=== PATIENT | male | born 1985 | race Caucasian/White ===

== ENCOUNTER 2022-01-21 15:54 | Emergency (ER) | payer OTHER, SELFPAY ==
[2022-01-21 16:00] VITALS: BP 169/96; PULSE 83; RESP 16; TEMP 37.1; O2SAT 98
--- NOTE | 2022-01-21 16:29 | ED.URI ---
HPI - URI/Sore Throat General Chief Complaint: Upper Respiratory Infection Stated Complaint: Sore Throat/Chest Congestion Time Seen by Provider: 01/21/22 16:29 Source: patient, RN notes reviewed and old records reviewed Mode of arrival: ambulatory Limitations: no limitations History of Present Illness HPI Narrative: 36-year-old male who presents to [facility] with complaints of sore throat, ringing in his ears with fullness especially to the right ear, cough and some nasal drainage for the past 1 week duration. Patient denies any fevers chill or sweats,denies any body aches, patient has had COVID vaccinations and also flu shot. MD elicited complaint: cough, sore throat and other (ear fullness) Pertinent past history: seasonal allergies and other (asthma) Onset (ago): week(s) Consistency: constant Severity: moderate Pain scale (0-10): 5 Description of mucous: clear Able to tolerate fluids by mouth: Yes Treatments prior to arrival: other (cough drops) Related Data Home Medications Medication Instructions Recorded Confirmed alprazolam [Xanax] 0.5 mg PO TID PRN 01/21/22 01/21/22 sumatriptan succinate 100 mg PO DAILY PRN 01/21/22 01/21/22 Allergies Allergy/AdvReac Type Severity Reaction Status Date / Time ampicillin Allergy Mild Rash Verified 01/21/22 16:17 Penicillins Allergy Mild Rash Verified 01/21/22 16:17 amoxicillin Allergy Unknown Rash Verified 01/21/22 16:17 vancomycin Allergy Unknown Rash Verified 01/21/22 16:17 Review of Systems Review of Systems: CONSTITUTIONAL: Denies fever, chills, or sweats. EYES: Denies visual changes, redness, or discharge. ENT: Positive rhinorrhea, congestion, sore throat, or otalgia with fullness right ear CARDIOVASCULAR: Denies chest pain, palpitations, or edema. RESPIRATORY: Positive cough denies any dyspnea. GASTROINTESTINAL: Denies abdominal pain, nausea, vomiting, or diarrhea. GENITOURINARY: Denies dysuria or hematuria. SKIN: Denies rash or itching. MUSCULOSKELETAL: Denies back pain, joint pain, or myalgia. NEUROLOGIC: Denies headache, numbness, or weakness. PSYCHIATRIC: Positive history of anxiety or depression. All systems reviewed & are unremarkable except as noted in HPI and below PMFSH Past Medical History Medical History (Updated 01/22/22 @ 23:28 by Maite Donis NP) Anxiety Broken arm (~1991) Elevated blood pressure reading in office without diagnosis of hypertension GERD (gastroesophageal reflux disease) Hx of migraines Seasonal asthma Surgical History Surgical History (Updated 01/22/22 @ 23:24 by Maite Donis NP) History of surgery on arm fracture of left humerus with pinning Hx of tonsillectomy (~1999) Family History Family History Mother Hypertension Degenerative disc disease, lumbar Grandparent Malignant neoplasm of prostate Lung cancer Mother Hypertension Grandparent Malignant neoplasm of prostate Family history of lung cancer Other Family history of malignant neoplasm Social History Social History Smoking status: Never smoker Second hand tobacco smoke exposure: No Alcohol intake: current Substance use: never Substance use type: does not use Comments At time of signature, agree with nursing past medical, surgical, social and family history. There is no relevant family history pertinent to the presenting complaint Exam Narrative: GENERAL: Well-appearing, well-nourished, and in no acute distress. HEAD: Normocephalic, atraumatic. EYES: PERRLA and EOMI. ENT: Nares red with clear rhinorrhea no epistaxis. Mucous membranes moist. TMs normal with dull light reflex right ear canal red swollen irritated, throat mild redness with no lesions or exudates, no tonsils present.some post nasal drainage noted. NECK: Supple. No lymphadenopathy CHEST: Clear to auscultation. No respiratory distress. SaO2 98% on room air, n
== END 2022-01-21 16:53 | disposition home or self-care (01) ==
PROVIDERS: Emergency Provider Registered Nurse; PCP Family Medicine
DX: J06.9 Acute upper respiratory infection, unspecified (principal); H60.391 Other infective otitis externa, right ear; F41.9 Anxiety disorder, unspecified
CPT/HCPCS: 87081; 87880; 99213; G0463

== ENCOUNTER 2023-09-16 12:41 | Emergency (ER) | payer OTHER, SELFPAY ==
[2023-09-16] VITALS (11 sets, daily range): BP systolic 115–159; BP diastolic 66–99; PULSE 75–82; RESP 17–20; TEMP 37; O2SAT 98–100
--- NOTE | ~2023-09-16 | XR_ITS ---
XR chest 2V DATE: 09/16/2023 13:03 INDICATION: Upper left chest pain for 2 weeks. Recent diagnosis of hypertension. TECHNIQUE: AP and lateral views COMPARISON: None FINDINGS: Normal heart size. No hilar or mediastinal enlargement. Mild elevation right leaf of diaphragm. No pulmonary infiltrate or consolidation, pleural effusion or pulmonary vascular congestion or pneumo thorax. Included skeletal structures are unremarkable. IMPRESSION: No active cardiopulmonary disease Reviewed, dictated and finalized at location [facility] OPER[employer]
--- NOTE | 2023-09-16 12:42 | ECG_ITS ---
Measurements Intervals Ney Rate: 76 P: 52 NE: 158 QRS: 30 QRSD: 97 T: 24 QT: 258 QTc: 291 Interpretive Statements SINUS RHYTHM POSSIBLE LEFT ATRIAL ENLARGEMENT INCOMPLETE RIGHT BUNDLE BRANCH BLOCK MINIMAL Q WAVES- HIGH LATERAL LEADS NONSPECIFIC ST & T-WAVE ABNORMALITY- ANTEROLAT/INF LEADS BORDERLINE ECG NO PREVIOUS ECG AVAILABLE FOR COMPARISON Electronically Signed On 09-16-2023 13:03:34 NON PROFIT JOB TITLES by Heriberto Cole D.O.
[2023-09-16 13:03] LABS: Basophils Percent Auto 0.1 % (0.2-1.2); Eosinophils Absolute Auto 0.1 K/mm3 (0-0.3); Eosinophils Percent Auto 0.5 % (0-4.4); Hematocrit 47.3 % (42.0-52.0); Hemoglobin 15.9 g/dL (14.0-18.0); Immature Granulocyte Absolute 0.02 K/mm3 (0.00-0.031); Immature Granulocyte Percent A 0.2 % (0-0.5); Lymphocytes Absolute Auto 2.93 K/mm3 (0.9-3.2); Lymphocytes Percent Auto 31.9 % (18.3-44.2); Mean Corpuscular HGB Conc 33.6 g/dl (32-36); Mean Corpuscular Hemoglobin 30.6 pg (26-34); Mean Platelet Volume 9.7 fl (7.4-10.4); Monocytes Absolute Auto 0.4 K/mm3 (0.1-0.6); Monocytes Percent Auto 4.7 % (2.6-8.5); Neutrophils Absolute Auto 5.7 K/mm3 (1.3-6.7); Neutrophils Percent Auto 62.6 % (45.5-73.1); Platelet Count Result 243 k/mm3 (150-375); Red Cell Distribution Width 12.1 % (11.5-14.5); White Blood Count 9.2 K/mm3 (4.5-10.0)
[2023-09-16 13:16] LABS: INR 0.9; Partial Thromboplastin Time 29.3 SECONDS (22.3-36.8); Prothrombin Time 12.8 Seconds (11.1-14.7)
[2023-09-16 13:20] LABS: Alanine Aminotransferase 31 U/L (6-50); Albumin Level 4.9 g/dL (3.5-5.1); Alkaline Phosphatase 44 U/L (38-126); Anion Gap 12 mmol/L (8-16); Aspartate Amino Transferase 27 U/L (17-59); Bilirubin,Total 0.8 mg/dL (0.2-1.3); Blood Urea Nitrogen 10 mg/dL (9-20); Calcium 9.8 mg/dL (8.4-10.2); Carbon Dioxide 26 mmol/L (22-30); Chloride 102 mmol/L (98-107); Estimated CRCL calculation 96 ml/min; Estimated Glomerular Filt Rate > 60; Glucose 96 mg/dL (65-110); Lipase 81 U/L (23-300); Potassium 4.2 mmol/L (3.4-5.0); Sodium 140 mmol/L (137-145)
[2023-09-16 13:30] LABS: Troponin I < 0.012 ng/mL (0.000-0.034)
[2023-09-16] MEDS: MECLIZINE HCL 25 MG TABLET PO (14:54)
--- NOTE | 2023-09-16 15:38 | ED.GENADULT ---
HPI - General Adult General Chief complaint: Chest Pain Stated complaint: Chest Pain, elv BP Time Seen by Provider: 09/16/23 13:59 History of Present Illness HPI narrative: The patient is a 38-year-old male who presents ER with chest discomfort and elevated blood pressure readings. He has been monitoring his blood pressure chronically and is has gone up. He has increased his home medication is also started a new 1 in last 24 hours. He is having some tightness in his chest today went to ER at [facility] and had an EKG however due to the weight he decided to come here. Patient does have some baseline anxiety they take Xanax for but this feels different. Patient reports along with the symptoms over the last month he has been having intermittent dizziness with chest tightness and racing heart. It feels like his vertigo that he has had in the past but more mild. He has only tried meclizine months. No sinus congestion or sore throat or productive cough. No focal weakness or numbness in arm or leg. Related Data Home Medications Medication Instructions Recorded Confirmed alprazolam 0.5 mg tablet (Xanax) 0.5 mg PO TID PRN Panic Attack(S) 01/21/22 04/07/22 sumatriptan succinate 100 mg tablet 100 mg PO DAILY PRN Migraine 01/21/22 04/07/22 Headache losartan 50 mg tablet 50 mg PO 04/07/22 04/07/22 Allergies Allergy/AdvReac Type Severity Reaction Status Date / Time ampicillin Allergy Mild Rash Verified 09/16/23 14:05 Penicillins Allergy Mild Rash Verified 09/16/23 14:05 amoxicillin Allergy Unknown Rash Verified 09/16/23 14:05 vancomycin Allergy Unknown Rash Verified 09/16/23 14:05 Review of Systems Review of Systems: All systems reviewed & are unremarkable except as noted in HPI and below Constitutional: Constitutional: Reports no additional constitutional complaints ENT: Reports dizziness, Denies nasal congestion and Denies sore throat Cardiovascular: Cardiovascular: Reports chest pain, Reports rapid heart rate and Denies radiating jaw, neck or arm pain Respiratory: Respiratory: Reports no additional respiratory complaints Gastrointestinal: Gastrointestinal: Reports no additional gastrointestinal complaints Neurologic: Reports system reviewed and no additional complaints, except as documented PMFSH Past Medical History Medical History Anxiety Broken arm (~1991) Elevated blood pressure reading in office without diagnosis of hypertension GERD (gastroesophageal reflux disease) Hx of migraines Seasonal asthma Surgical History Surgical History History of surgery on arm fracture of left humerus with pinning Hx of tonsillectomy (~1999) Family History Family History Mother Hypertension Degenerative disc disease, lumbar Grandparent Malignant neoplasm of prostate Lung cancer Mother Hypertension Grandparent Malignant neoplasm of prostate Family history of lung cancer Other Family history of malignant neoplasm Social History Social History Smoking status: Never smoker Second hand tobacco smoke exposure: No Alcohol intake: current Substance use: never Substance use type: does not use Living arrangements: with family Exam Narrative: GENERAL: Well-appearing, well-nourished, and in no acute distress. HEAD: Normocephalic, atraumatic. EYES: PERRL and EOMI. ENT: Mucous membranes moist. TMs normal bilaterally. CHEST: Clear to auscultation. No respiratory distress. HEART: Regular rate and rhythm. Normal peripheral pulses. ABDOMEN: Soft, nontender, nondistended. EXTREMITIES: Normal range of motion. No edema. SKIN: Warm, dry, no rash. NEURO: Alert and oriented x3. PSYCH: Normal mood and affect. Course Course Emergency Course: I feel patient's symptoms are a combinati
== END 2023-09-16 15:49 | disposition home or self-care (01) ==
PROVIDERS: Emergency Provider Emergency Medicine; PCP Family Medicine
DX: R07.89 Other chest pain (principal); R42 Dizziness and giddiness; I10 Essential (primary) hypertension; K21.9 Gastro-esophageal reflux disease without esophagitis; F41.9 Anxiety disorder, unspecified; I45.10 Unspecified right bundle-branch block; R94.31 Abnormal electrocardiogram [ECG] [EKG]
CPT/HCPCS: 36415; 71046; 80053; 83690; 84484; 85025; 85610; 85730; 93005; 99284; A9270

== ENCOUNTER 2024-03-28 12:09 | Outpatient (CLI) | payer OTHER, SELFPAY ==
--- NOTE | ~2024-03-28 | XR_ITS ---
Right Shoulder Technique: AP and scapular Y views were obtained. Clinical History: Pain Findings: No fracture or dislocation is seen. Osseous alignment is anatomic. The glenohumeral and acr omioclavicular joint spaces are preserved. Soft tissues are unremarkable. Impression: Unremarkable right shoulder radiographs. Reviewed, dictated and finalized at [facility]. Impression: Unremarkable right shoulder radiographs.
== END 2024-03-28 12:10 | disposition home or self-care (01) ==
LOC: ANHBWCIMG 12:11
PROVIDERS: PCP Family Medicine; Visit Provider Orthopaedic Surgery
DX: M25.511 Pain in right shoulder (principal)
CPT/HCPCS: 73030

== ENCOUNTER 2024-06-24 09:18 | Outpatient (CLI) | payer OTHER, SELFPAY ==
--- NOTE | ~2024-06-24 | MR_ITS ---
MRI of the right shoulder Technique: Axial proton-density fat-sat images, coronal proton density fat-sat and T2 fat-sat images, and sagittal T1-weighted and T2 fat-sat images were acquired. Clinical History: Bursitis Findings: No significant degenerative change at the AC joint present. No subacromial spur. Coracoclav icular, coracoacromial, and coracohumeral ligaments are intact. Supraspinatus and infraspinatus tendons are intact, without partial or full-thickness tear. Subscapul samia tendon is intact. Tendon of long head of the biceps is intact. No labral tear seen. Inferior glenohumeral ligament is intact. No degenerative change or effusion of glenohumeral joint. N o fluid distention of the subacromial/subdeltoid bursa. No muscle atrophy or edema. Impression: No significant abnormality seen. Reviewed, dictated and finalized at [facility]. Impression: No significant abnormality seen.
== END 2024-06-24 09:19 | disposition home or self-care (01) ==
PROVIDERS: PCP Orthopaedic Surgery; Visit Provider Orthopaedic Surgery
DX: M75.51 Bursitis of right shoulder (principal)
CPT/HCPCS: 73221

== ENCOUNTER 2025-01-29 15:46 | Emergency (ER) | payer OTHER, SELFPAY ==
--- NOTE | ~2025-01-29 | CT_ITS ---
History: Back pain with groin paresthesias PROCEDURE: CT lumbar spine without intravenous contrast. COMPARISON: None TECHNIQUE: Multiple contiguous axial images of the lumbar spine were performed without the administration of int ravenous contrast. DLP: 1281 mGy-cm FINDINGS: Straightening of the normal lordotic curvature of the lumbar spine is identified, possibly muscular i n origin. No acute compression fractures are present. No soft tissue abnormality is noted. A broad-based disc protrusion is identified at the level of L2/L3 with trace mass effect on the left neuroforamen. A left paracentral disc protrusion is present at the level of L3/L4 with trace mass effect on the lef t neural foramen. Remaining disc levels are unremarkable. Impression: Straightening of the normal lordotic curvature of the lumbar spine, likely muscular in origin. No acute compression fracture. Degenerative disc disease at the level of L2/L3 and L3/L4. Reviewed, dictated and finalized at location A. Impression: Straightening of the normal lordotic curvature of the lumbar spine, likely musc ular in origin. No acute compression fracture. Degenerative disc disease at the level of L2/L3 and L3/L4.
--- OUTSIDE RECORDS SUMMARY | 2025-01-29 15:48 | XMS_ITS | Encounter Summary ---
Author Organization [facility] Address [address] [place] [address] Phone Care Team Providers Care Supervisor Cell Operation Name Role Phone Daria Salamanca MD Primary Care Provider [phone] Provider, None Unavailable Unavailable Britton Hopson MD Unavailable Luisa Pitts PAC Primary Care Provider + An Isaacs APRN, SWITCH OPERATORS SUPERVISOR Unavailable + [phone] Edward HUTCHINSON MD, Courtney Unavailable [phone] Rodríguez Keita MD Unavailable Catarina Kline APRN, MULTIFOCAL BUTTON GRINDER Unavailable + [phone] Mandie Miner DO Primary Care Provider [phone] Cheri Ozuna APRN, SWITCH OPERATORS SUPERVISOR Unavailable Emilia Reynolds MD Unavailable [phone] Reason for Visit * Reason Comments Medication Refill Encounter Details Date Type Department Care Team (Late Contact Info) Description 02/11/2022 Refill [facility] - Family Medicine [facility] [address] [place] [address] Luisa Pitts, CHELI [address] [place] [address] Medication Refill Social History Tobacco Use Types Packs/Day Years Used Date Smoking Tobacco: Never Smokeless Tobacco: Never Alcohol Use Standard Drinks/Week Comments Yes 0 (1 standard drink = 0.6 oz pur e alcohol) Occasional PHQ-2 Answer Date Recorded Total Score - Questions 1-9 0 10/15 Sex and Gender Information Value Date Recorded Sex Assigned at Not on file Legal Sex Male 3:29 PM BEAM DEPARTMENT SUPERVISOR Gender Identity Not on file Sexual Orientation Not on file COVID-19 Exposure Response Date Recorded In the last 10 days, have yo u been in contact with someone who was confirmed or suspected to have Coronavirus/COVID-19? No / Unsure 02/11/2022 8:44 AM CDT documented as of this encounter Plan of Treatment Upcoming Encounters Date Type Department Care Team (Late st Contact Info) Description 02/07/2025 4:45 PM CDT Physical Therapy [facility] at [facility] [address], [address] [place] [address] Mandie Miner, DO 2 [facility]. [address] [place] [address] Iva Ann, PT [place] Discharge Disposition: Discharged to home or Selfcare 02/10/2025 1:15 PM CDT Office Visit [facility] [address] [place] [address] Emilia Reynolds MD #2 [facility] [address] [place] [address] documented as of this encounter Visit Diagnoses Diagnosis Essential hypertension Unspecified essential hypertension documented in this encounter Additional Health Concerns Infection Onset Date Last Indicated Resolved Time COVID - 19 05/21/2023 05/21/2023 05/31/2023 12:1 6 AM CDT COVID - 19 Confirmed 07/01/2023 07/01/2023 023 12:17 AM BEAM DEPARTMENT SUPERVISOR COVID - 19 07/01/2023 07/01/2023 07/11/2023 12:1 6 AM CDT Assessment Noted Time PHQ-9 Depression Total Score: 0 01/25/20 10:00 AM CDT documented as of this encounter Care Teams Supervisor Cell Operation Relationship Specialty Start Date End Date Daria Salamanca MD [address] [place] [address] PCP - General Family Medicine 12/31/20 09/05/23 Luisa Pitts PAC [address] [place] [address] PCP - General Physician Metallurgical Or Materials Technician 09/06/23 01/24/24 Mandie Miner DO 2 [facility] [address] [place] [address] PCP - General Family Medicine 01/25/24 Provider, None [place] 12/31/20 Britton Hopson MD #2 [facility] [address] [place] [address] Consulting Physician Colon and Rectal Surgery 02/10/23 An Isaacs, ICT BUSINESS DEVELOPMENT MANAGER, SWITCH OPERATORS SUPERVISOR #2 [facility] [address] [place] [address] Nurse Practitioner Advanced Practice Nurse 09/18/23 08/16/24 Lorena Leon III, MD [address] [place] [address] Consulting Physician Urology 10/06/22 Rodríguez Keita MD [address] [place] [id number] Consulting Physician Pulmonary Disease 08/17/23 Catarina Kline APRN, MULTIFOCAL BUTTON GRINDER [address] [place] [address] Nurse Practitioner Advanced Practice Nurse 06/30/22 Cheri Ozuna APRN, SWITCH OPERATORS SUPERVISOR [address] [place] [address] Nurse Practitioner Advanced Practice Nurse 04/19/24 Emilia Reynolds MD #[address] [address] Consulting Physician Urology 07/20/24 documented as of this encounter
--- OUTSIDE RECORDS SUMMARY | 2025-01-29 15:49 | XMS_ITS | Encounter Summary ---
Author Organization [facility] Address [address] [place] [address] Phone Care Team Providers Care Building Associate Name Role Phone Provider, None Unavailable Unavailable Britton Hopson MD Unavailable Luisa Pitts PAC Primary Care Provider + An Isaacs APRN, FLOOR COVERER Unavailable + [phone] Edward HUTCHINSON MD, Courtney Unavailable [phone] Rodríguez Keita MD Unavailable Catarina Kline APRN, SACK CLEANING HAND Unavailable + [phone] Mandie Miner DO Primary Care Provider [phone] Cheri Ozuna APRN, FLOOR COVERER Unavailable Emilia Reynolds MD Unavailable [phone] Reason for Visit * Reason Comments Medication Refill Encounter Details Date Type Department Care Team (Late st Contact Info) Description 01/15/2024 Refill [facility] [address] [place] [id number] Luisa Pitts, CHELI [address] [place] [address] Medication Refill Social History Tobacco Use Types Packs/Day Years Used Date Smoking Tobacco: Never Smokeless Tobacco: Never Alcohol Use Standard Drinks/Week Comments Not Currently 3 (1 standard drink = 0.6 oz pure alcohol) a couple times a week at max, typically a beer or a couple drinks. PHQ-2 Answer Date Recorded Total Score - Questions 1-9 0 03/16 Education Answer Date Recorded What is the highest level of school you have completed or the highest degree you have received? Associate degree: academic program 01/19/2023 Sexually Active Control Partners Comments Yes Female Sex and Gender Information Value Date Recorded Sex Assigned at Not on file Legal Sex Male 3:29 PM BANQUET BARTENDER Gender Identity Not on file Sexual Orientation Not on file documented as of this encounter Miscellaneous Notes * Telephone Encounter - Laurie Wagner CMA - 01/18/2024 3:03 PM CDT All Patient Appointments Provider Department Dept Phone 01/25/2024 9:40 AM Mandie Miner [facility] - [facility] Medicine - [place] [phone] 03/14/2024 11:30 AM Catarina Kline [facility] - Neurology - [place] [phone] * Telephone Encounter - Luisa Pitts PAC - 01/18/2024 1:22 PM CDT I believe patient was planning to establish care with Dr. Mcbride since daira left Not sure if this is still his plan but if so he does not have an appointment with anyone in the office for future * Telephone Encounter - Farrah Joshi RN - 01/15/2024 3:08 PM CDT Last Rx 09/16/23 Medication failed the protocol, provider to review and approve the medication order if appropriate. Requested Prescriptions Pending Prescriptions Disp Refills ALPRAZolam (XANAX) 0.5 MG Tablet [Pharmacy Med Name: ALPRAZOLAM 0.5MG TABLETS] 30 Tablet 0 Sig: TAKE 1 TABLET BY MOUTH THREE TIMES DAILY NEEDED FOR ANXIETY Not Delegated - Benzodiazepines Protocol Failed - 01/15/2024 2:44 PM Failed - This refill cannot be delegated Passed - Visit with relevant provider in past 12 months or upcoming 90 days Recent Visits Date Type Provider Dept 09/28/23 Office Visit Dashawn Gutierrez APRN, FLOOR COVERER [facility] [place] 09/03/23 Office Visit Luisa Pitts, PAC [facility] [place] 08/03/23 Office Visit Luisa Pitts, PAC [facility] [place] 06/01/23 Office Visit Luisa Pitts, PAC [facility] [place] 05/04/23 Office Visit Luisa Pitts, PAC [facility] [place] 04/13/23 Office Visit Shahbaz Cho MD [facility] [place] 02/16/23 Office Visit Daria Salamanca MD [facility] [place] 01/26/23 Office Visit Luisa Pitts, PAC [facility] [place] 01/19/23 Office Visit [facility] Showing recent visits within past 365 days and meeting all other requirements Future Appointments No visits were found meeting these conditions. Showing future appointments within next 90 days and meeting all other requirements documented in this encounter Plan of Treatment Upcoming Encounters Date Type Department Care Team (Late st Contact Info) Description 02/07/2025 4:45 PM CDT Physical Therapy [facility] [address] [facility], [address] [place] [id number] Mandie Miner, DO 2 [facility] [address] [place] [address] Iva Ann, PT [place] Discharge Disposition: Discharged to home or Selfcare 02/10/2025 1:15 PM CDT Office Visit [facility] [address] [place] [address] Emilia Reynolds MD #[address] [address] documented as of this encounter Goals Goal Patient Goal Type Associated Problems Recent Progress Patient-Stated? Author reduce stress Behavioral Health On track(2022 8:49 AM CDT) Yes Nicol Medina LCSW Learn anxiety coping skills Behavioral Health On track(2022 8:49 AM CDT) No Nicol Medina LCSW Note: Goal/Objective: Improve coping skills to identify and manage stress/anxiety. Anticipated Time Frame for Goal Completion: 6 months Goal Reviewed with: patient Readiness to change: Thinking about making a change Department associated with goal: [facility] Steps to achieve goal: will attend counseling/psychotherapy sessions at least once monthly, at least 6 sessions, utilizing individual and/or group sessions to express thoughts and feelings. to identify, verbalize and process at least three contributing factors/triggers to anxiety. to identify and verbalize at least three actions/skills to prevent and/or cope with anxiety. to put into action, at least one time weekly, for one month, an action/skill to prevent and or cope with anxiety. reduce impact of other people's opinions Behavioral Health On track(2022 8:49 AM CDT) Yes Nicol Medina LCSW documented as of this encounter Visit Diagnoses Diagnosis Panic disorder Panic disorder without agoraphobia documented in this encounter Additional Health Concerns Assessment Noted Time PHQ-9 Depression Total Score: 0 04/13/20 23 1:00 PM CDT documented as of this encounter Care Teams Building Associate Relationship Specialty Start Date End Date Luisa Pitts PAC [address] [place] [address] PCP - General Physician Investigator Claims 09/06/23 01/24/24 Mandie Miner DO 2 [email or web address] [address] [place] [address] PCP - General Family Medicine 01/25/24 Provider, None [place] 12/31/20 Britton Hopson MD #2 [facility] [address] [place] [address] Consulting Physician Colon and Rectal Surgery 02/10/23 An Isaacs, CONSTRUCTION CHECKER, FLOOR COVERER #2 [facility] [address] [place] [address] Nurse Practitioner Advanced Practice Nurse 09/18/23 08/16/24 Lorena Leon III, MD [address] [place] [address] Consulting Physician Urology 10/06/22 Rodríguez Keita MD #[address] [place] [address] Consulting Physician Pulmonary Disease 08/17/23 Catarina Kline APRN, SACK CLEANING HAND [address] [place] [address] Nurse Practitioner Advanced Practice Nurse 06/30/22 Cheri Ozuna APRN, FLOOR COVERER [address] [place] [address] Nurse Practitioner Advanced Practice Nurse 04/19/24 Emilia Reynolds MD #2 [facility] [address] [place] [address] Consulting Physician Urology 07/20/24 documented as of this encounter
--- OUTSIDE RECORDS SUMMARY | 2025-01-29 15:49 | XMS_ITS | Encounter Summary ---
Author Organization [facility] Address [address] [place] [address] [place] [address] Phone Care Team Providers Care Sports Journalist Name Role Phone Daria Salamanca MD Primary Care Provider [phone] Provider, None Unavailable Unavailable Britton Hopson MD Unavailable Luisa Pitts PAC Primary Care Provider + An Isaacs APRN, TARGETING ACQUISITION OFFICER Unavailable + [phone] Edward HUTCHINSON MD, Courtney Unavailable +[phone] Rodríguez Keita MD Unavailable Catarina Kline APRN, SHOE WORKER Unavailable + [phone] Mandie Miner DO Primary Care Provider [phone] Cheri Ozuna APRN, TARGETING ACQUISITION OFFICER Unavailable Emilia Reynolds MD Unavailable [phone] Reason for Visit * Reason Comments Medication Refill Encounter Details Date Type Department Care Team (Late st Contact Info) Description 03/16/2022 Refill [facility] - Family Medicine 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 No / Unsure 03/04/2022 7:05 PM CDT documented as of this encounter Miscellaneous Notes * Telephone Encounter - Farrah Joshi RN - 03/18/2022 12:52 PM CDT Name from pharmacy: AMLODIPINE BESYLATE 5MG TABLETS Will file in chart as: amLODIPine (NORVASC) 5 MG Tablet The original prescription was discontinued on 02/26/2022 by Luisa Pitts, PAC documented in this encounter Plan of Treatment Upcoming Encounters Date Type Department Care Team (Late st Contact Info) Description 02/07/2025 4:45 PM CDT Physical Therapy [facility] at [facility] [address], [address] [place] [address] Mandie Miner, DO 2 [facility] [address] [place] [address] Iva Ann, [place] Discharge Disposition: Discharged to home or Selfcare 02/10/2025 1:15 PM CDT Office Visit [facility] #2 [place] [address] Emilia Reynolds MD #2 [facility] [address] [place] [address] documented as of this encounter Visit Diagnoses Diagnosis Essential hypertension Unspecified essential hypertension documented in this encounter Additional Health Concerns Infection Onset Date Last Indicated Resolved Time COVID - 19 05/21/2023 05/21/2023 05/31/2023 12:1 6 AM CDT COVID - 19 Confirmed 07/01/2023 07/01/2023 023 12:17 AM CASHIER HOST/HOSTESS COVID - 19 07/01/2023 07/01/2023 07/11/2023 12:1 6 AM CDT Assessment Noted Time PHQ-9 Depression Total Score: 0 01/25/20 10:00 AM CDT documented as of this encounter Care Teams Sports Journalist Relationship Specialty Start Date End Date Daria Salamanca MD #2 [place] [address] PCP - General Family Medicine 12/31/20 09/05/23 Luisa Pitts PAC #2 [place] [address] PCP - General Physician Bilingual Middle School Teacher 09/06/23 01/24/24 Mandie Miner DO 2 [facility] [address] [place] [address] PCP - General Family Medicine 01/25/24 Provider, None [place] 12/31/20 Britton Hopson MD #2 [facility] [address] [place] [address] Consulting Physician Colon and Rectal Surgery 02/10/23 An Isaacs, HOME PERFORMANCE CONSULTANT, TARGETING ACQUISITION OFFICER #2 [facility] [address] [place] [address] Nurse Practitioner Advanced Practice Nurse 09/18/23 08/16/24 Lorena Leon III, MD #2 [place] [address] Consulting Physician Urology 10/06/22 Rodríguez Keita MD #2 [place] [address] Consulting Physician Pulmonary Disease 08/17/23 Catarina Kline APRN, SHOE WORKER #2 [place] [address] Nurse Practitioner Advanced Practice Nurse 06/30/22 Cheri Ozuna APRN, TARGETING ACQUISITION OFFICER [address]2 [place] [address] Nurse Practitioner Advanced Practice Nurse 04/19/24 Emilia Reynolds MD #[address] [address] Consulting Physician Urology 07/20/24 documented as of this encounter
--- OUTSIDE RECORDS SUMMARY | 2025-01-29 15:49 | XMS_ITS | Encounter Summary ---
Author Organization [facility] Address [address] [place] [place] [address] Phone Care Team Providers Care Principal Clerk Typist Name Role Phone Provider, None Unavailable Unavailable Britton Hopson MD Unavailable An Isaacs APRN, SPEEDOMETER MECHANIC Unavailable + [phone] Edward HUTCHINSON MD, Courtney Unavailable [phone] Rodríguez Keita MD Unavailable Catarina Kline APRN, PUBLIC HEALTH CLINICAL NURSE SPECIALIST Unavailable + [phone] Mandie Miner DO Primary Care Provider [phone] Cheri Ozuna APRN, SPEEDOMETER MECHANIC Unavailable Emilia Reynolds MD Unavailable [phone] Reason for Referral * PT/OT/ST (Routine) - Closed Specialty Diagnoses / Procedures Referred By Contac t Referred To Contact Physical Therapy Diagnoses Bursitis of right shoulder Right shoulder pain, unspecified chronicity Gregg Tello MD [address] [facility] [address] [place] [address] Phone: tel: fax: [facility] [address], [address] [address] Phone: tel: fax:[phone] Referral ID Status Reason Start Date Expiration Date Visits Re quested Visits Authorized [id number] Closed 03/30/2024 50 60 Scheduling Instructions Encounter Details Date Type Department Care Team (Latest Contact Info) Description 03/30/2024 Transcribe Orders [facility] [address] [place] [address] Gregg Tello MD [address] [facility] [address] [place] [address] Bursitis of right shoulder (Primary Dx); Right shoulder pain, unspecified chronicity Social History Tobacco Use Types Packs/Day Years Used Date Smoking Tobacco: Never Smokeless Tobacco: Never Alcohol Use Standard Drinks/Week Comments Not Currently 3 (1 standard drink = 0.6 oz pure alcohol) a couple times a week at max, typically a beer or a couple drinks. [facility] Utilities Answer Date Recorded In the past 12 months has [employer], gas, oil, or water [employer] threatened to shut off services in your home? No 01/25/2024 Social Connection and Isolation Panel [NHANES] A nswer Date Recorded In a typical week, how many times do you talk on the phone with family, friends, or neighbors? Three times a week 01/25/2024 How often do you get togethe r with friends or relatives? Once a week 01/25/2024 How often do you attend chur or advent services? Never 01/25/2024 Do you belong to any clubs o r organizations such as zoroastrian groups, unions, fraternal or athletic groups, or school groups? No 01/25/2024 How often do you attend meet ings of the clubs or organizations you belong to? Never 01/25/2024 Are you , , di vorced, , never , or living with a partner? 01/25/2024 AUDIT-C Answer Date Recorded Q1: How often do you have a drink containing alc ohol? Monthly or less 01/25/2024 Q2: How many drinks containi ng alcohol do you have on a typical day when you are drinking? 1 or 2 01/25/2024 Q3: How often do you have si x or more drinks on one occasion? Never 01/25/2024 Overall Financial Resource Strain (CARDIA) Answe r Date Recorded How hard is it for you to pa y for the very basics like food, housing, medical care, and heating? Somewhat hard 01/25/2024 PHQ-2 Answer Date Recorded Total Score - Questions 1-9 0 3 09/2022 [facility] - Occupational Stress Questionnaire Answer Date Recorded Do you feel stress - tense, restless, nervous, or anxious, or unable to sleep at night because your mind is troubled all the time - these days? Rather much 01/25/2024 Exercise Vital Sign Answer Date Recorde d On average, how many days pe r week do you engage in moderate to strenuous exercise (like a brisk walk)? 4 days 01/25/2024 On average, how many minutes do you engage in exercise at this level? 40 min 01/25/2024 Hunger Vital Sign Answer Date Recorded Within the past 12 months, y ou worried that your food would run out before you got the money to buy more. Never true 01/25/20 24 Within the past 12 months, t he food you bought just didn't last and you didn't have money to get more. Never true 01/25/2024 PRAPARE - Transportation Answer Date Re corded In the past 12 months, has l ack of transportation kept you from medical appointments or from getting medications? No 01/12 In the past 12 months, has l ack of transportation kept you from meetings, work, or from getting things needed for daily living? No 01/25/2024 Housing Stability Vital Sign Answer Malick e Recorded In the last 12 months, was t here a time when you were not able to pay the mortgage or rent on time? No 01/25/2024 In the last 12 months, how many places have you lived? 1 01/25/2024 In the last 12 months, was t here a time when you did not have a steady place to sleep or slept in a penitentiary (including now)? No 01/25/2024 Education Answer Date Recorded What is the highest level of school you have completed or the highest degree you have received? 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 [address], [address] [place] [address] Mandie Miner, DO 2 [facility]. [address] [place] [address] Iva Ann, PT [place] Discharge Disposition: Discharged to home or Selfcare 02/10/2025 1:15 PM CDT Office Visit [facility] #2 [place] [address] Emilia Reynolds MD #2 [facility] [address] [place] [address] Scheduled Referrals Name Type Priority Associated Diagnoses Orde r Schedule PHYSICAL THERAPY REFERRAL Outpatient Referral Routine Bursitis of right shoulder Right shoulder pain, unspecified chronicity Expected: 03/30/2024, Expires: 03/30/2025 documented as of this encounter Goals Goal [...] making a change Department associated with goal: [facility] Steps to achieve goal: [...] On track(2022 8:49 AM CDT) Yes Nicol Medina, LAVINIA documented as of this encounter Visit Diagnoses Diagnosis Bursitis of right shoulder- Primary Disorders of bursae and tendons in shoulder region, unspecified Right shoulder pain, unspecified chronicity documented in this encounter Additional Health Concerns Assessment Noted Time PHQ-9 Depression Total Score: 0 04/13/20 23 1:00 PM CDT documented as of this encounter Care Teams Principal Clerk Typist Relationship Specialty Start Date End Date Mandie Miner DO 2 [facility] [address] [facility]. [address] [place] [address] PCP - General Family Medicine 01/25/24 Provider, None [place] 12/31/20 Britton Hopson MD #2 [facility] [address] [place] [address] Consulting Physician Colon and Rectal Surgery 02/10/23 An Isaacs, AIRLINE STEWARDESS, SPEEDOMETER MECHANIC #2 [facility] [address] [place] [address] Nurse Practitioner Advanced Practice Nurse 09/18/23 08/16/24 Lorena Leon III, MD #2 [place] [address] Consulting Physician Urology 10/06/22 Rodríguez Keita MD #2 [place] [address] Consulting Physician Pulmonary Disease 08/17/23 Catarina Kline APRN, PUBLIC HEALTH CLINICAL NURSE SPECIALIST #2 [place] [address] Nurse Practitioner Advanced Practice Nurse 06/30/22 Cheri Ozuna APRN, SPEEDOMETER MECHANIC #2 [place] [address] Nurse Practitioner Advanced Practice Nurse 04/19/24 Emilia Reynolds MD #[address] [address] Consulting Physician Urology 07/20/24 documented as of this encounter
--- OUTSIDE RECORDS SUMMARY | 2025-01-29 15:49 | XMS_ITS | Encounter Summary ---
Author Organization [facility] Address [address] [place] [place] [address] Phone Care Team Providers Care Administrative Support Assistant Name Role Phone Daria Salamanca MD Primary Care Provider [phone] Provider, None Unavailable Unavailable Britton Hopson MD Unavailable Luisa Pitts Primary Care Provider + An Isaacs SUPPORT WORKER, WAREHOUSE TEAM MEMBER Unavailable + [phone] Edward HUTCHINSON MD, Courtney Unavailable [phone] Rodríguez Keita MD Unavailable Catarina Kline APRN, TROUT FARMER Unavailable + [phone] Mandie Miner DO Primary Care Provider [phone] Cheri Ozuna APRN, WAREHOUSE TEAM MEMBER Unavailable Emilia Reynolds MD Unavailable [phone] Reason for Visit * Reason Comments Medication Refill Encounter Details Date Type Department Care Team (Late st Contact Info) Description 08/26/2023 Refill [facility] #2 [place] [address] Daria Salamanca MD #2 [place] [address] Medication Refill Social History Tobacco Use Types [...] on file 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 Requested Prescriptions Pending Prescriptions Disp Refills SUMAtriptan (IMITREX) 100 MG Tablet [Pharmacy Med Name: SUMATRIPTAN 100MG TABLETS] 9 Tablet 3 Sig: TAKE 1 TABLET BY MOUTH 1 TIME FOR UP TO 1 DOSE NEEDED DIRECTED FOR HEADACHE. MAY REPEAT DOSE IN 2 HOURS IF HEADACHE RECURS Not Delegated - Serotonin Agonists (Oral and Nasal) Protocol Failed - 08/26/2023 6:32 AM Failed - This refill cannot be delegated; check utilization no more than 9 doses per month Passed - Visit with relevant provider in past 24 months or upcoming 90 days Recent Visits Date Type Provider Dept 08/03/23 Office Visit Luisa Pitts PAC [facility] 06/01/23 Office Visit Luisa Pitts, CHELI [facility] 05/04/23 Office Visit Luisa Pitts, CHELI [facility] [place] 04/13/23 Office Visit Shahbaz Cho MD [facility] 02/16/23 Office Visit Daria Salamanca MD [facility] 01/26/23 Office Visit Luisa Pitts PAC [facility] 01/19/23 Office Visit Daria Salamanca MD [facility] 11/03/22 Office Visit Dashawn Gutierrez APRN, LUIS [facility] 09/29/22 Office Visit Daria Slaamanca MD [facility] 06/12/22 Office Visit Luisa Pitts, CHELI [facility] Showing recent visits within past 730 days and meeting all other requirements Future Appointments No visits were found meeting these conditions. Showing future appointments within next 90 days and meeting all other requirements Passed - No documented Systolic BP > 200 within past 3 months Passed - Number of active Serotonergic medications less than 3 ERY ATTENDANT documented in this encounter Plan of Treatment Upcoming Encounters Date Type Department Care Team (Late st Contact Info) Description 02/07/2025 4:45 PM CDT [facility] [address] [facility] [place] [address] Mandie Miner, DO 2 [facility]. [address] [place] [address] Iva Ann, PT [place] Discharge Disposition: Discharged to home or Selfcare 02/10/2025 1:15 PM CDT Office Visit [facility] #2 [place] [address] Emilia Reynolds MD #2 [facility] [address] [place] [address] documented as of this encounter Goals Goal [...] making a change Department associated with goal: [facility] Steps to achieve goal: [...] as of this encounter Visit Diagnoses Diagnosis Episodic migraine documented in this encounter Additional Health Concerns Assessment Noted Time PHQ-9 Depression Total Score: 0 04/13/20 23 1:00 PM CDT documented as of this encounter Care Teams Administrative Support Assistant Relationship Specialty Start Date End Date Daria Salamanca MD #2 [place] [address] PCP - General Family Medicine 12/31/20 09/05/23 Luisa Pitts PAC #2 [place] [address] PCP - General Physician Chain Tender 09/06/23 01/24/24 Mandie Miner DO 2 [facility] [address] [place] [address] PCP - General Family Medicine 01/25/24 Provider, None [place] 12/31/20 Britton Hopson MD #[address] [address] Consulting Physician Colon and Rectal Surgery 02/10/23 An Isaacs SUPPORT WORKER, WAREHOUSE TEAM MEMBER #2 [facility] [address] [place] [address] Nurse Practitioner Advanced Practice Nurse 09/18/23 08/16/24 Lorena Leon III, MD #2 [place] [address] Consulting Physician Urology 10/06/22 Rodríguez Keita MD #2 [place] [address] Consulting Physician Pulmonary Disease 08/17/23 Catarina Kline APRN, TROUT FARMER #2 [place] [address] Nurse Practitioner Advanced Practice Nurse 06/30/22 Cheri Ozuna APRN, WAREHOUSE TEAM MEMBER #[address] [place] [address] Nurse Practitioner Advanced Practice Nurse 04/19/24 Emilia Reynolds MD #[address] [address] Consulting Physician Urology 07/20/24 documented as of this encounter
--- OUTSIDE RECORDS SUMMARY | 2025-01-29 15:49 | XMS_ITS | Encounter Summary ---
Author Organization [facility] Address [address] [place] [address] Phone Care Team Providers Care Fur Sorter Name Role Phone Daria Salamanca MD Primary Care Provider [phone] Provider, None Unavailable Unavailable Britton Hopson MD Unavailable Luisa Pitts PAC Primary Care Provider + An Isaacs APRN, COBOL DEVELOPER Unavailable + [phone] Edward HUTCHINSON MD, Courtney Unavailable [phone] Rodríguez Keita MD Unavailable Catarina Kline APRN, LICENSE INSPECTOR Unavailable + [phone] Mandie Miner DO Primary Care Provider [phone] Cheri Ozuna APRN, COBOL DEVELOPER Unavailable Emilia Reynolds MD Unavailable [phone] Reason for Visit * Reason Comments Medication Refill Encounter Details Date Type Department Care Team (Late st Contact Info) Description 04/11/2023 Refill [facility] #2 [place] [address] Luisa Pitts, CHELI #2 [place] [address] Medication Refill Social History Tobacco Use Types [...] on file Legal Sex Male 3:[address] Gender Identity Not on file Sexual Orientation Not on file COVID-19 Exposure Response Date Recorded In the last 10 days, have yo u been in contact with someone who was confirmed or suspected to have Coronavirus/COVID-19? No / Unsure 04/13/2023 1:21 PM CDT documented as of this encounter Functional Status * Question Answer Date of Assessment Author Little interest or pleasure in doing things Not at all 04/13/2023 1:00 PM THIAGOT Laurie Wagner CMA Feeling down, depressed, or hopeless Not at all 04/13/2023 1:00 PM CDT Laurie Wagner CMA * Over the past 2 weeks, how often have you been bothered by any of the following problems? Question Answer Date of Assessment Author Patient Health Questionnaire -2 Score 0 04/13/2023 1:00 PM CDT Laurie Wagner CMA documented as of this encounter Miscellaneous Notes * Telephone Encounter - Farrah Joshi RN - 04/13/2023 7:44 AM CDT Ordered 02/09/23 for 12 weeks. documented in this encounter Plan of Treatment Upcoming Encounters Date Type Department Care Team (Late st Contact Info) Description 02/07/2025 4:45 PM CDT Physical Therapy [facility] [address] [place] [address] Mandie Miner DO 2 [facility] [address] [place] [address] Iva Ann, PT [place] Discharge Disposition: Discharged to home or Selfcare 02/10/2025 1:15 PM CDT Office Visit [facility] #2 [place] [address] Emilia Reynolds MD #2 [facility] [address] [place] [address] documented as of this encounter Visit Diagnoses Diagnosis Vitamin D deficiency Unspecified vitamin D deficiency documented in this encounter Additional Health Concerns Infection Onset Date Last Indicated Resolved Time COVID - 19 05/21/2023 05/21/2023 05/31/2023 12:1 6 AM CDT COVID - 19 Confirmed 07/01/2023 07/01/2023 023 12:[address] SPECIALIST COVID - 19 07/01/2023 07/01/2023 07/11/2023 12:1 6 AM CDT Assessment Noted Time PHQ-9 Depression Total Score: 0 01/25/20 21 10:00 AM CDT documented as of this encounter Care Teams Fur Sorter Relationship Specialty Start Date End Date Daria Salamanca MD #2 [place] [address] PCP - General Family Medicine 12/31/20 09/05/23 Luisa Pitts PAC #2 [place] [address] PCP - General Physician Accounts Payable Representative 09/06/23 01/24/24 Mandie Miner DO 2 [facility] [address] [place] [address] PCP - General Family Medicine 01/25/24 Provider, None [place] 12/31/20 Britton Hopson MD #2 [facility] [address] [place] [address] Consulting Physician Colon and Rectal Surgery 02/10/23 An Isaacs, ASSURANCE SERVICES MANAGER HEALTH CARE, COBOL DEVELOPER #2 [facility] [address] [place] [address] Nurse Practitioner Advanced Practice Nurse 09/18/23 08/16/24 Lorena Leon III, MD #2 [place] [address] Consulting Physician Urology 10/06/22 Rodríguez Keita MD #2 [place] [address] Consulting Physician Pulmonary Disease 08/17/23 Catarina Kline, ASSURANCE SERVICES MANAGER HEALTH CARE, LICENSE INSPECTOR #2 [place] [address] Nurse Practitioner Advanced Practice Nurse 06/30/22 Cheri Ozuna ASSURANCE SERVICES MANAGER HEALTH CARE, COBOL DEVELOPER #2 [place] [address] Nurse Practitioner Advanced Practice Nurse 04/19/24 Emilia Reynolds MD #2 [facility] [address] [place] [address] Consulting Physician Urology 07/20/24 documented as of this encounter
--- OUTSIDE RECORDS SUMMARY | 2025-01-29 15:49 | XMS_ITS | Encounter Summary ---
Author Organization [facility] Address [address] [place] [address] Phone Care Team Providers Care Civil Service Worker Name Role Phone Provider, None Unavailable Unavailable Britton Hopson MD Unavailable Edward HUTCHINSON MD, Courtney Unavailable [phone] Rodríguez Keita MD Unavailable Catarina Kline APRN, PICK UP WORKER Unavailable + [phone] Mandie Miner DO Primary Care Provider [phone] Cheri Ozuna APRN, MIDDLE SCHOOL READING TEACHER Unavailable Emilia Reynolds MD Unavailable [phone] Reason for Visit * Reason Comments Medication Refill Encounter Details Date Type Department Care Team (Late st Contact Info) Description 12/25/2024 [facility]ill [facility] - [place] #2 [place] [address] Cheri Ozuna APRN, MIDDLE SCHOOL READING TEACHER #2 [place] [address] Medication Refill Social History Tobacco Use Types Packs/Day Years Used Date Smoking Tobacco: Never Smokeless Tobacco: Never Alcohol Use Standard Drinks/Week Comments Yes 0 (1 standard drink = 0.6 oz pur e alcohol) occassional [facility] Utilities Answer Date Recorded In the past 12 months has th e electric, gas, oil, or water company threatened to shut off services in your [...] 01/25/2024 How often do you attend chur ch or yazidi services? Never 01/25/2024 Do you belong to any clubs o r organizations such as hindu groups, unions, fraternal or athletic groups, or [...] Recorded Total Score - Questions 1-9 0 10/0 04/2024 [facility] [place] of Occupat ional Health - Occupational Stress Questionnaire Answer Date Recorded [...] place to sleep or slept in a chcf (including now)? No 01/25/2024 Education Answer Date Recorded What is the highest level of school you have completed or the highest degree you have received? 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 documented in this encounter Plan of Treatment Upcoming Encounters Date Type Department Care Team (Late st Contact Info) Description 02/07/2025 4:45 PM CDT Physical Therapy [facility] [address], [address] [place] [address] Mandie Miner, DO 2 [facility] [facility]. [address] [place] [address] Iva Ann, PT [place] Discharge Disposition: Discharged to home or Selfcare 02/10/2025 1:15 PM CDT Office Visit [facility] [facility] [address] Emilia Reynolds MD #2 [facility] [address] [place] [address] documented as of this encounter Goals Goal [...] making a change Department associated with goal: [facility] Steps to achieve [...] as of this encounter Visit Diagnoses Diagnosis Gastroesophageal reflux disease, unspecified whether esophagitis present documented in this encounter Additional Health Concerns Assessment Noted Time PHQ-9 Depression Total Score: 0 06/21/20 24 4:05 PM CDT documented as of this encounter Care Teams Civil Service Worker Relationship Specialty Start Date End Date Mandie Miner DO 2 [facility] [address] [place] [address] PCP - General Family Medicine 01/25/24 Provider, None [place] 12/31/20 Britton Hopson MD [address] [address] Consulting Physician Colon and Rectal Surgery 02/10/23 Lorena Leon III, MD #[address] [facility] [place] [address] Consulting Physician Urology 10/06/22 Rodríguez Keita MD #2 [place] [address] Consulting Physician Pulmonary Disease 08/17/23 Catarina Kline APRN, PICK UP WORKER #2 [place] [address] Nurse Practitioner Advanced Practice Nurse 06/30/22 Cheri Ozuna APRN, MIDDLE SCHOOL READING TEACHER #2 [place] [address] Nurse Practitioner Advanced Practice Nurse 04/19/24 Emilia Reynolds MD [address] [address] Consulting Physician Urology 07/20/24 documented as of this encounter
--- OUTSIDE RECORDS SUMMARY | 2025-01-29 15:49 | XMS_ITS | Encounter Summary ---
Author Organization [facility] Address [address] [place] [address] Phone Care Team Providers Care Senior Gis Analyst Name Role Phone Daria Salamanca MD Primary Care Provider [phone] Provider, None Unavailable Unavailable Britton Hopson MD Unavailable Luisa Pitts Primary Care Provider + An Isaacs HEEL COVER SPLITTER, SUPERVISOR POLE YARD Unavailable + [phone] Edward HUTCHINSON MD, Courtney Unavailable [phone] Rodríguez Keita MD Unavailable Catarina Kline APRN, CLIENT SERVICES MANAGER Unavailable + [phone] Mandie Miner DO Primary Care Provider [phone] Cheri Ozuna APRN, SUPERVISOR POLE YARD Unavailable Emilia Reynolds MD Unavailable [phone] Reason for Visit * Reason Comments Medication Refill Encounter Details Date Type Department Care Team (Late st Contact Info) Description 06/09/2022 Refill [facility] - [facility] Medicine [facility] #[address] [place] [address] Daria Salamanca MD #2 [place] [address] Medication Refill Social History Tobacco Use Types Packs/Day Years Used Date Smoking Tobacco: Never Smokeless Tobacco: Never Alcohol Use Standard Drinks/Week Comments Not Currently 0 (1 standard drink = 0.6 oz pur e alcohol) PHQ-2 Answer Date Recorded Total Score - Questions 1-9 0 10/15 Education Answer Date Recorded What is the highest level of school you have completed or the highest degree you have received? 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 No / Unsure 06/12/2022 11:12 AM CDT documented as of this encounter Miscellaneous Notes * Telephone Encounter - Farrah Joshi RN - 06/09/2022 2:41 PM CDT Name from pharmacy: SUMATRIPTAN 100MG TABLETS Will file in chart as: SUMAtriptan (IMITREX) 100 MG Tablet The original prescription was reordered on 06/09/2022 by Daria Salamanca MD. * Telephone Encounter - Farrah Joshi RN - 06/09/2022 12:09 PM CDT duplicate documented in this encounter Plan of Treatment Upcoming Encounters Date Type Department Care Team (Late st Contact Info) Description 02/07/2025 4:45 PM CDT Physical Therapy [facility] [address] [facility], [address] [place] [phone] Mandie Miner, DO [address] [place] [address] Iva Ann, PT [place] Discharge Disposition: Discharged to home or Selfcare 02/10/2025 1:15 PM CDT Office Visit [facility] #2 [place] [address] Emilia Reynolds MD #2 [facility] [address] [place] [address] documented as of this encounter Visit Diagnoses Not on filedocumented in this encounter Additional Health Concerns Infection Onset Date Last Indicated Resolved Time COVID - 19 05/21/2023 05/21/2023 05/31/2023 12:1 6 AM CDT COVID - 19 Confirmed 07/01/2023 07/01/2023 023 12:17 AM [employer] COVID - 19 07/01/2023 07/01/2023 07/11/2023 12:1 6 AM CDT Assessment Noted Time PHQ-9 Depression Total Score: 0 01/25/20 10:00 AM CDT documented as of this encounter Care Teams Senior Gis Analyst Relationship Specialty Start Date End Date Daria Salamanca MD #2 [place] [address] PCP - General Family Medicine 12/31/20 09/05/23 Luisa Pitts PAC #2 [place] [address] PCP - General Physician Overcoil Stepper 09/06/23 01/24/24 Mandie Miner DO 2 [facility] [address] [place] [address] PCP - General Family Medicine 01/25/24 Provider, None [place] 12/31/20 Britton Hopson MD #2 [facility] [address] [place] [address] Consulting Physician Colon and Rectal Surgery 02/10/23 An Isaacs, HEEL COVER SPLITTER, SUPERVISOR POLE YARD #2 [facility] [address] [place] [address] Nurse Practitioner Advanced Practice Nurse 09/18/23 08/16/24 Lorena Leon III, MD #2 [place] [address] Consulting Physician Urology 10/06/22 Rodríguez Keita MD #2 [place] [address] Consulting Physician Pulmonary Disease 08/17/23 Catarina Kline, HEEL COVER SPLITTER, CLIENT SERVICES MANAGER #2 [place] [address] Nurse Practitioner Advanced Practice Nurse 06/30/22 Cheri Ozuna HEEL COVER SPLITTER, SUPERVISOR POLE YARD #[address] [place] [address] Nurse Practitioner Advanced Practice Nurse 04/19/24 Emilia Reynolds MD #2 [facility] [address] [place] [address] Consulting Physician Urology 07/20/24 documented as of this encounter
--- OUTSIDE RECORDS SUMMARY | 2025-01-29 15:49 | XMS_ITS | Encounter Summary ---
Author Organization [facility] Address [address] [place] [address] Phone Care Team Providers Care Yarn Winder Name Role Phone Provider, None Unavailable Unavailable Britton Hopson MD Unavailable Edward HUTCHINSON MD, Courtney Unavailable [phone] Rodríguez Keita MD Unavailable Catarina Kline APRN, ASSOCIATE DIRECTOR FINANCIAL AID Unavailable + [phone] Mandie Miner DO Primary Care Provider [phone] Cheri Ozuna APRN, RADAR SCIENTIST Unavailable Emilia Reynolds MD Unavailable [phone] Reason for Visit * Reason Comments Medication Refill Encounter Details Date Type Department Care Team (Late st Contact Info) Description 08/22/2024 Refill [facility] - [place] #2 [place] [address] Cheri Ozuna APRN, RADAR SCIENTIST #2 [place] [address] Medication Refill Social History Tobacco Use Types Packs/Day Years Used Date Smoking Tobacco: Never Smokeless Tobacco: Never Alcohol Use Standard Drinks/Week Comments Not Currently 3 (1 standard drink = 0.6 oz pure alcohol) a couple times a week at max, typically a beer or a couple drinks. [facility] Utilities Answer Date Recorded In the past [...] often do you attend chur ch or orthodox services? Never 01/25/2024 Do you belong to any clubs o r organizations such as temple groups, unions, fraternal or athletic groups, or [...] Score - Questions 1-9 0 10/0 04/2024 [facility] [place] of Occupat ional Health - Occupational Stress [...] place to sleep or slept in a half-way (including now)? No 01/25/2024 Education Answer Date Recorded What is the highest level of school you have completed or the highest degree you have received? 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 REVIEWER documented in this encounter Plan of Treatment Upcoming Encounters Date Type Department Care Team (Late st Contact Info) Description 02/07/2025 4:45 PM CDT Physical Therapy [facility] at [facility] [address] [facility], [address] [place] [address] Mandie Miner, DO 2 [facility]. [address] [place] [address] Iva Ann, PT [place] Discharge Disposition: Discharged to home or Selfcare 02/10/2025 1:15 PM CDT Office Visit [facility] #2 [place] [address] Emilia Reynolds MD #2 [facility] [address] [place] [address] documented as of this encounter Goals Goal [...] making a change Department associated with goal: [facility] Steps to [...] documented as of this encounter Care Teams Yarn Winder Relationship Specialty Start Date End Date Mandie Miner DO 2 [facility] [place] [address] [place] [address] PCP - General Family Medicine 01/25/24 Provider, None [place] 12/31/20 Britton Hopson MD #[address] [address] Consulting Physician Colon and Rectal Surgery 02/10/23 Lorena Leon III, MD #2 [place] [address] Consulting Physician Urology 10/06/22 Rodríguez Keita MD #2 [place] [address] Consulting Physician Pulmonary Disease 08/17/23 Catarina Kline APRN, ASSOCIATE DIRECTOR FINANCIAL AID #2 [place] [address] Nurse Practitioner Advanced Practice Nurse 06/30/22 Cheri Ozuna APRN, RADAR SCIENTIST #2 [place] [address] Nurse Practitioner Advanced Practice Nurse 04/19/24 Emilia Reynolds MD #[address] [address] Consulting Physician Urology 07/20/24 documented as of this encounter
--- OUTSIDE RECORDS SUMMARY | 2025-01-29 15:49 | XMS_ITS | Continuity of Care Document ---
Author Organization [facility] Address [address] [place] [address] Phone Care Team Providers Care Hospice Admitting Clerk Name Role Phone [facility] Unavailable Unavail able Isaiah Anthony Unavailable Unavailable Procedures Procedure Date SV Poly Carb Sph +/- 7.12 To +/- 20 D Ju [facility] Medical CL Replacement - Vistakon Disp W/BW Soft [facility] Office/outpatient Visit, Est Advance Directives Directive Yes / No Effective Date File Name No Information Encounters Encounter Description Practice Location Reason(s) For Visit Diagnoses Date Provider Providers Copied on Encounter [facility], [address] [place] [address] [address], [place], [place], [id number], [place] tel:[phone] SEC [facility] No Information 9 [facility] [address] [facility], [facility] [address], [place], [place], [id number], [place]. tel:[phone] Referring Provider: Fabio Vega, [address] [place] [address] [address], [place], [address]. tel:[phone] barba Provider: Isaiah Anthony, [address] [place] [address], [place], [address]. tel:[phone] [facility], [id number] [place] [address] [address], [place], [place], [id number], [place] tel:[phone] SEC [facility] No Information Nov-0 1-200 [address] [place]. [address] [facility] , [address], [place], [address], [place]. tel:[phone] Office/outpat ient Visit, [facility], [address], [place], [place], [id number], [place] tel:[phone] SEC [facility] No Information Sep-2 5-200 7 [address] [place]. [address] [facility] [address] , [address], [place], [address], [place]. tel:[phone] Family History Family Member Type Diagnosis Age At Onset No Information Payers Payer name Insurance type Covered democrat ID Authoriza tion(s) No Information Social History Type Description Quantity Date Captured Comments Sex Male Smoking Status No Information Chief Complaint And Reason For Visit No Information Reason For Referral Reason For Referral No Information History Of Present Illness Encounter Date Complaint History Of Prese nt Illness No Information Functional Status Date Functional Assessmen t No Information Instructions Date Instruction Additional Infor mation No Information Assessments Type Assessment Date No Information Patient Care Teams Name Effective Dates (start - stop) Status Members No Information
--- OUTSIDE RECORDS SUMMARY | 2025-01-29 15:49 | XMS_ITS | Clinical Summary ---
Author Organization [facility] [address] [address] [facility]TR[facility] CALL C ENTER Address [address] [place] [address] Phone Care Team Providers Care Job Press Feeder Name Role Phone Provider, None Unavailable Unavailable Britton Hopson MD Unavailable Edward HUTCHINSON MD, Courtney Unavailable [phone] Rodríguez Keita MD Unavailable Catarina Kline APRN, SUPERVISOR [employer] Unavailable + [phone] Mandie Miner DO Primary Care Provider [phone] Cheri Ozuna APRN, CLINICAL LABORATORY MANAGER Unavailable Emilia Reynolds MD Unavailable [phone] Allergies Active Allergy Reactions Criticality Noted Date Comments Ciprofloxacin Diarrhea Medium 10/06/2022 Penicillins Swelling Medium 07/23/2019 As a kid Vancomycin Rash,Itching,Swelling Medium 05/25/2015 Medications acetaminophen (TYLENOL) 500 MG Tablet Take 500 mg by mouth every 4 hours as needed. Active SUMAtriptan (IMITREX) 20 MG/ACT Solution SPRAY ENTIRE CONTENTS OF ONE SPRAYER IN NOSTRIL SOON AFTER ONSET OF HEADACHE. SECOND DOSE MAY BE SPRAY IN OTHER NOSTRIL AFTER 2 HOURS NEEDED. 04/21/20 23 Active albuterol 108 (90 Base) MCG/ACT Aerosol Solution take 2 Puffs by inhalation every 4 hours as needed for Wheezing or Cough. 8.5 g 10/25/20 23 Active SUMAtriptan (IMITREX) 100 MG TabletIndication s:Episodic migraine TAKE 1 TABLET BY MOUTH 1 TIME FOR UP TO 1 DOSE NEEDED DIRECTED FOR HEADACHE. MAY REPEAT DOSE IN 2 HOURS IF HEADACHE RECURS 9 Tablet 3 08/26/20 23 Active ALPRAZolam (XANAX) 0.5 MG TabletIndication s:Panic disorder TAKE 1 TABLET BY MOUTH THREE TIMES DAILY NEEDED FOR ANXIETY 30 Tablet 08/25/20 24 Active losartan (COZAAR) 100 MG Tablet Take 1 Tablet by mouth daily. 90 Tablet 1 11/02/19 25 Active Vitamin D3 1000 UNIT Tablet TAKE 1 TABLET BY MOUTH DAILY 90 Tablet 1 12/26/19 25 Active esomeprazole (NexIUM) 20 MG CAPSULE DELAYED RELEASE Take 1 Capsule by mouth daily. 90 Capsule 1 12/30/19 25 Active amLODIPine (NORVASC) 5 MG Tablet Take 1 Tablet by mouth every evening. 90 Tablet 01/05/20 25 Active tamsulosin (FLOMAX) 0.4 MG Capsule Take 1 Capsule by mouth daily. 90 Capsule 3 01/14/20 25 Active celecoxib (CeleBREX) 100 MG Capsule Take 1 Capsule by mouth 2 times daily. 60 Capsule 3 01/21/20 25 Active cyclobenzaprine (FLEXERIL) 5 MG Tablet Take 1 Tablet by mouth 3 times daily as needed for Muscle spasms for up to 14 days. 30 Tablet 01/21/20 25 Active ondansetron (ZOFRAN-ODT) 4 MG TABLET DISPERSIBLEIndic ations:Acute intractable headache, unspecified headache type Take 1 Tablet by mouth every 8 hours as needed for Nausea - 1st line. 20 Tablet 08/31/20 23 025 Discontinu ed(Lack of Efficacy) meclizine (ANTIVERT) 25 MG Tablet Take 1 Tablet by mouth 3 times daily as needed for Dizziness. 30 Tablet 09/03/20 23 025 Discontinu ed(Lack of Efficacy) amLODIPine (NORVASC) 10 MG TabletIndication s:Primary hypertension Take 1 Tablet by mouth daily. 90 Tablet 3 10/26/19 24 025 Discontinu ed(Duplica te Therapy) buPROPion (WELLBUTRIN) 150 MG XL tablet Take 1 Tablet by mouth every morning. 90 Tablet 01/25/20 24 025 Discontinu ed(Med List Clean Up) amLODIPine (NORVASC) 5 MG Tablet Take 5 mg by mouth every evening. 025 Discontinu ed(Reorder ) sucralfate (CARAFATE) 1 GM TabletIndication s:Gastroesophage al reflux disease, unspecified whether esophagitis present Take 1 Tablet by mouth 3 times daily. 120 Tablet 04/19/20 24 025 Discontinu ed(Med List Clean Up) FAMOTIDINE PO Take 10 mg by mouth as needed for Other. 025 Discontinu ed(Error) sulfamethoxazole -trimethoprim DS (BACTRIM DS, SEPTRA DS) 800-160 MG TabletIndication s:Cystitis Take 1 Tablet by mouth 2 times daily for 7 days. 14 Tablet 01/06/20 25 025 phenazopyridine (PYRIDIUM) 100 MG Tablet Take 1 Tablet by mouth 3 times daily for 3 days. 9 Tablet 01/14/20 25 025 Active Problems Problem Noted Date Diagnosed Date Esophageal dysphagia 11/04/2024 Left testicular pain 06/21/2024 LEWIS (obstructive sleep apnea) 08/17/2023 NILAY (generalized anxiety disorder) 05/04/2023 Stress 05/04/2023 Vitamin D deficiency 02/09/2023 Migraine without aura and wi thout status migrainosus, not intractable 01/24/2021 Panic disorder 01/24/2021 Class 1 obesity 01/24/2021 Chronic fatigue 01/24/2021 Seasonal allergies 01/24/2021 Hypertension Encounters Date Type Department Care Team Description [facility] [address] [place] [address] Mandie Miner, DO Advice Only 01/20/2025 3:20 PM CDT Office Visit [facility] [address] [place] [address] Mandie Miner, DO Low back pain without sciatica, unspecified back pain laterality, unspecified chronicity (Primary Dx); Hyperlipidemia, unspecified hyperlipidemia type; NILAY (generalized anxiety disorder) Discharge Disposition: Discharged to home or Selfcare 01/20/2025 [facility] [address] [place] [phone] Mandie Miner, DO Follow-up 01/20/2025 Travel 01/20/2025 Nurse Triage [facility] Call Center [address] [place] [address] Mandie Miner, DO Back Pain 01/13/2025 10:40 AM CDT Office Visit [facility] [place] [address] Mandie Miner, DO Left testicular pain (Primary Dx); Dysuria; Hypertension, unspecified type; LEWIS (obstructive sleep apnea) Discharge Disposition: Discharged to home or Selfcare 01/13/2025 Results Follow-Up [facility] [place] [address] Mandie Miner, DO URINALYSIS REFLEX IF INDICATED BY ABNORMAL RESULTS, CBC WITH AUTO DIFFERENTIAL 01/13/2025 Travel 01/05/2025 3:45 PM CDT Office Visit [facility] [place] [phone] Mamadou Saavedra MD Cystitis (Primary Dx) Discharge Disposition: Discharged to home or Selfcare 01/05/2025 Travel 01/04/2025 Refill [facility] [place] [address] Mandie Miner, DO Medication Refill 12/30/2024 Results Follow-Up [facility] [place] [address] Emilia Reynolds MD PSA DIAGNOSTIC,TOTAL 12/30/2024 Travel 12/25/2024 Refill [facility] [place] [address] Luisa Pitts, PAC Medication Refill 12/25/2024 Refill [facility] [place] [address] [place] [address] Cheri Ozuna APRN, CLINICAL LABORATORY MANAGER Medication Refill 12/02/2024 2:45 PM CDT Office Visit [facility] [place] [address] Khoi Mcbride MD Zaid, Uwais Bin, MD Left inguinal hernia (Primary Dx); Left testicular pain; Family history of prostate cancer Discharge Disposition: Discharged to home or Selfcare 12/02/2024 Travel 11/10/2024 Results [facility] [place] [address] Trent Ritter MD Pathology Surgical 11/04/2024 10:24 AM SUPERVISOR TUNNEL HEADING Anesthesia Event [facility] Periop [address] [place] [address] Diaz Knowles APRN, WASHING MACHINE REPAIRER 11/04/2024 9:00 AM SUPERVISOR TUNNEL HEADING - 11/04/2024 9:30 AM SUPERVISOR TUNNEL HEADING [facility] [address] [place] [address] Trent Ritter MD EGD-distal antral biopsy-GE junction biopsy-esophageal biopsy at 37cm r/o EOE-esophageal biopsy at 34cm r/o EOE 11/04/2024 8:15 AM SUPERVISOR TUNNEL HEADING Ancillary Procedure [facility] Lab Main [address] [place] [address] Trent Ritter MD 11/04/2024 8:05 AM SUPERVISOR TUNNEL HEADING - 11/04/2024 11:38 AM SUPERVISOR TUNNEL HEADING Hospital Encounter [facility] Lab Preop/Pacu II [address] [place] [address] Trent Ritter MD Esophageal dysphagia Discharge Disposition: Discharged to home or Selfcare 11/04/2024 Travel 11/02/2024 MyChart RX Renewal [facility] [place] [phone] Luisa Pitts, CHELI Medication Renewal Reviewed from Last 3 Months Immunizations Immunization Administration Dates Next Due Covid-19, Mrna, Lnp-s, Pf, 3 0 Mcg/0.3 Ml Dose ([employer]) 12/14/2020,11/24/2019 Influenza Vaccine, MDCK,quad rivalent, pres free 06/18/2020,06/13/2019,07/02/2018 Influenza Vaccine, Quadrivalent, PF 06/01/2023,0 06/12/2022,05/27/2021 Influenza, Injectable, Mdck, Preservative Free 06/18/2020,06/13/2019,07/02/2018 Influenza, Intradermal, Quad rivalent, Preservative Free 09/18/2016,06/14/2015 TDAP Vaccine 02/14/2015,02/14/2015 Family History Medical History Relation Name Comments No Known Problems Daughter Hypertension Father Other-comment Half-Sister 2 GI issues Diabetes Mother Cancer Paternal Grandfather prostat e Cancer Paternal Grandmother lung No Known Problems Son Relation Name Status Comments Daughter Alive Father Alive Half-Sister 1 Alive Half-Sister 2 Alive Mother Alive Paternal Grandfather Paternal Grandmother Son Alive Social History Tobacco Use Types Packs/Day Years Used Date Smoking Tobacco: Never Smokeless Tobacco: Never Tobacco Cessation:Counseling Given: No Alcohol Use Standard Drinks/Week Comments Yes 0 (1 standard drink = 0.6 oz pur e alcohol) occassional [facility] Utilities Answer Date Recorded In the past 12 months has e [employer], gas, oil, or water [employer] threatened to shut off services in your home? Patient declined 01/20/2025 Social Connection and Isolation Panel [NHANES] A nswer Date Recorded In a typical week, how many times do you talk on the phone with family, friends, or neighbors? Patient declined 01/20/2025 How often do you get togethe r with friends or relatives? Patient declined 01/20/2025 How often do you attend jewish or sabianist serv ices? Patient declined 01/20/2025 Do you belong to any clubs o r organizations such as jewish groups, unions, fraternal or athletic groups, or school groups? Patient declined 01/20/2025 How often do you attend meet ings of the clubs or organizations you belong to? Patient declined 01/20/2025 Are you , , di vorced, , never , or living with a partner? Patient declined 01/20/2025 AUDIT-C Answer Date Recorded Q1: How often do you have a drink containing alc ohol? Monthly or less 01/20/2025 Q2: How many drinks containi ng alcohol do you have on a typical day when you are drinking? 1 or 2 01/20/2025 Q3: How often do you have si x or more drinks on one occasion? Never 01/20/2025 Overall Financial Resource Strain (CARDIA) Answe r Date Recorded How hard is it for you to pa y for the very basics like food, housing, medical care, and heating? Patient declined 01/20/2025 PHQ-2 Answer Date Recorded Total Score - Questions 1-9 0 10/2024 [facility] - Occupational Stress Questionnaire Answer Date Recorded Do you feel stress - tense, restless, nervous, or anxious, or unable to sleep at night because your mind is troubled all the time - these days? Patient declined 01/20/2025 Exercise Vital Sign Answer Date Recorde d On average, how many days pe r week do you engage in moderate to strenuous exercise (like a brisk walk)? 5 days 01/20/2025 On average, how many minutes do you engage in exercise at this level? 20 min 01/20/2025 Hunger Vital Sign Answer Date Recorded Within the past 12 months, y ou worried that your food would run out before you got the money to buy more. Patient declined Within the past 12 months, t he food you bought just didn't last and you didn't have money to get more. Patient declined 05/2025 PRAPARE - Transportation Answer Date Re corded In the past 12 months, has l ack of transportation kept you from medical appointments or from getting medications? Patient declined 01/20/2025 In the past 12 months, has l ack of transportation kept you from meetings, work, or from getting things needed for daily living? Patient declined 01/20/2025 Housing Stability Vital Sign Answer Malick e [...] place to sleep or slept in a senior living (including now)? No 01/25/2024 Housing Stability Vital Sign Answer Malikc e Recorded In the last 12 months, was t here a time when you were not able to pay the mortgage or rent on time? Patient declined 01/21/20 Number of Times Moved in the Last Year Not on fi le 01/20/2025 At any time in the past 12 m [facility], were you homeless or living in a senior living (including now)? Patient declined 01/20/2025 Education Answer Date Recorded What is the highest level of school you have completed or the highest degree you have received? Associate degree: academic program 01/19/2023 Sexually Active Control Partners Comments Yes Female Sex and Gender Information Value Date Recorded Sex Assigned at Not on file Legal Sex Male 3:29 PM SUPERVISOR TUNNEL HEADING Gender Identity Not on file Sexual Orientation Not on file Last Filed Vital Signs Vital Sign Reading Time Taken Comments Blood Pressure 132/82 01/20/2025 3:11 PM CDT Pulse 84 01/20/2025 3:11 PM CDT Temperature 36.3 C (97.3 F) 01/20/2025 3:11 PM CDT Respiratory Rate 16 01/20/2025 3:11 PM CDT Oxygen Saturation 100% 01/20/2025 3:11 PM CDT Inhaled Oxygen Concentration - - Weight 112.5 kg (248 lb) 01/20/2025 3:11 PM CDT Height 185.4 cm (6' 1 ) 01/20/2025 3:11 PM CDT Body Mass Index 32.72 01/20/2025 3:11 PM CDT Plan of Treatment Upcoming Encounters Date Type Department Care Team (Late st Contact Info) Description 02/07/2025 4:45 PM CDT Physical Therapy [facility] [address], [address] [place] [phone] Mandie Miner, DO 2 [facility] [address] [place] [address] Iva Ann, PT [place] Discharge Disposition: Discharged to home or Selfcare 02/10/2025 1:15 PM CDT Office Visit [facility] [address] [place] [address] Emilia Reynolds MD [address]2 [facility], [address] [place] [address] Health Maintenance Due Date Last Done Comments Influenza Immunization (Season Ended) 2025 06/01/2023, 06/12/2022, 05/27/2021, Additional history exists Respiratory Syncytial Virus (RSV) Immunization (Adult) (1 - 1-dose 75+ series) 2061 DTaP/Tdap/Td Immunization Discontinued 02/14/2015, 11/2014 Td Immunization Every 10 Years (Adults With 1 Tdap) Discontinued 02/14/2015, 02/14/2015 SARS-COV-2 Immunization Discontinued 08/31/20 21, 12/14/2020, 11/23/2020, Additional history exists Hepatitis C Virus (HCV) Screening Completed 02/02/2023 Hepatitis B Immunization Discontinued Human Papillomavirus (HPV) Immunization Aged Out No longer eligible based on patient's age to complete this topic Meningococcal Immunization (ACWY) Aged Out No longer eligible based on patient's age to complete this topic Pneumococcal Immunization Combined Aged Out No longer eligible based on patient's age to complete this topic Rotavirus Immunization Aged Out No lo nger eligible based on patient's age to complete this topic Goals Goal Patient Goal Type Associated Problems [...] making a change Department associated with goal: [facility] Steps to achieve goal: [...] 8:49 AM CDT) Yes Nicol Medina LCSW Procedures Procedure Name Priority Date/Time Associated Diagnosis Comments CBC WITH AUTO DIFFERENTIAL Routine 01/13 11:52 AM CDT Left testicular pain Dysuria Hypertension, unspecified type LEWIS (obstructive sleep apnea) URINALYSIS REFLEX IF INDICAT ED BY ABNORMAL RESULTS Routine 01/13/2025 11:52 AM CDT Dysuria LIPID PANEL Routine 01/13/2025 11:52 AM CDT Left testicular pain Dysuria Hypertension, unspecified type LEWIS (obstructive sleep apnea) CMP (COMPREHENSIVE METABOLIC PANEL) Routine 01/13/2025 11:52 AM CDT Left testicular pain Dysuria Hypertension, unspecified type LEWIS (obstructive sleep apnea) COMPLETE BLOOD COUNT (CBC) W ITH DIFF Routine 01/13/2025 11:52 AM CDT Left testicular pain Dysuria Hypertension, unspecified type LEWIS (obstructive sleep apnea) POCT GLYCOSYLATED HEMOGLOBIN Routine 10/2024 11:35 AM CDT Dysuria CULTURE, URINE Routine 01/06/2025 10:27 AM CDT Cystitis POCT UA AUTOMATED W/O MICRO Routine 12/14 3:59 PM CDT Cystitis PSA DIAGNOSTIC,TOTAL Routine 12/30/2024 7:58 AM CDT Left testicular pain Family history of prostate cancer PATHOLOGY SURGICAL Routine 11/04/2024 10:34 AM SUPERVISOR TUNNEL HEADING UT ESOPHAGOGASTRODUODENOSCOP Y TRANSORAL DIAGNOSTIC 11/04/2024 10:24 AM SUPERVISOR TUNNEL HEADING EGD-distal antral biopsy-GE junction biopsy-esophage al biopsy at 37cm r/o EOE-esophageal biopsy at 34cm r/o EOE Special Needs Dx reflux UT EGD FLEXIBLE TRANSNASAL D X W/COLLJ SPEC BR/WA 11/04/2024 10:24 AM SUPERVISOR TUNNEL HEADING EGD-distal antral biopsy-GE junction biopsy-esophage al biopsy at 37cm r/o EOE-esophageal biopsy at 34cm r/o EOE Special Needs Dx reflux GI LAB IMAGING - EGD Routine 11/04/2024 8:11 AM SUPERVISOR TUNNEL HEADING HEPATITIS C ANTIBODY Routine 02/02/2023 7:34 AM CDT Need for hepatitis C screening test from Last 3 Months or Most Recently Relevant to Health Maintenance Results * URINALYSIS REFLEX IF INDICATED BY ABNORMAL RESULTS (01/13/2025 11:52 AM CDT) SPECIFIC GRAVITY 1.015 1.003 - 1.030 01/13/2025 12:[address] [facility] URINE PH 6.0 5.0 - 9.0 01/13/2025 12:[address] [facility] WBC ESTERASE Negative Negative 01/13/2025 12:[address] [facility] NITRITE Negative Negative 01/13/2025 12:[address] [facility] PROTEIN, RANDOM URINE Negative Negative 01/13/2025 12:23 PM CDT [facility] URINE GLUCOSE, QUAL Negative Negative 01/13/2025 12:23 PM CDT [facility] URINE KETONES Negative Negative 01/13/2025 12:23 PM CDT [facility] UROBILINOGEN Normal Normal mg/dL 01/13/2025 12:23 PM CDT [facility] URINE BLOOD Negative Negative lee/ul 01/13/2025 12:23 PM CDT [facility] URINALYSIS COLOR Yellow 01/14/20 12:23 PM CDT [facility] URINALYSIS CLARITY Clear 01/13/2025 12:23 PM CDT [facility] Urine URINE SPECIMEN OBTAINED BY CLEAN CATCH PROCEDURE / Unknown Non-Phlebotomy Collection / Unknown 01/13/2025 11:52 AM CDT 01/13/2025 12:13 PM CDT Mandie Miner DO URINE ORDERABLES Final Result [facility] [address] [place] [address] * CBC WITH AUTO DIFFERENTIAL (01/13/2025 11:52 AM CDT) WBC 6.12 4.00 - 12.00 10(3)/mcL 01/13/2025 12:18 PM CDT [facility] RBC 4.80 4.40 - 5.80 10(6)/mcL 01/13/2025 12:18 PM CDT [facility] HEMOGLOBIN (HGB) 15.0 13.0 - 16.5 g/dL 01/13/2025 12:18 PM CDT [facility] HEMATOCRIT (HCT) 43.1 38.0 - 50.0 % 01/13/2025 12:18 PM CDT [facility] MCV 89.8 82.0 - 96.0 fL 01/13/2025 12:18 PM CDT [facility] MCH 31.3 26.0 - 32.0 pg 01/13/2025 12:18 PM CDT [facility] MCHC 34.8 31.0 - 36.0 g/dL 01/13/2025 12:18 PM CDT [facility] PLATELET COUNT 240 140 - 440 10(3)/mcL 01/13/2025 12:18 PM CDT [facility] RDW 12.1 11.8 - 15.5 % 01/13/2025 12:18 PM CDT [facility] MPV 9.8 8.0 - 12.6 fL 01/13/2025 12:18 PM CDT [facility] NEUTROPHILS 49.8 40.0 - 68.0 % 01/13/2025 12:18 PM CDT [facility] LYMPHOCYTES 41.2 19.0 - 49.0 % 01/13/2025 12:18 PM CDT [facility] MONOCYTES 7.8 3.0 - 13.0 % 01/13/2025 12:18 PM CDT [facility] EOSINOPHILS 1.0 0.0 - 8.0 % 01/13/2025 12:18 PM CDT [facility] BASOPHILS 0.2 0.0 - 1.0 % 01/13/2025 12:18 PM CDT [facility] ABSOLUTE NEUTROPHILS 3.05 1.40 - 5.30 10(3)/mcL 01/13/2025 12:18 PM CDT [facility] ABSOLUTE LYMPHOCYTES 2.52 0.90 - 3.30 10(3)/mcL 01/13/2025 12:18 PM CDT [facility] ABSOLUTE MONOCYTES 0.48 0.10 - 0.90 10(3)/mcL 01/13/2025 12:18 PM CDT [facility] ABSOLUTE EOSINOPHIL 0.06 0.00 - 0.50 10(3)/mcL 01/13/2025 12:18 PM CDT [facility] ABSOLUTE BASOPHILS 0.01 0.00 - 0.10 10(3)/mcL 01/13/2025 12:18 PM CDT [facility] NRBC PER 100 WBC 0 01/14/20 12:18 PM CDT [facility] Blood Venipuncture / Unknown 01/13/2025 11:52 AM CDT 01/13/2025 12:15 PM CDT us Mandie Miner DO HEMATOLOGY ORDERABLES Final R esult [facility] [address] [place] [address] * (ABNORMAL) LIPID PANEL (01/13/2025 11:52 AM CDT) CHOLESTEROL 183 <200 mg/dL 01/13/2025 1:37 PM CDT [facility] TRIGLYCERIDES 224(H) <150 mg/dL 01/13/2025 1:37 PM CDT [facility] HDL CHOLESTEROL 26(L) >40 mg/dL 1:37 PM CDT [facility] LDL 112 <130 mg/dL 01/13/2025 1:37 PM CDT [facility] VLDL 45 10 - 50 mg/dL 01/13/2025 1:37 PM CDT [facility] CHOL/HDL RATIO 7.0(H) 0.0 - 4.4 01/13/2025 1:37 PM CDT [facility] NON-HDL CHOLESTEROL 157(H) <130 mg/dL 01/13/2025 1:37 PM CDT [facility] IS THE PATIENT REQUIRED TO BE FASTING? No 01/13/2025 1:37 PM CDT [facility] Blood Venipuncture / Unknown 01/13/2025 11:52 AM CDT 01/13/2025 12:15 PM CDT us Mandie Miner DO CHEMISTRY ORDERABLES Final Re sult [facility] [address] [place] [address] * (ABNORMAL) CMP (COMPREHENSIVE METABOLIC PANEL) (01/13/2025 11:52 AM CDT) SODIUM 141 136 - 145 mmol/L 01/13/2025 1:37 PM CDT [facility] POTASSIUM 4.2 3.5 - 5.1 mmol/L 01/13/2025 1:37 PM CDT [facility] CHLORIDE 107 98 - 107 mmol/L 01/13/2025 1:37 PM CDT [facility] CO2, VENOUS 28 22 - 30 mmol/L 01/13/2025 1:37 PM CDT [facility] ANION GAP 10.2 <18.0 mmol/L 01/13/2025 1:37 PM CDT [facility] GLUCOSE 100(H) 70 - 99 mg/dL 01/13/2025 1:37 PM CDT [facility] BUN 13 9 - 21 mg/dL 01/13/2025 1:37 PM CDT [facility] CREATININE, BLOOD 1.45(H) 0.70 - 1.30 mg/dL 01/13/2025 1:37 PM CDT [facility] BUN/CREATININE RATIO 9(L) 12 - 20 ratio 01/13/2025 1:37 PM CDT [facility] TOTAL PROTEIN 7.5 6.0 - 8.0 g/dL 01/13/2025 1:37 PM CDT [facility] ALBUMIN 4.5 3.5 - 5.0 g/dL 01/13/2025 1:37 PM CDT [facility] A/G RATIO 1.5 1.0 - 2.2 01/13/2025 1:37 PM CDT [facility] CALCIUM 9.2 8.7 - 10.5 mg/dL 01/13/2025 1:37 PM CDT [facility] T BILI 0.6 0.2 - 1.2 mg/dL 01/13/2025 1:[address] [facility] SGOT (AST) 37 <43 U/L 01/13/2025 1:[address] [facility] SGPT (ALT) 34 <56 U/L 01/13/2025 1:[address] [facility] ALKALINE PHOSPHATASE 42 40 - 150 U/L 01/13/2025 1:[address] [facility] IS THE PATIENT REQUIRED TO BE FASTING? No 01/13/2025 1:[address] [facility] GFR, ESTIMATED >60 >=60 01/13/2025 1:37 PM CDT [facility] Comment: Creatinine Clearance is the preferred criteria for selecting drug dose adjustments in renally impaired patients. The GFR is provided as additional pertinent clinical information. GFR is reported in mL/min/1.73 sq m. Calculation based on the Chronic Kidney Disease Epidemiology Collaboration (CKD- EPI) equation refit without adjustment for race. GFR, EST. >60 >=60 025 1:37 PM CDT [facility] GFR, EST. NONAFRICAN 54(L) >=60 01/13/2025 1:37 PM CDT [facility] Blood Venipuncture / Unknown 01/13/2025 11:52 AM CDT 01/13/2025 12:15 PM CDT Narrative Authorizing Provider [id number]|2025-01-29 15:49:00|2025-01-29 15:49:00|XMS_ITS|REGINA THRASHER|External Medical Summaries|[id number]|" Clinical Summary Created on: January 29, 2025 Ramiro Poole : 1985 Sex: Male Author Organization [facility] Address [address] [place] [address] Care Team Providers Care Job Press Feeder Name Role Phone Shaunna Diego MD Primary Care Provider [phone] Allergies Active Allergy Reactions Criticality Noted Date Comments Amoxicillin Itching,Rash Reaction: Itching, , Reaction: Rash, Ampicillin Rash Reaction: Rash, Ciprofloxacin Diarrhea Medium 10/06/2022 Penicillins Itching,Rash,Swelling Medium 05/25/2015 Reaction: Itching, , Reaction: Rash, Vancomycin Itching,Rash,Swelling Medium 05/25/2015 Reaction: Itching, , Reaction: Rash, Medications omeprazole (PriLOSEC) 20 mg capsule take 1 capsule by oral route every day before a meal 0 0 12/27/19 17 Active Additional Information Patient not taking.Reported on 03/05/2020 ALPRAZolam (XANAX) 0.5 mg tablet TAKE 1 TABLET 3 TIMES DAILY NEEDED. 08/22/20 16 Active cetirizine (ZyrTEC) 10 mg tablet Active albuterol HFA (PROVENTIL HFA,VENTOLIN HFA,PROAIR HFA) 90 mcg/actuation inhaler Inhale. Active SUMAtriptan (Imitrex) 100 mg tablet 1 tab PO at onset of headache. May repeat once after 2 hrs if needed. Max 2 in 24 hrs 9 tablet 11 09/02/20 19 Active propranoloL (INDERAL) 80 mg tablet Take 1 tablet (80 mg total) by mouth daily Active methylPREDNISolone (Medrol, Isaiah,) 4 mg DosepackIndication s:Acute SARAVANAN (middle ear effusion), right follow package directions 21 tablet 12/19/19 21 Active Additional Information Patient not taking.Reported on 09/13/2023 cholecalciferol 25 mcg (1,000 unit) tablet Take 1 tablet (1,000 Units total) by mouth daily 04/15/20 Active losartan (COZAAR) 100 mg tablet Take 1 tablet (100 mg total) by mouth daily 09/06/20 23 Active ondansetron ODT (ZOFRAN-ODT) 4 mg disintegrating tablet Take 1 tablet (4 mg total) by mouth every 8 (eight) hours as needed 08/31/20 Active Active Problems Problem Noted Date Diagnosed Date LEWIS (obstructive sleep apnea) 08/17/2023 NILAY (generalized anxiety disorder) 05/04/2023 Vitamin D deficiency 02/09/2023 Valsalva retinopathy 11/09/2019 Retinal hemorrhage of right eye 11/09/2019 Acute intractable headache 05/06/2018 Migraine without aura and wi thout status migrainosus, not intractable 02/25/2018 Tinnitus of both ears 02/25/2018 Upper respiratory tract infection 12/26/2016 Overview (02/06/2017): Upper respiratory tract infection, unspecified type Hypertension 09/18/2016 Overview (12/19/2016): Hypertension Adjustment disorder with anxious mood 09/03/2016 Gastroesophageal reflux disease 08/22/2016 Irritable bowel syndrome 08/22/2016 Difficulty in swallowing 08/22/2016 Subjective visual disturbances 05/25/2015 Immunizations Immunization Administration Dates Next Due Flucelvax Influenza Quad 06/13/2019,07/02/2018 Influenza, Quadrivalent, Emily l Culture-based MDCK, Preservative Free, Antibiotic Free, Intramuscular 06/18/2020 Influenza, Quadrivalent, Spl it, Preservative Free, Intramuscular 06/01/2023,06/12/2022,05/27/2021,09/18,06/14/2015 Influenza, Trivalent, Cell Culture-based MDCK, Preservative Free, Antibiotic Free, Intramuscular 06/18/2020,06/13/2019,07/02/2018 Pfizer SARS-CoV-2 Monovalent Vaccination (12+ Yrs) PURPLE 12/14/2020,11/24/2019 Tdap 02/14/2015 Surgical History Surgery Date Site/Laterality Comments TONSILLECTOMY Tonsillectomy FOREARM FRACTURE SURGERY Treatment Of Forearm Fracture - (Added by TW Conv) Medical History Medical History Date Comments Gastroesophageal reflux disease 02/2013 GERD Hypertension Hypertension Personal history of other di seases of male genital organs History of prostatitis - (Ad ded by Conv) Anxiety Allergic rhinitis Irritable bowel syndrome Family History Medical History Relation Name Comments Anxiety disorder Father Anxiety - ( Added by TW Conv) Gastroesophageal Reflux Disease Father GERD; Irritable bowel syndrome Father Irr itable bowel disease; Lung cancer Maternal Grandfather Family history of lung cancer - Relation: Grandfather (Added by TW Conv) Prostate cancer Maternal Grandfather Fami ly history of malignant neoplasm of prostate - Relation: Grandfather (Added by TW Conv) Diabetes Mother Diabetes mellit us; Hypertension Mother Hypertension; Lung cancer Other Family history of lung cancer - Relation: Grandmother (Added by Conv) Relation Name Status Comments Father Maternal Grandfather Mother Other Social History Tobacco Use Types Packs/Day Years Used Date Smoking Tobacco: Never Smokeless Tobacco: Never Alcohol Use Standard Drinks/Week Comments Yes 0 (1 standard drink = 0.6 oz pur e alcohol) rarely Personal Safety Answer Date Recorded Getting School Help Needed Not on file 09/12 Sex and Gender Information Value Date Recorded Sex Assigned at Not on file Legal Sex Male 3:59 AM SUPERVISOR TUNNEL HEADING Gender Identity Male 02/29/2020 3:45 PM CDT Sexual Orientation Straight 02/29/2020 3: 45 PM CDT 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 [employer] Not on file Not on file Not on file Obstetrics History Last Filed Vital Signs Vital Sign Reading Time Taken Comments Blood Pressure 126/82 09/13/2023 12:09 PM SUPERVISOR TUNNEL HEADING Pulse 104 09/13/2023 12:09 PM SUPERVISOR TUNNEL HEADING Temperature 37.1 C (98.8 F) 09/13/2023 12:09 PM SUPERVISOR TUNNEL HEADING Respiratory Rate 18 09/13/2023 12:09 PM SUPERVISOR TUNNEL HEADING Oxygen Saturation 99% 09/13/2023 12:09 PM SUPERVISOR TUNNEL HEADING Inhaled Oxygen Concentration - - Weight 108.4 kg (239 lb) 09/13/2023 12:09 PM SUPERVISOR TUNNEL HEADING Height 182.9 cm (6') 09/13/2023 12:09 PM SUPERVISOR TUNNEL HEADING Body Mass Index 32.41 09/13/2023 12:09 PM SUPERVISOR TUNNEL HEADING Plan of Treatment Health Maintenance Due Date Last Done Comments Depression Screening 1986 Hepatitis C Screening 1986 Varicella Vaccines (1 of 2 - 13+ 2-dose series) 1999 Hepatitis B Screening 2004 Regular Well Visit/Exam 18-64 2004 Covid-19 Vaccine (3 - season) 2024 12/14/2020, 11/24/2019 DTaP/Tdap/Td Vaccine (2 - Td or Tdap) 02/14/2025 02/14/2015 Influenza Vaccine (Season Ended) 2025 06/01/2023, 06/12/2022, 05/27/2021, Additional history exists HPV Vaccines Aged Out No longer eligi ble based on patient's age to complete this topic Pneumococcal vaccine <65 Aged Out No longer eligible based on patient's age to complete this topic Insurance [employer] OPEN [facility] [facility] [facility] Care Teams Job Press Feeder Relationship Specialty Start Date End Date Shaunna Diego MD PCP - General 09/13/17 "
--- OUTSIDE RECORDS SUMMARY | 2025-01-29 15:49 | XMS_ITS | Encounter Summary ---
Author Organization [facility] Address [address] [place] [address] Phone Care Team Providers Care Applications Consultant Name Role Phone Provider, None Unavailable Unavailable Britton Hopson MD Unavailable Luisa Pitts PAC Primary Care Provider + An Isaacs APRN, WASTEWATER ENGINEER Unavailable + [phone] Edward HUTCHINSON MD, Courtney Unavailable [phone] Rodríguez Keita MD Unavailable Catarina Kline APRN, CYLINDER DIE MACHINE OPERATOR Unavailable + [phone] Mandie Miner DO Primary Care Provider [phone] Cheri Ozuna APRN, WASTEWATER ENGINEER Unavailable Emilia Reynolds MD Unavailable [phone] Reason for Visit * Reason Comments Medication Refill Encounter Details Date Type Department Care Team (Late st Contact Info) Description 12/28/2023 Refill [facility] [address] [place] [id number] Luisa Pitts, CHELI [address] [place] [address] Medication Refill Social History Tobacco Use Types [...] on file 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 Requested Prescriptions Pending Prescriptions Disp Refills Vitamin D3 1000 UNIT Tablet [Pharmacy Med Name: VITAMIN D3 1,000 UNIT TABLETS] 90 Tablet 1 Sig: TAKE 1 TABLET BY MOUTH DAILY Vitamin Supplements (Adult) Protocol Passed - 12/28/2023 10:53 AM Passed - Visit with relevant provider in past 12 months or upcoming 90 days Recent Visits Date Type Provider Dept 09/28/23 Office Visit Dashawn Gutierrez APRN, LUIS [facility] 09/03/23 Office Visit Luisa Pitts PAC [facility] 08/03/23 Office Visit Luisa Pitts PAC [facility] 06/01/23 Office Visit Luisa Pitts PAC [facility] 05/04/23 Office Visit Luisa Pitts PAC [facility] 04/13/23 Office Visit Shahbaz Cho MD [facility] 02/16/23 Office Visit Daria Salamanca MD [facility] 01/26/23 Office Visit Luisa Pitts PAC [facility] 01/19/23 Office Visit Daria Salamanca MD [facility] Showing recent visits within past 365 days and meeting all other requirements Future Appointments No visits were found meeting these conditions. Showing future appointments within next 90 days and meeting all other requirements Passed - Vitamin D dose not greater than 1.25mg documented in this encounter Plan of Treatment Upcoming Encounters Date Type Department Care Team (Late st Contact Info) Description 02/07/2025 4:45 PM CDT Physical Therapy [facility] at [facility] [address], [address] [place] [address] Mandie Miner, DO 2 [facility] [address] [place] [address] Iva Ann, PT [place] Discharge Disposition: Discharged to home or Selfcare 02/10/2025 1:15 PM CDT Office Visit [facility] [address] [place] [address] Emilia Reynolds MD #2 [facility] [address] [place] [address] documented as of this encounter Goals Goal [...] making a change Department associated with goal: [facility] Steps to achieve [...] filedocumented in this encounter Additional Health Concerns Assessment Noted Time PHQ-9 Depression Total Score: 0 04/13/20 1:00 PM CDT documented as of this encounter Care Teams Applications Consultant Relationship Specialty Start Date End Date Luisa Pitts PAC [address] [place] [address] PCP - General Physician Seat Nailer 09/06/23 01/24/24 Mandie Miner DO 2 [facility] [place] [address] PCP - General Family Medicine 01/25/24 Provider, None [place] 12/31/20 Britton Hopson MD #2 [facility] [address] [place] [address] Consulting Physician Colon and Rectal Surgery 02/10/23 An Isaacs APRN, WASTEWATER ENGINEER #2 [facility] [address] [place] [address] Nurse Practitioner Advanced Practice Nurse 09/18/23 08/16/24 Lorena Leon III, MD [address] [place] [address] Consulting Physician Urology 10/06/22 Rodríguez Keita MD [address] [place] [address] Consulting Physician Pulmonary Disease 08/17/23 Catarina Kline APRN, CYLINDER DIE MACHINE OPERATOR [address] [place] [address] Nurse Practitioner Advanced Practice Nurse 06/30/22 Cheri Ozuna APRN, WASTEWATER ENGINEER [address] [place] [address] Nurse Practitioner Advanced Practice Nurse 04/19/24 Emilia Reynolds MD #[address] [address] Consulting Physician Urology 07/20/24 documented as of this encounter
--- OUTSIDE RECORDS SUMMARY | 2025-01-29 15:49 | XMS_ITS | Encounter Summary ---
Author Organization [facility] Address [address] [place] [address] Phone Care Team Providers Care Construction Equipment Mechanic Helper Name Role Phone Daria Salamanca MD Primary Care Provider [phone] Provider, None Unavailable Unavailable Britton Hopson MD Unavailable Luisa Pitts Primary Care Provider + An Isaacs TEST RIDER, ASSOCIATE MEDIA PLANNER Unavailable + [phone] Edward HUTCHINSON MD, Courtney Unavailable [phone] Rodríguez Keita MD Unavailable Catarina Kline APRN, CERTIFIED MEDICATION TECHNICIAN Unavailable + [phone] Mandie Miner DO Primary Care Provider [phone] Cheri Ozuna APRN, ASSOCIATE MEDIA PLANNER Unavailable Emilia Reynolds MD Unavailable [phone] Reason for Visit * Reason Comments Medication Refill Encounter Details Date Type Department Care Team (Late st Contact Info) Description 04/16/2023 Refill [facility] - Family Medicine [facility] [address] [place] [address] Daria Salamanca MD [address] [place] [address] Medication Refill Social History Tobacco Use Types [...] on file 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 No / Unsure 04/13/2023 1:21 PM CDT documented as of this encounter Miscellaneous Notes * Telephone Encounter - Farrah Joshi RN - 04/21/2023 7:59 AM CDT Name from pharmacy: ALPRAZOLAM 0.5MG TABLETS Will file in chart as: ALPRAZolam (XANAX) 0.5 MG Tablet The original prescription was reordered on 04/20/2023 by Daria Salamanca MD. * Telephone Encounter - Farrah Joshi RN - 04/16/2023 4:40 PM CDT duplicate documented in this encounter Plan of Treatment Upcoming Encounters Date Type Department Care Team (Late st Contact Info) Description 02/07/2025 4:45 PM CDT Physical Therapy [facility] Re[facility] at [facility] [address] [facility], [address] [place] [address] Mandie Miner DO 2 [facility] [address] [place] [address] Iva Ann, PT [place] Discharge Disposition: Discharged to home or Selfcare 02/10/2025 1:15 PM CDT Office Visit [facility] [address] [place] [address] Emilia Reynolds MD #[address] [address] documented as of this encounter Visit Diagnoses Diagnosis Panic disorder Panic disorder without agoraphobia documented in this encounter Additional Health Concerns Infection Onset Date Last Indicated Resolved Time COVID - 19 05/21/2023 05/21/2023 05/31/2023 12:1 6 AM CDT COVID - 19 Confirmed 07/01/2023 07/01/2023 023 12:17 AM RIGGING AND CONTROLS AIRCRAFT MECHANIC COVID - 19 07/01/2023 07/01/2023 07/11/2023 12:1 6 AM CDT Assessment Noted Time PHQ-9 Depression Total Score: 0 04/13/20 1:00 PM CDT documented as of this encounter Care Teams Construction Equipment Mechanic Helper Relationship Specialty Start Date End Date Daria Salamanca MD [address] [place] [address] PCP - General Family Medicine 12/31/20 09/05/23 Luisa Pitts PAC [address] [place] [address] PCP - General Physician Military Science Teacher 09/06/23 01/24/24 Mandie Miner DO 2 [facility] [address] [place] [address] PCP - General Family Medicine 01/25/24 Provider, None [place] 12/31/20 Britton Hopson MD #2 [facility] [address] [place] [address] Consulting Physician Colon and Rectal Surgery 02/10/23 An Isaacs, TEST RIDER, ASSOCIATE MEDIA PLANNER #2 [facility] [address] [place] [address] Nurse Practitioner Advanced Practice Nurse 09/18/23 08/16/24 Lorena Leon III, MD #[address] [place] [address] Consulting Physician Urology 10/06/22 Rodríguez Keita MD #[address] [place] [address] Consulting Physician Pulmonary Disease 08/17/23 Catarina Kline TEST RIDER, CERTIFIED MEDICATION TECHNICIAN [address] [place] [address] Nurse Practitioner Advanced Practice Nurse 06/30/22 Cheri Ozuna APRN, ASSOCIATE MEDIA PLANNER [address] [place] [address] Nurse Practitioner Advanced Practice Nurse 04/19/24 Emilia Reynolds MD #2 [facility] [address] [place] [address] Consulting Physician Urology 07/20/24 documented as of this encounter
--- OUTSIDE RECORDS SUMMARY | 2025-01-29 15:49 | XMS_ITS | Encounter Summary ---
Author Organization [facility] Address [address] [place] [address] Phone Care Team Providers Care Cabinet Mounter Name Role Phone Daria Salamanca MD Primary Care Provider [phone] Provider, None Unavailable Unavailable Britton Hopson MD Unavailable Luisa Pitts Primary Care Provider + An Isaacs FABRICATION SPECIALIST, COW TESTER Unavailable + [phone] Edward HUTCHINSON MD, Courtney Unavailable [phone] Rodríguez Keita MD Unavailable Catarina Kline APRN, SEROLOGIST Unavailable + [phone] Mandie Miner DO Primary Care Provider [phone] Cheri Ozuna APRN, COW TESTER Unavailable Emilia Reynolds MD Unavailable [phone] Reason for Visit * Reason Comments Medication Refill Encounter Details Date Type Department Care Team (Late st Contact Info) Description 04/14/2023 Refill [facility] - Family Medicine [facility] [address] [place] [address] Daria Salamanca MD [address] [place] [address] Medication Refill Social History Tobacco Use Types [...] on file 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 No / Unsure 04/13/2023 1:21 PM CDT documented as of this encounter Plan of Treatment Upcoming Encounters Date Type Department Care Team (Late st Contact Info) Description 02/07/2025 4:45 PM CDT Physical Therapy [facility] Rehab at [facility] [address] [place] [address] Mandie Miner, DO 2 [facility]. [address] [place] [address] Iva Ann, PT [place] Discharge Disposition: Discharged to home or Selfcare 02/10/2025 1:15 PM CDT Office Visit [facility] #[address] [place] [address] Emilia Reynolds MD #2 [facility] [address] [place] [address] documented as of this encounter Visit Diagnoses Not on filedocumented in this encounter Additional Health Concerns Infection Onset Date Last Indicated Resolved Time COVID - 19 05/21/2023 05/21/2023 05/31/2023 12:1 6 AM CDT COVID - 19 Confirmed 07/01/2023 07/01/2023 023 12:17 AM MANAGER OF PHOTOGRAPHY COVID - 19 07/01/2023 07/01/2023 07/11/2023 12:1 6 AM CDT Assessment Noted Time PHQ-9 Depression Total Score: 0 04/13/20 1:00 PM CDT documented as of this encounter Care Teams Cabinet Mounter Relationship Specialty Start Date End Date Daria Salamanca MD #[address] [place] [address] PCP - General Family Medicine 12/31/20 09/05/23 Luisa Pitts PAC #2 [facility] [place] [address] PCP - General Physician Batteryman 09/06/23 01/24/24 Mandie Miner DO 2 [facility]. [address] [place] [address] PCP - General Family Medicine 01/25/24 Provider, None [place] 12/31/20 Britton Hopson MD #[address] [facility] [address] [place] [address] Consulting Physician Colon and Rectal Surgery 02/10/23 An Isaacs APRN, COW TESTER #2 [facility] [address] [place] [address] Nurse Practitioner Advanced Practice Nurse 09/18/23 08/16/24 Lorena Leon III, MD #[address] [place] [address] Consulting Physician Urology 10/06/22 Rodríguez Keita MD #[address] [place] [address] Consulting Physician Pulmonary Disease 08/17/23 Catarina Kline APRN, SEROLOGIST #[address] [place] [address] Nurse Practitioner Advanced Practice Nurse 06/30/22 Cheri Ozuna APRN, COW TESTER #[address] [place] [address] Nurse Practitioner Advanced Practice Nurse 04/19/24 Emilia Reynolds MD #[address] [address] Consulting Physician Urology 07/20/24 documented as of this encounter
--- OUTSIDE RECORDS SUMMARY | 2025-01-29 15:49 | XMS_ITS | Clinical Summary ---
Author Organization [facility] Address [address] [place] [address] Care Team Providers Care Mine Safety Engineer Name Role Phone Shaunna Diego MD Primary Care Provider [phone] Source Comments [facility],non-owned Affiliates and Associated Physician Practices is amultiple site organization consisting of ambulatory clinics and hospital sitesin [place], [place], [place] and [place]. This disclosure is being madepursuant to the Care Everywhere program and may not contain all information available regarding this patient. Last updated 18.[facility] [place] Allergies Active Allergy Reactions Criticality Noted Date Comments Penicillins Swelling,Itching,Rash Medium 05/25/2015 Reaction: Rash, Reaction: Itching, , Reaction: Rash, Reaction: Itching, , Reaction: Rash, Vancomycin Itching,Swelling,Rash Medium 05/25/2015 Reaction: Itching, , Reaction: Rash, Medications * Be aware that medications may not be up to date on this document. Alwaysverify current medications with the patient. SUMAtriptan Succinate (IMITREX PO) Active Active Problems Problem Noted Date Diagnosed Date Acute intractable headache 05/06/2018 Subjective visual disturbances 05/25/2015 Family History Medical History Relation Name Comments Glaucoma Maternal Grandmother Hypertension Mother Relation Name Status Comments Maternal Grandmother Mother Social History Tobacco Use Types Packs/Day Years Used Date Smoking Tobacco: Never Smokeless Tobacco: Never Alcohol Use Standard Drinks/Week Comments Yes 0.8 (1 standard drink = 0.6 oz p ure alcohol) Sex and Gender Information Value Date Recorded Sex Assigned at Not on file Legal Sex Male 10:48 AM CDT Gender Identity Not on file Sexual Orientation Not on file Last Filed Vital Signs Vital Sign Reading Time Taken Comments Blood Pressure 116/74 09/29/2018 12:48 PM DISEASE AND INSECT CONTROL BOSS Pulse 84 09/29/2018 12:48 PM DISEASE AND INSECT CONTROL BOSS Temperature 36.7 C (98 F) 09/29/2018 12:48 PM DISEASE AND INSECT CONTROL BOSS Respiratory Rate 18 05/07/2018 8:00 AM CDT Oxygen Saturation 95% 09/29/2018 12:48 PM DISEASE AND INSECT CONTROL BOSS Inhaled Oxygen Concentration - - Weight 104.3 kg (230 lb) 09/29/2018 12:48 PM DISEASE AND INSECT CONTROL BOSS Height 182.9 cm (6') 09/29/2018 12:48 PM DISEASE AND INSECT CONTROL BOSS Body Mass Index 31.19 09/29/2018 12:48 PM DISEASE AND INSECT CONTROL BOSS Plan of Treatment Health Maintenance Due Date Last Done Comments HIV SCREENING 2001 HEPATITIS C SCREENING 06/30/2004 DTAP/TDAP/TD VACCINES (1 - Tdap) 2005 HEPATITIS B VACCINE (1 of 3 - 19+ 3-dose series) 2005 COVID-19 VACCINE (3 - 2023- season) 2024 12/14/2020, 11/24/2019 DEPRESSION SCREENING 09/14/2024 INFLUENZA VACCINE (Season Ended) 2025 06/12/2022, 05/27/2021, 06/18/2020, Additional history exists ZOSTER VACCINE (1 of 2) 2036 HIB VACCINE Aged Out No longer eligi ble based on patient's age to complete this topic HPV VACCINE Aged Out No longer eligi ble based on patient's age to complete this topic MENINGOCOCCAL (Group B) VACCINE SHARED DECISION-MAKING Aged Out No longer eligible based on patient's age to complete this topic MENINGOCOCCAL GROUPS A/C/Y/W VACCINE Aged Out No longer eligible based on patient's age to complete this topic PNEUMOCOCCAL VACCINE Aged Out No long er eligible based on patient's age to complete this topic Insurance [facility] ANTHEM ANTHEM ANTHEM ANTHEM ANTHEM ANTHEM ANTHEM ANTHEM ANTHEM CARE Member Subscriber Plan / Payer ( fective 2022-) Name:Ramiro Poole Relation to Subscriber:Self Name:RAMIRO POOLE Payer ID:[id number] ([facility]) Type:O Address: [facility] [id number] [place] [id number] [facility] Care Teams Mine Safety Engineer Relationship Specialty Start Date End Date Shaunna Diego MD [address] [place] [address] PCP - General 04/27/15
--- OUTSIDE RECORDS SUMMARY | 2025-01-29 15:49 | XMS_ITS | Encounter Summary ---
Author Organization [facility] Address [address] [place] [address] Phone Care Team Providers Care Rv Mechanic Name Role Phone Daria Salamanca MD Primary Care Provider [phone] Provider, None Unavailable Unavailable Britton Hopson MD Unavailable Luisa Pitts Primary Care Provider + An Isaacs RN SHIFT MGR, LABOR CREW SUPERVISOR Unavailable + [phone] Edward HUTCHINSON MD, Courtney Unavailable [phone] Rodríguez Keita MD Unavailable Catarina Kline APRN, PROC TECH Unavailable + [phone] Mandie Miner DO Primary Care Provider [phone] Cheri Ozuna APRN, LABOR CREW SUPERVISOR Unavailable Emilia Reynolds MD Unavailable [phone] Reason for Visit * Reason Comments Medication Refill Encounter Details Date Type Department Care Team (Late st Contact Info) Description 04/15/2023 Refill [facility] - Family Medicine [facility] [address] [place] [address] Daria Salamanca MD #2 [place] [address] Medication Refill Social History Tobacco Use Types [...] on file 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 No / Unsure 04/13/2023 1:21 PM CDT documented as of this encounter Miscellaneous Notes * Telephone Encounter - Farrah Joshi RN - 04/16/2023 11:17 AM CDT Last Rx 09/29/22 - no refill hx noted on PDMP Medication failed the protocol, provider to review and approve the medication order if appropriate. Requested Prescriptions Pending Prescriptions Disp Refills ALPRAZolam (XANAX) 0.5 MG Tablet [Pharmacy Med Name: ALPRAZOLAM 0.5MG TABLETS] 30 Tablet 0 Sig: TAKE 1 TABLET THREE TIMES DAILY NEEDED FOR ANXIETY Not Delegated - Benzodiazepines Protocol Failed - 04/15/2023 3:29 PM Failed - This refill cannot be delegated Passed - Visit with relevant provider in past 12 months or upcoming 90 days Recent Visits Date Type Provider Dept 04/13/23 Office Visit Shahbaz Cho MD [facility] 02/16/23 Office Visit Daria Salamanca MD [facility] 01/26/23 Office Visit Luisa Pitts PAC [facility] 01/19/23 Office Visit Daria Salamanca MD [facility] 11/03/22 Office Visit Dashawn Gutierrez APRN, LABOR CREW SUPERVISOR [facility] 09/29/22 Office Visit Daria Salamanca MD [facility] 06/12/22 Office Visit Luisa Pitts, PAC [facility] 06/02/22 Office Visit Daria Salamanca MD [facility] Showing recent visits within past 365 days and meeting all other requirements Future Appointments No visits were found meeting these conditions. Showing future appointments within next 90 days and meeting all other requirements documented in this encounter Plan of Treatment Upcoming Encounters Date Type Department Care Team (Late st Contact Info) Description 02/07/2025 4:45 PM CDT Physical [facility] [address], [address] [place] [address] Mandie Miner, DO 2 [facility]. [address] [place] [address] Iva Ann, PT [place] Discharge Disposition: Discharged to home or Selfcare 02/10/2025 1:15 PM CDT Office Visit [facility] #2 [place] [address] Emilia Reynolds MD #2 [facility] [address] [place] [address] documented as of this encounter Visit Diagnoses Diagnosis Panic disorder Panic disorder without agoraphobia documented in this encounter Additional Health Concerns Infection Onset Date Last Indicated Resolved Time COVID - 19 05/21/2023 05/21/2023 05/31/2023 12:1 6 AM CDT COVID - 19 Confirmed 07/01/2023 07/01/2023 023 12:17 AM REAGENT TENDER COVID - 19 07/01/2023 07/01/2023 07/11/2023 12:1 6 AM CDT Assessment Noted Time PHQ-9 Depression Total Score: 0 04/13/20 1:00 PM CDT documented as of this encounter Care Teams Rv Mechanic Relationship Specialty Start Date End Date Daria Salamanca MD #2 [place] [address] PCP - General Family Medicine 12/31/20 09/05/23 Luisa Pitts PAC #2 [place] [address] PCP - General Physician Payroll And Benefits Manager 09/06/23 01/24/24 Mandie Miner DO 2 [facility]. [address] [place] [address] PCP - General Family Medicine 01/25/24 Provider, None [place] 12/31/20 Britton Hopson MD #2 [facility] [address] [place] [address] Consulting Physician Colon and Rectal Surgery 02/10/23 An Isaacs, RN SHIFT MGR, LABOR CREW SUPERVISOR #2 [facility] [address] [place] [address] Nurse Practitioner Advanced Practice Nurse 09/18/23 08/16/24 Lorena Leon III, MD #2 [place] [address] Consulting Physician Urology 10/06/22 Rodríguez Keita MD #2 [place] [address] Consulting Physician Pulmonary Disease 08/17/23 Catarina Kline APRN, PROC TECH #2 [place] [address] Nurse Practitioner Advanced Practice Nurse 06/30/22 Cheri Ozuna APRN, LABOR CREW SUPERVISOR [address] [place] [address] Nurse Practitioner Advanced Practice Nurse 04/19/24 Emilia Reynolds MD #[address] [address] Consulting Physician Urology 07/20/24 documented as of this encounter
--- OUTSIDE RECORDS SUMMARY | 2025-01-29 15:49 | XMS_ITS | Clinical Summary ---
Author Organization [facility] Address [address] [place] [address] Phone Care Team Providers Care Greaser And Oiler Name Role Phone Shaunna Diego MD Primary Care Provider [phone] Allergies Active Allergy Reactions Criticality Noted Date Comments Amoxicillin Rash,Itching,Swelling Low 04/16/2018 Ampicillin Rash,Itching,Swelling Low 04/16/2018 Penicillins Rash,Itching,Swelling Low 04/16/2018 Medications propranolol (INDERAL) 80 mg tablet Take 80 mg by mouth daily. Active albuterol (VENTOLIN INHALATION) Take by inhalation. Active Social History Tobacco Use Types Packs/Day Years Used Date Smoking Tobacco: Never Smokeless Tobacco: Never Alcohol Use Standard Drinks/Week Comments Yes 0 (1 standard drink = 0.6 oz pur e alcohol) Occasional Feeling Safe Answer Date Recorded Are you in a relationship wi th someone who hurts you emotionally and/or physically? No 09/16/2023 Sex and Gender Information Value Date Recorded Sex Assigned at Not on file Legal Sex Male 10:45 PM CDT Gender Identity Not on file Sexual Orientation Not on file Last Filed Vital Signs Vital Sign Reading Time Taken Comments Blood Pressure 151/77 09/16/2023 7:05 AM TRAVELIFT OPERATOR Pulse 93 09/16/2023 7:05 AM TRAVELIFT OPERATOR Temperature 36.6 C (97.9 F) 09/16/2023 7:05 AM TRAVELIFT OPERATOR Respiratory Rate 20 09/16/2023 7:05 AM TRAVELIFT OPERATOR Oxygen Saturation 98% 09/16/2023 7:15 AM TRAVELIFT OPERATOR Inhaled Oxygen Concentration - - Weight 98.4 kg (217 lb) 09/16/2023 7:05 AM TRAVELIFT OPERATOR Height 182.9 cm (6') 09/16/2023 7:05 AM TRAVELIFT OPERATOR Body Mass Index 29.43 09/16/2023 7:05 AM TRAVELIFT OPERATOR Plan of Treatment Health Maintenance Due Date Last Done Comments HEPATITIS B VACCINES (1 of 3 - 19+ 3-dose series) 2005 INFLUENZA VACCINE (#1) 2024 3, 06/12/2022, 05/27/2021, Additional history exists DTAP/TDAP/TD VACCINES (2 - Td or Tdap) 02/14/2025 02/14/2015 HPV VACCINES Aged Out No longer eligi ble based on patient's age to complete this topic Insurance [id number] [place] [address] Member Subscriber Plan / Payer (Ef fective 2023-Present) Name:Ramiro Poole III Relation to Subscriber:Self Name:Ramiro Poole III Payer ID:[id number] (NAIC) Type:PPO Address: [facility] [id number] [place] [id number] Care Teams Greaser And Oiler Relationship Specialty Start Date End Date Shaunna Diego MD [address] [place] [address] PCP - General Family Practice 04/14/18
--- OUTSIDE RECORDS SUMMARY | 2025-01-29 15:49 | XMS_ITS | Encounter Summary ---
Author Organization [facility] Address [address] [place] [address] Phone Care Team Providers Care Louver Door Assembler Name Role Phone Daria Salamanca MD Primary Care Provider [phone] Provider, None Unavailable Unavailable Britton Hopson MD Unavailable Luisa Pitts Primary Care Provider + An Isaacs APRN, INVESTMENT BANKING ANALYST Unavailable + [phone] Edward HUTCHINSON MD, Courtney Unavailable [phone] Rodríguez Keita MD Unavailable Catarina Kline APRN, PRODUCT ARCHITECT Unavailable + [phone] Mandie Miner DO Primary Care Provider [phone] Cheri Ozuna APRN, INVESTMENT BANKING ANALYST Unavailable Emilia Reynolds MD Unavailable [phone] Encounter Details Date Type Department Care Team (Late st Contact Info) Description 05/11/2023 Transcribe Orders [facility] [address] [place] [address] Edwina Hansen, DPM [address] [place] [address] Social History Tobacco Use Types Packs/Day Years [...] on file 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 No / Unsure 05/11/2023 8:59 AM CDT documented as of this encounter Plan of Treatment Upcoming Encounters Date Type Department Care Team (Late st Contact Info) Description 02/07/2025 4:45 PM CDT [facility] [address] [place] [address] Mandie Miner, DO 2 [facility]. [address] [place] [address] Iva Ann, PT [place] Discharge Disposition: Discharged to home or Selfcare 02/10/2025 1:15 PM CDT Office Visit [facility] #2 [place] [address] Emilia Reynolds MD #2 [facility] [address] [place] [address] documented as of this encounter Goals Goal [...] a change Department associated with goal: [facility] Steps to [...] 19 Confirmed 07/01/2023 07/01/2023 023 12:17 AM CABLE SUPERVISOR COVID - 19 07/01/2023 07/01/2023 07/11/2023 12:1 6 AM CDT Assessment Noted Time PHQ-9 Depression Total Score: 0 04/13/20 1:00 PM CDT documented as of this encounter Care Teams Louver Door Assembler Relationship Specialty Start Date End Date Daria Salamanca MD #2 [place] [address] PCP - General Family Medicine 12/31/20 09/05/23 Luisa Pitts PAC #2 [place] [address] PCP - General Physician Supervisor [employer] 09/06/23 01/24/24 Mandie Miner DO 2 [facility] [address] [place] [address] PCP - General Family Medicine 01/25/24 Provider, None [place] 12/31/20 Britton Hopson MD #[address] [address] Consulting Physician Colon and Rectal Surgery 02/10/23 An Isaacs APRN, INVESTMENT BANKING ANALYST #[address] [address] Nurse Practitioner Advanced Practice Nurse 09/18/23 08/16/24 Lorena Leon III, MD #2 [place] [address] Consulting Physician Urology 10/06/22 Rodríguez Keita MD #2 [place] [address] Consulting Physician Pulmonary Disease 08/17/23 Catarina Kline APRN, PRODUCT ARCHITECT #[address] [place] [address] Nurse Practitioner Advanced Practice Nurse 06/30/22 Cheri Ozuna APRN, INVESTMENT BANKING ANALYST #2 [place] [address] Nurse Practitioner Advanced Practice Nurse 04/19/24 Emilia Reynolds MD #2 [facility], [address] [address] Consulting Physician Urology 07/20/24 documented as of this encounter
--- OUTSIDE RECORDS SUMMARY | 2025-01-29 15:49 | XMS_ITS | Encounter Summary ---
Author Organization [facility] Address [address] [place] [address] Phone Care Team Providers Care Staff Development Educator Name Role Phone Provider, None Unavailable Unavailable Britton Hopson MD Unavailable Edward HUTCHINSON MD, Courtney Unavailable [phone] Rodríguez Keita MD Unavailable Catarina Kline APRN, DRAWER FITTER Unavailable + [phone] Mandie Miner DO Primary Care Provider [phone] Cheri Ozuna APRN, PLASTIC DUPLICATOR Unavailable Emilia Reynolds MD Unavailable [phone] Encounter Details Date Type Department Care Team (Latest Contact Info) Description 01/13/2025 Results Follow-Up [facility] - Family Medicine - [place] [address] [place] [phone] Mandie Miner DO 2 [facility]. [address] [place] [address] URINALYSIS REFLEX IF INDICATED BY ABNORMAL RESULTS, CBC WITH AUTO DIFFERENTIAL Social History Tobacco Use Types Packs/Day Years Used Date Smoking Tobacco: Never Smokeless Tobacco: Never Alcohol Use Standard Drinks/Week Comments Yes 0 (1 standard drink = 0.6 oz pur e alcohol) occassional [facility] Utilities Answer Date Recorded In the [...] often do you attend chur ch or advent services? Never 01/25/2024 Do you belong to any clubs o r organizations such as rastafari groups, unions, fraternal or athletic groups, or [...] Total Score - Questions 1-9 0 10/2024 [facility] - Occupational [...] place to sleep or slept in a intermediate (including now)? No 01/25/2024 Education Answer Date Recorded What is the highest level of school you have completed or the highest degree you have received? 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 Question Answer Date of Assessment Author Patient Health Questionnaire-2 Score 0 01/13/2025 10:39 AM Carmencita Weber MA documented as of this encounter Plan of Treatment Upcoming Encounters Date Type Department Care Team (Late st Contact Info) Description 02/07/2025 4:45 PM THIAGOT Physical Therapy [facility] [address] [place] [phone] Mandie Miner, DO 2 [facility]. [address] [place] [address] Iva Ann, PT [place] Discharge Disposition: Discharged to home or Selfcare 02/10/2025 1:15 PM CDT Office Visit [facility] #2 [place] [phone] Emilia Reynolds MD #2 [facility] [address] [place] [address] documented as of this encounter Goals Goal [...] making a change Department associated with goal: [facility] Steps to achieve goal: [...] Noted Time PHQ-9 Depression Total Score: 0 01/14/20 25 10:39 AM CDT documented as of this encounter Care Teams Staff Development Educator Relationship Specialty Start Date End Date Mandie Miner DO 2 [facility] [address] [place] [address] PCP - General Family Medicine 01/25/24 Provider, None [place] 12/31/20 Britton Hopson MD #2 [facility] [address] [place] [address] Consulting Physician Colon and Rectal Surgery 02/10/23 Lorena Leon III, MD #2 [place] [address] Consulting Physician Urology 10/06/22 Rodríguez Keita MD #2 [place] [address] Consulting Physician Pulmonary Disease 08/17/23 Catarina Klnie APRN, DRAWER FITTER #2 [place] [address] Nurse Practitioner Advanced Practice Nurse 06/30/22 Cheri Ozuna APRN, PLASTIC DUPLICATOR #2 [place] [address] Nurse Practitioner Advanced Practice Nurse 04/19/24 Emilia Reynolds MD [facility] [address] [address] Consulting Physician Urology 07/20/24 documented as of this encounter
--- OUTSIDE RECORDS SUMMARY | 2025-01-29 15:49 | XMS_ITS | Encounter Summary ---
Author Organization [facility] Address [address] [place] [address] Phone Care Team Providers Care Health Care / Medical Job Titles Name Role Phone Daria Salamanca MD Primary Care Provider [phone] Provider, None Unavailable Unavailable Britton Hopson MD Unavailable Luisa Pitts Primary Care Provider + An Isaacs MEAT DEPARTMENT MANAGER, ESCORT SERVICE ATTENDANT Unavailable + [phone] Edward HUTCHINSON MD, Courtney Unavailable [phone] Rodríguez Keita MD Unavailable Catarina Kline APRN, COMPLIANCE TECHNICIAN Unavailable + [phone] Mandie Miner DO Primary Care Provider [phone] Cheri Ozuna APRN, ESCORT SERVICE ATTENDANT Unavailable Emilia Reynolds MD Unavailable [phone] Reason for Visit * Reason Comments Medication Refill Encounter Details Date Type Department Care Team (Late st Contact Info) Description 06/29/2023 Refill [facility] - Family [facility] #2 [place] [address] Daria Salamanca MD #2 [place] [address] Medication Refill Social History Tobacco Use Types [...] on file 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 Yes 07/01/2023 7:57 AM CDT documented as of this encounter Miscellaneous Notes * Telephone Encounter - Enid Bartlett RN - 06/29/2023 9:48 AM CDT Medication failed the protocol, provider to review and approve the medication order if appropriate. Requested Prescriptions Pending Prescriptions Disp Refills Vitamin D3 1000 UNIT Tablet [Pharmacy Med Name: VITAMIN D3 1,000 UNIT TABLETS] 60 Tablet 0 Sig: TAKE 1 TABLET BY MOUTH DAILY FOR 60 DAYS. START AFTER HIGH DOSE THERAPY IS COMPLETED Vitamin Supplements (Adult) Protocol Failed - 06/29/2023 9:00 AM Failed - Active on medication list Passed - Visit with relevant provider in past 12 months or upcoming 90 days Recent Visits Date Type Provider Dept 06/01/23 Office Visit Luisa Pitts PAC [facility] 05/04/23 Office Visit Luisa Pitts PAC [facility] 04/13/23 Office Visit Shahbaz Cho MD [facility] 02/16/23 Office Visit Daria Salamanca MD [facility] 01/26/23 Office Visit Luisa Pitts PAC [facility] [address] 01/19/23 Office Visit Daria Salamanca MD [facility] 11/03/22 Office Visit Dashawn Gutierrez APRN, LUIS [facility] 09/29/22 Office Visit Daria Salamanca MD [facility] Showing recent visits within past 365 days [...] Description 02/07/2025 4:45 PM CDT Physical [facility] [address] [place] [address] Mandie Miner, DO 2 [facility]. [address] [place] [address] Iva Ann, PT [place] Discharge Disposition: Discharged to home or Selfcare 02/10/2025 1:15 PM CDT Office Visit [facility] #2 [place] [address] Emilia Reynolds MD #2 [facility] [address] [place] [address] documented as of this encounter Goals Goal [...] making a change Department associated with goal: [facility] Steps to achieve [...] Last Indicated Resolved Time COVID - 19 Confirmed 07/01/2023 07/01/2023 023 12:17 AM FORECLOSURE FIELD INSPECTOR COVID - 19 07/01/2023 07/01/2023 07/11/2023 12:1 6 AM CDT Assessment Noted Time PHQ-9 Depression Total Score: 0 04/13/20 23 1:00 PM CDT documented as of this encounter Care Teams Health Care / Medical Job Titles Relationship Specialty Start Date End Date Daria Salamanca MD #2 [place] [address] PCP - General Family Medicine 12/31/20 09/05/23 Luisa Pitts PAC #2 [place] [address] PCP - General Physician Pharmacy Associate 09/06/23 01/24/24 Mandie Miner DO [address] [address] PCP - General Family Medicine 01/25/24 Provider, None [place] 12/31/20 Britton Hopson MD #2 [facility] [address] [place] [address] Consulting Physician Colon and Rectal Surgery 02/10/23 An Isaacs, MEAT DEPARTMENT MANAGER, ESCORT SERVICE ATTENDANT #2 [facility] [address] [place] [address] Nurse Practitioner Advanced Practice Nurse 09/18/23 08/16/24 Lorena Leon III, MD #2 [place] [address] Consulting Physician Urology 10/06/22 Rodríguez Keita MD #2 [place] [address] Consulting Physician Pulmonary Disease 08/17/23 Catarina Kline, MEAT DEPARTMENT MANAGER, COMPLIANCE TECHNICIAN #2 [place] [address] Nurse Practitioner Advanced Practice Nurse 06/30/22 Cheri Ozuna MEAT DEPARTMENT MANAGER, ESCORT SERVICE ATTENDANT #[address] [place] [address] Nurse Practitioner Advanced Practice Nurse 04/19/24 Emilia Reynolds MD #2 [facility] [address] [place] [address] Consulting Physician Urology 07/20/24 documented as of this encounter
--- OUTSIDE RECORDS SUMMARY | 2025-01-29 15:49 | XMS_ITS | Referral Summary ---
Author Organization [facility] Address [address] [place] [address] Care Team Providers Care Access Assoc Name Role Phone Shaunna Diego MD Primary Care Provider [phone] Allergies Active Allergy Reactions Criticality Noted Date [...] (1,000 Units total) by mouth daily 04/15/20 23 Active losartan (COZAAR) 100 mg tablet Take 1 tablet (100 mg total) by mouth daily 09/06/20 23 Active ondansetron ODT (ZOFRAN-ODT) 4 mg disintegrating tablet Take 1 tablet (4 mg total) by mouth every 8 (eight) hours as needed 08/31/20 23 Active Active Problems Problem Noted Date Diagnosed [...] Vaccination (12+ Yrs) PURPLE 12/14/2020,11/24/2019 Tdap 02/14/2015 Social History Tobacco Use Types Packs/Day Years Used Date Smoking Tobacco: Never Smokeless Tobacco: Never Alcohol Use Standard Drinks/Week Comments Yes 0 (1 standard drink = 0.6 oz pur e alcohol) rarely Personal Safety Answer Date Recorded Getting School Help Needed Not on file 09/12 Sex and Gender Information Value Date Recorded Sex Assigned at Not on file Legal Sex Male 3:59 AM COLLEGE DEAN Gender Identity Male 02/29/2020 3:45 PM CDT Sexual Orientation Straight 02/29/2020 3: 45 PM CDT 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 Not on file Not on file Last Filed Vital Signs Vital Sign Reading Time Taken Comments Blood Pressure 126/82 09/13/2023 12:09 PM COLLEGE DEAN Pulse 104 09/13/2023 12:09 PM [employer]LEGE DEAN Temperature 37.1 C (98.8 F) 09/13/2023 12:09 PM COLLEGE DEAN Respiratory Rate 18 09/13/2023 12:09 PM COLLEGE DEAN Oxygen Saturation 99% 09/13/2023 12:09 PM COLLEGE DEAN Inhaled Oxygen Concentration - - Weight 108.4 kg (239 lb) 09/13/2023 12:09 PM COLLEGE DEAN Height 182.9 cm (6') 09/13/2023 12:09 PM COLLEGE DEAN Body Mass Index 32.41 09/13/2023 12:09 PM COLLEGE DEAN Plan of Treatment Not on file Insurance [employer] OPEN ACCESS [facility] [employer] [facility] HMO/PPO Address: [address] [place] [address] [facility] [employer] [facility] H[employer]/PPO Address: [address] [place] [address] Care Teams Access Assoc Relationship Specialty Start Date End Date Shaunna Diego MD PCP - General 09/13/17
[2025-01-29 15:56] VITALS: BP 175/89; PULSE 90; RESP 16; TEMP 36.3; O2SAT 100
--- NOTE | 2025-01-29 16:03 | ED.BACK ---
HPI - Back Pain/Injury General Chief Complaint: Back Pain/Injury <Jamsine Mantilla PA-C - Last Filed: 01/29/25 16:06> Stated Complaint: low back pain <Jasmine Mantilla PA-C - Last Filed: 01/29/25 16:06> Time Seen by Provider: 01/29/25 18:30 <Jasmine Mantilla PA-C - Last Filed: 01/29/25 16:06> Focused HPI: 39-year-old male presents to the emergency department for low back pain and tingling to his groin. Patient states at the beginning of January he started exercising again. Afterward exercising which consisted overriding and stretching he began feeling low back pain and tingling in his buttock, scrotum and groin. He and his PCP on 01/20 was prescribed NSAIDs and Flexeril which he has been taking, however symptoms have continued to progress. He denies bowel or bladder incontinence. He does note that he has had some dysuria and pain with ejaculation. He also saw his PCP regarding this and had a UA performed which hematuria. He was referred to Urology and has an upcoming appointment. He is concerning he may not be emptying his bladder. He denies abdominal pain, penile discharge, concern for STDs, fever, use of immunosuppressants or steroids, IV drug use, procedures or surgeries to his back. GENERAL: Well-appearing, well-nourished, and in no acute distress. HEAD: Normocephalic, atraumatic. CHEST: Clear to auscultation. No respiratory distress. BACK: Mild tenderness to the lumbar spine with no overlying skin changes. HEART: Regular rate and rhythm. NEURO: Alert and oriented x3. Strength 5/5 in BLE. Sensation reportedly diminished in the buttock and groin. Patient ambulatory with steady gait Patient screened in triage and initial orders placed. Additional care and disposition to be based upon diagnostic testing and treatment. <Jasmine Mantilla PA-C - Last Filed: 01/29/25 16:06> History of Present Illness HPI Narrative: Agree with HPI. Reports he has been poorly compliant with NSAIDs at home. Does not like taking medication. He did some work on a bathtub is home 2 days ago and has had increased pain since then. Most bothered by some tingling sensation to the left side of his penis and scrotum. Reports it feels like when he is wearing a condom that it is a bit deadened. <Driss Heart MD - Last Filed: 01/29/25 19:34> Related Data Home Medications: Home Medications Medication Instructions Recorded Confirmed Last Taken Type alprazolam 0.5 mg tablet (Xanax) 0.5 mg PO TID PRN Panic Attack(S) 01/21/22 07/01/24 Unknown History sumatriptan succinate 100 mg tablet 100 mg PO DAILY PRN Migraine 01/21/22 07/01/24 Unknown History Headache losartan 50 mg tablet 50 mg PO 04/07/22 07/01/24 Unknown History <Jasmine Mantilla PA-C - Last Filed: 01/29/25 16:06> Allergies/Adverse Reactions: Allergies Allergy/AdvReac Type Severity Reaction Status Date / Time ampicillin Allergy Mild Rash Verified 01/29/25 15:47 Penicillins Allergy Mild Rash Verified 01/29/25 15:47 amoxicillin Allergy Unknown Rash Verified 01/29/25 15:47 vancomycin Allergy Unknown Rash Verified 01/29/25 15:47 <Jasmine Mantilla PA-C - Last Filed: 01/29/25 16:06> Review of Systems Review of Systems: All systems reviewed & are unremarkable except as noted in HPI and below <Driss Heart MD - Last Filed: 01/29/25 19:34> Constitutional: Constitutional: Reports no additional constitutional complaints <Driss Heart MD - Last Filed: 01/29/25 19:34> ENT: Reports system reviewed and no additional complaints, except as documented <Driss Heart MD - Last Filed: 01/29/25 19:34> Cardiovascular: Cardiovascular: Reports no additional cardiovascular complaints <Driss Heart MD - Last Filed: 01/29/25 19:34> Respiratory: Respiratory: Reports no additional respiratory complaints <Driss Heart MD - Last Filed: 01/29/25 19:34> Musculoskeletal: Musculoskeletal: Reports no additional musculoskeletal complaints <Driss Heart MD - Last Filed: 01/29/25 19:34> PMFSH Past Medical History Medical History: Medical History Anxiety Broken arm (~1991) Bursitis of shoulder, right Elevated blood pressure reading in office without diagnosis of hypertension GERD (gastroesophageal reflux disease) Hx of migraines Seasonal asthma <Jasmine Mantilla PA-C - Last Filed: 01/29/25 16:06> Surgical History Surgical History: Surgical History History of surgery on arm fracture of left humerus with pinning Hx of tonsillectomy (~1999) <Jasmine Mantilla PA-C - Last Filed: 01/29/25 16:06> Family History Family History: Family History Mother Hypertension Degenerative disc disease, lumbar Grandparent Malignant neoplasm of prostate Lung cancer Mother Hypertension Grandparent Malignant neoplasm of prostate Family history of lung cancer Other Family history of malignant neoplasm <Jasmine Mantilla PA-C - Last Filed: 01/29/25 16:06> Social History Social History: Social History Social History: caffeine use Smoking status: Never smoker Second hand tobacco smoke exposure: No Alcohol intake: current Substance use: never Substance use type: does not use Living arrangements: with family Occupation/Education: occupation 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 HEAD: Normocephalic, atraumatic. ENT: Mucous membranes moist. Back: No midline tenderness. Mild left paraspinal tenderness your L4. No bruising. Rectal: Normal sharp and soft touch around the rectum with normal rectal tone on digital rectal exam. : Normal sharp and soft touch of the penile shaft and scrotum bilaterally. No lesions. EXTREMITIES: Normal range of motion. No edema. SKIN: Warm, dry, no rash. NEURO: Alert and oriented x3. PSYCH: Normal mood and affect. <Driss Heart MD - Last Filed: 01/29/25 19:34> Course Course Emergency Course: Patient resting comfortably. Discussed case with Dr. Correa with neurosurgery. Recommends Decadron 10 mg x 1 and then discharged with Medrol Dosepak. Patient can continue take his Celebrex and Flexeril safely. We also given famotidine twice a day. Will need follow-up with clinic and get outpatient MRI. Bladder scan with 117 mL of urine and this was 1 hour after he had urinated. <Driss Heart MD - Last Filed: 01/29/25 19:34> Vital Signs Vital signs: Vital Signs Temperature 97.4 F L 01/29/25 15:56 Pulse Rate 90 01/29/25 15:56 Respiratory Rate 16 01/29/25 15:56 Blood Pressure 175/89 H 01/29/25 15:56 Pulse Oximetry 100 01/29/25 15:56 Oxygen Delivery Room Air 01/29/25 15:56 Temperature 97.4 F L 01/29/25 15:56 Pulse Rate 72 01/29/25 18:32 Respiratory Rate 16 01/29/25 18:32 Blood Pressure 128/77 01/29/25 18:32 Pulse Oximetry 100 01/29/25 18:32 Oxygen Delivery Room Air 01/29/25 15:56 <Jasmine Mantilla PA-C - Last Filed: 01/29/25 16:06> Vital Signs Temperature 97.4 F L 01/29/25 15:56 Pulse Rate 90 01/29/25 15:56 Respiratory Rate 16 01/29/25 15:56 Blood Pressure 175/89 H 01/29/25 15:56 Pulse Oximetry 100 01/29/25 15:56 Oxygen Delivery Room Air 01/29/25 15:56 Temperature 97.4 F L 01/29/25 15:56 Pulse Rate 72 01/29/25 18:32 Respiratory Rate 16 01/29/25 18:32 Blood Pressure 128/77 01/29/25 18:32 Pulse Oximetry 100 01/29/25 18:32 Oxygen Delivery Room Air 01/29/25 15:56 <Driss Heart MD - Last Filed: 01/29/25 19:34> MDM - Back Pain/Injury Lab Data Labs: Lab Results 01/29/25 Range/Units 16:35 Urine Color Yellow (Yellow) Urine Appearance Clear (Clear) Urine pH 6.0 (5.0-9.0) Ur Specific [place] 1.015 (1.001-1.035) Urine Protein Negative (Negative) mg/dL Urine Glucose (UA) Negative (Negative) mg/dL Urine Ketones Trace H (Negative) mg/dL Ur Blood (Man) Negative (Negative) Urine Nitrate Negative (Negative) Urine Bilirubin Negative (Negative) Urine Urobilinogen 0.2 (<2.0) mg/dL Leukocyte Esterase Rfl Negative (Negative) FLORIAN/UL <Jasmine Mantilla PA-C - Last Filed: 01/29/25 16:06> Lab Results 01/29/25 Range/Units 16:35 Urine Color Yellow (Yellow) Urine Appearance Clear (Clear) Urine pH 6.0 (5.0-9.0) Ur Specific [place] 1.015 (1.001-1.035) Urine Protein Negative (Negative) mg/dL Urine Glucose (UA) Negative (Negative) mg/dL Urine Ketones Trace H (Negative) mg/dL Ur Blood (Man) Negative (Negative) Urine Nitrate Negative (Negative) Urine Bilirubin Negative (Negative) Urine Urobilinogen 0.2 (<2.0) mg/dL Leukocyte Esterase Rfl Negative (Negative) FLORIAN/UL <Driss Heart MD - Last Filed: 01/29/25 19:34> Discharge Plan Discharge Clinical Impression: Left lumbar radiculopathy <Jasmine Mantilla PA-C - Last Filed: 01/29/25 16:06> Patient Disposition: Home <Jasmine Mantilla PA-C - Last Filed: 01/29/25 16:06> Condition: Stable <Jasmine Mantilla PA-C - Last Filed: 01/29/25 16:06> Instructions: Lumbar Radiculopathy (ED) <Jasmine Mantilla PA-C - Last Filed: 01/29/25 16:06> Additional Instructions: Please return to the emergency department if you develop severe pain that is not controlled by pain medications or if you are unable to walk because of pain or weakness. Return to the emergency department immediately if you develop fevers, loss of bowel or bladder control (dribbling of urine or having accidents you wouldn't normally have), inability to urinate, numbness of your genital or anal area, or weakness/numbness of your legs or arms as these could all be signs of a serious medical emergency. <Jasmine Mantilla PA-C - Last Filed: 01/29/25 16:06> Patient Language: Bulgarian <Jasmine Mantilla PA-C - Last Filed: 01/29/25 16:06> Prescriptions: New methylprednisolone [Medrol (Isaiah)] 4 mg tablets,dose pack See Rx Instructions .ROUTE .COMPLEX Qty: 21 0RF Rx Instructions: for 6 days famotidine 20 mg tablet 20 mg PO BID Qty: 14 0RF No Action sumatriptan succinate 100 mg tablet 100 mg PO DAILY PRN (Reason: Migraine Headache) alprazolam [Xanax] 0.5 mg tablet 0.5 mg PO TID PRN (Reason: Panic Attack(S)) losartan 50 mg tablet 50 mg PO azelastine 137 mcg (0.1 %) aerosol,spray 1 spray intranasal Q12H Qty: 30 0RF Rx Instructions: administer into each nostril meclizine 12.5 mg tablet 12.5 mg PO TID PRN (Reason: dizziness) Qty: 14 0RF <Jasmine Mantilla PA-C - Last Filed: 01/29/25 16:06> Follow-up/Referrals: Nabil Correa MD [Physician] - 1 Week PHYSICIAN NOT ON STAFF,NONSTAFF [Primary Care Provider] - <Jasmine Mantilla PA-C - Last Filed: 01/29/25 16:06>
[2025-01-29 16:42] LABS: Add Urine Microscopic? NO; Appearance Urine Clear (Clear); Bilirubin Urine Negative (Negative); Blood Urine Negative (Negative); Color Urine Yellow (Yellow); Glucose Urine UA Negative (Negative); Ketones Urine Trace mg/dL (Negative); Leukocyte Esterase Ur Negative LEU/UL (Negative); Nitrate Urine Negative (Negative); Protein Urine Negative (Negative); Specific Grav Ur 1.015 (1.001-1.035); Urobilinogen Urine 0.2 mg/dL (<2.0)
[2025-01-29 18:32] VITALS: BP 128/77; PULSE 72; RESP 16; O2SAT 100
--- OUTSIDE RECORDS SUMMARY | 2025-01-29 18:48 | XMS_ITS | Clinical Summary ---
Author Organization [facility] Address [address] [place] [address] Care Team Providers Care Technical Director Name Role Phone Shaunna Diego MD Primary Care Provider Source Comments [facility],non-owned Affiliates and Associated Physician Practices is amultiple site organization consisting of ambulatory clinics and hospital sitesin [place], [place], [place] and [place]. This disclosure is being madepursuant to the Care Everywhere program and may not contain all information available regarding this patient. Last updated 18.[facility] Allergies Active Allergy Reactions Criticality Noted Date [...] Comments Blood Pressure 116/74 09/29/2018 12:48 PM JUTE BAG CLIPPER Pulse 84 09/29/2018 12:48 PM JUTE BAG CLIPPER Temperature 36.7 C (98 F) 09/29/2018 12:48 PM JUTE BAG CLIPPER Respiratory Rate 18 05/07/2018 8:00 AM CDT Oxygen Saturation 95% 09/29/2018 12:48 PM JUTE BAG CLIPPER Inhaled Oxygen Concentration - - Weight 104.3 kg (230 lb) 09/29/2018 12:48 PM JUTE BAG CLIPPER Height 182.9 cm (6') 09/29/2018 12:48 PM JUTE BAG CLIPPER Body Mass Index 31.19 09/29/2018 12:48 PM JUTE BAG CLIPPER Plan of Treatment Health Maintenance Due Date [...] patient's age to complete this topic Insurance [facility] ANTHEM ANTHEM ANTHEM ANTHEM ANTHEM ANTHEM ANTHEM ANTHEM ANTHEM CARE Member Subscriber Plan / Payer ( fective 2022-) Name:Ramiro Poole Relation to Subscriber:Self Name:RAMIRO POOLE Payer ID:[id number] ([facility]) Type:O Address: [facility] [id number] [place] [id number] [facility] Care Teams Technical Director Relationship Specialty Start Date End Date Shaunna Diego MD [address] [place] [address] PCP - General 04/27/15
--- OUTSIDE RECORDS SUMMARY | 2025-01-29 18:48 | XMS_ITS | Encounter Summary ---
Author Organization [facility] Address [address] [place] [address] Phone Care Team Providers Care Leather Worker Name Role Phone Daria Salamanca MD Primary Care Provider [phone] Provider, None Unavailable Unavailable Britton Hopson MD Unavailable Luisa Pitts Primary Care Provider + An Isaacs INDUSTRIAL RELATIONS COUNSELOR, NEUROLOGY TECHNOLOGIST Unavailable + [phone] Edward HUTCHINSON MD, Courtney Unavailable [phone] Rodríguez Keita MD Unavailable Catarina Kline APRN, GAS LINE SERVICER Unavailable + [phone] Mandie Miner DO Primary Care Provider [phone] Cheri Ozuna APRN, NEUROLOGY TECHNOLOGIST Unavailable Emilia Reynolds MD Unavailable [phone] Reason for Visit * Reason Comments Medication Refill Encounter Details Date Type Department Care Team (Late st Contact Info) Description 08/26/2023 Refill [facility] - [facility] [address] [place] [address] Daria Salamanca MD [address] [place] [address] Medication Refill Social History Tobacco Use Types [...] on file 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 Gender Identity Not on file Sexual Orientation [...] Dept 08/03/23 Office Visit Luisa Pitts PAC [facility] [place] 06/01/23 Office Visit Luisa Pitts, CHELI [facility] [place] 05/04/23 Office Visit Luisa Pitts, CHELI [facility] [place] 04/13/23 Office Visit Shahbaz Cho MD [facility] 02/16/23 Office Visit Daria Salamanca MD [facility] [place] 01/26/23 Office Visit Luisa Pitts PAC [facility] 01/19/23 Office Visit Daria Salamanca MD [facility] 11/03/22 Office Visit Dashawn Gutierrez APRN, LUIS [facility] 09/29/22 Office Visit Daria Salamanca MD [facility] 06/12/22 Office Visit Luisa Pitts, CHELI [facility] Showing recent visits within past 730 days and meeting all other requirements Future Appointments No visits were found meeting these conditions. Showing future appointments within next 90 days and meeting all other requirements Passed - No documented Systolic BP > 200 within past 3 months Passed - Number of active Serotonergic medications less than 3 E PRESSER documented in this encounter Plan of Treatment Upcoming Encounters Date Type Department Care Team (Late st Contact Info) Description 02/07/2025 4:45 PM CDT Physical [facility] [address], [address] [place] [address] Mandie Miner, DO 2 [facility] [place] [address] Iva Ann, PT [place] Discharge Disposition: Discharged to home or Selfcare 02/10/2025 1:15 PM CDT Office Visit [facility] #2 [place] [address] Emilia Reynolds MD #2 [facility] [address] [place] [address] documented as of this encounter Goals Goal [...] a change Department associated with goal: [facility] Steps to achieve [...] documented as of this encounter Care Teams Leather Worker Relationship Specialty Start Date End Date Daria Salamanca MD [address] [place] [address] PCP - General Family Medicine 12/31/20 09/05/23 Luisa Pitts PAC [address] [place] [address] PCP - General Physician Pharmacy Graduate Intern 09/06/23 01/24/24 Mandie Miner DO 2 [facility] [address] [place] [address] PCP - General Family Medicine 01/25/24 Provider, None [place] 12/31/20 Britton Hopson MD #[address] [address] Consulting Physician Colon and Rectal Surgery 02/10/23 An Isaacs INDUSTRIAL RELATIONS COUNSELOR, NEUROLOGY TECHNOLOGIST #2 [facility] [address] [place] [address] Nurse Practitioner Advanced Practice Nurse 09/18/23 08/16/24 Lorena Leon III, MD #[address] [place] [address] Consulting Physician Urology 10/06/22 Rodríguez Keita MD [address] [place] [id number] Consulting Physician Pulmonary Disease 08/17/23 Catarina Kline APRN, GAS LINE SERVICER [address] [place] [address] Nurse Practitioner Advanced Practice Nurse 06/30/22 Cheri Ozuna APRN, NEUROLOGY TECHNOLOGIST [address] [place] [address] Nurse Practitioner Advanced Practice Nurse 04/19/24 Emilia Reynolds MD #[address] [address] Consulting Physician Urology 07/20/24 documented as of this encounter
--- OUTSIDE RECORDS SUMMARY | 2025-01-29 18:48 | XMS_ITS | Encounter Summary ---
Author Organization [facility] Address [address] [place] [address] Phone Care Team Providers Care Furnace Utility Operator Name Role Phone Daria Salamanca MD Primary Care Provider [phone] Provider, None Unavailable Unavailable Britton Hopson MD Unavailable Luisa Pitts PAC Primary Care Provider + An Isaacs APRN, RECORDS AND TAPE RECORDINGS ENGINEER Unavailable + [phone] Edward HUTCHINSON MD, Courtney Unavailable [phone] Rodríguez Keita MD Unavailable Catarina Kline APRN, BALANCE ENGINEER Unavailable + [phone] Mandie Miner DO Primary Care Provider [phone] Cheri Ozuna APRN, RECORDS AND TAPE RECORDINGS ENGINEER Unavailable Emilia Reynolds MD Unavailable [phone] Reason for Visit * Reason Comments Medication Refill Encounter Details Date Type Department Care Team (Late Contact Info) Description 02/11/[address] 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. [address] [place] [address] Iva Ann, PT [place] Discharge Disposition: Discharged to home or Selfcare 02/10/2025 1:15 PM CDT Office Visit [facility] #[address] [place] [address] Emilia Reynolds MD #2 [facility] [address] [place] [address] documented as of this encounter Visit Diagnoses Diagnosis Essential hypertension Unspecified essential hypertension documented in this encounter Additional Health Concerns Infection Onset Date Last Indicated Resolved Time COVID - 19 05/21/2023 05/21/2023 05/31/2023 12:1 6 AM CDT COVID - 19 Confirmed 07/01/2023 07/01/2023 023 12:17 AM RN PICU COVID - 19 07/01/2023 07/01/2023 07/11/2023 12:1 6 AM CDT Assessment Noted Time PHQ-9 Depression Total Score: 0 01/25/20 10:00 AM CDT documented as of this encounter Care Teams Furnace Utility Operator Relationship Specialty Start Date End Date Daria Salamanca MD #[address] [place] [address] PCP - General Family Medicine 12/31/20 09/05/23 Luisa Pitts PAC #[address] [place] [address] PCP - General Physician Summer Camp Counselor 09/06/23 01/24/24 Mandie Miner DO 2 [facility] [address] [place] [address] PCP - General Family Medicine 01/25/24 Provider, None [place] 12/31/20 Britton Hopson MD #2 [facility] [address] [place] [address] Consulting Physician Colon and Rectal Surgery 02/10/23 An Isaacs, RV REPAIR TECHNICIAN, RECORDS AND TAPE RECORDINGS ENGINEER [facility] [address] [place] [address] Nurse Practitioner Advanced Practice Nurse 09/18/23 08/16/24 Lorena Leon III, MD #[address] [place] [address] Consulting Physician Urology 10/06/22 Rodríguez Keita MD #[address] [place] [phone] Consulting Physician Pulmonary Disease 08/17/23 Catarina Kline APRN, BALANCE ENGINEER #[address] [place] [address] Nurse Practitioner Advanced Practice Nurse 06/30/22 Cheri Ozuna APRN, RECORDS AND TAPE RECORDINGS ENGINEER #[address] [place] [address] Nurse Practitioner Advanced Practice Nurse 04/19/24 Emilia Reynolds MD #[address] [address] Consulting Physician Urology 07/20/24 documented as of this encounter
--- OUTSIDE RECORDS SUMMARY | 2025-01-29 18:48 | XMS_ITS | Encounter Summary ---
Author Organization [facility] Address [address] [place] [address] Phone Care Team Providers Care Principal Developer Name Role Phone Provider, None Unavailable Unavailable Britton Hopson MD Unavailable Edward HUTCHINSON MD, Courtney Unavailable [phone] Rodríguez Keita MD Unavailable Catarina Kline APRN, MACHINE II TRIMMER Unavailable + [phone] Mandie Miner DO Primary Care Provider [phone] Cheri Ozuna APRN, SUPPORT SERVICE TECH Unavailable Emilia Reynolds MD Unavailable [phone] Reason for Visit * Reason Comments Medication Refill Encounter Details Date Type Department Care Team (Late st Contact Info) Description 12/25/2024 Refill [facility] - [place] [address] [place] [address] Cheri Ozuna APRN, SUPPORT SERVICE TECH [address] [place] [address] Medication Refill Social History Tobacco Use Types Packs/Day Years Used Date Smoking Tobacco: Never Smokeless Tobacco: Never Alcohol Use Standard Drinks/Week Comments Yes 0 (1 standard drink = 0.6 oz pur e alcohol) occassional [facility] Utilities Answer Date Recorded In the past [...] often do you attend chur ch or latter-day services? 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 [address] [place] [address] Iva Ann, PT [place] Discharge Disposition: Discharged to home or Selfcare 02/10/2025 1:15 PM CDT Office Visit [facility] #2 [facility] [place] [address] Emilia Reynolds MD #2 [facility] [address] [place] [address] documented as of this encounter Goals Goal [...] making a change Department associated with goal: [facility] Steps to achieve [...] as of this encounter Care Teams Principal Developer Relationship Specialty Start Date End Date Mandie Miner DO 2 [facility] [address] [place] [address] PCP - General Family Medicine 01/25/24 Provider, None [place] 12/31/20 Britton Hopson MD [address] [place] [address] [address] Consulting Physician Colon and Rectal Surgery 02/10/23 Lorena Leon III, MD #2 [facility] [address] Consulting Physician Urology 10/06/22 Rodríguez Keita MD #2 [place] [phone] Consulting Physician Pulmonary Disease 08/17/23 Catarina Kline APRN, MACHINE II TRIMMER #2 [place] [address] Nurse Practitioner Advanced Practice Nurse 06/30/22 Cheri Ozuna APRN, SUPPORT SERVICE TECH [address] [place] [address] Nurse Practitioner Advanced Practice Nurse 04/19/24 Emilia Reynolds MD #[address] [place] [address] [address] Consulting Physician Urology 07/20/24 documented as of this encounter
--- OUTSIDE RECORDS SUMMARY | 2025-01-29 18:48 | XMS_ITS | Encounter Summary ---
Author Organization [facility] Address [address] [place] [address] Phone Care Team Providers Care Headmaster/Mistress Name Role Phone Daria Salamanca MD Primary Care Provider [phone] Provider, None Unavailable Unavailable Britton Hopson MD Unavailable Luisa Pitts Primary Care Provider + An Isaacs APRN, ASSEMBLER METAL BUILDING Unavailable + [phone] Edward HUTCHINSON MD, Courtney Unavailable [phone] Rodríguez Keita MD Unavailable Catarina Kline APRN, SUB MASTER Unavailable + [phone] Mandie Miner DO Primary Care Provider [phone] Cheri Ozuna APRN, ASSEMBLER METAL BUILDING Unavailable Emilia Reynolds MD Unavailable [phone] Encounter Details Date Type Department Care Team (Late st Contact Info) Description 05/11/2023 Transcribe Orders [facility] [address] [place] [address] Edwina Hansen, DPM [address] [place] [address] Social History Tobacco Use Types [...] on file 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. [address] [place] [address] Iva Ann, PT [place] Discharge Disposition: Discharged to home or Selfcare 02/10/2025 1:15 PM CDT Office Visit [facility] #2 [place] [address] Emilia Reynolds MD #2 [facility] [address] [place] [address] documented as of this encounter Goals Goal [...] 19 Confirmed 07/01/2023 07/01/2023 023 12:17 AM BUILDING ATTENDANT COVID - 19 07/01/2023 07/01/2023 07/11/2023 12:1 6 AM CDT Assessment Noted Time PHQ-9 Depression Total Score: 0 04/13/20 1:00 PM CDT documented as of this encounter Care Teams Headmaster/Mistress Relationship Specialty Start Date End Date Daria Salamanca MD #2 [place] [address] PCP - General Family Medicine 12/31/20 09/05/23 Luisa Pitts PAC #2 [place] [address] PCP - General Physician Software Intern 09/06/23 01/24/24 Mandie Miner DO 2 [facility] [address] [place] [address] PCP - General Family Medicine 01/25/24 Provider, None [place] 12/31/20 Britton Hopson MD #[address] [address] Consulting Physician Colon and Rectal Surgery 02/10/23 An Isaacs APRN, ASSEMBLER METAL BUILDING #[address] [address] Nurse Practitioner Advanced Practice Nurse 09/18/23 08/16/24 Lorena Leon III, MD #2 [place] [address] Consulting Physician Urology 10/06/22 Rodríguez Keita MD #2 [place] [address] Consulting Physician Pulmonary Disease 08/17/23 Catarina Kline APRN, SUB MASTER #2 [place] [address] Nurse Practitioner Advanced Practice Nurse 06/30/22 Cheri Ozuna APRN, ASSEMBLER METAL BUILDING #2 [place] [address] Nurse Practitioner Advanced Practice Nurse 04/19/24 Emilia Reynolds MD #2 [facility], [address] [address] Consulting Physician Urology 07/20/24 documented as of this encounter
--- OUTSIDE RECORDS SUMMARY | 2025-01-29 18:48 | XMS_ITS | Encounter Summary ---
Author Organization [facility] Address [address] [place] [address] Phone Care Team Providers Care Combat Control Name Role Phone Daria Salamanca MD Primary Care Provider [phone] Provider, None Unavailable Unavailable Britton Hopson MD Unavailable Luisa Pitts Primary Care Provider + An Isaacs WEBFED OFFSET PRESS OPERATOR, PHOTOVOLTAIC TESTING TECHNICIAN Unavailable + [phone] Edward HUCTHINSON MD, Courtney Unavailable [phone] Rodríguez Keita MD Unavailable Catarina Kline APRN, ONBOARDING SPECIALIST Unavailable + [phone] Mandie Miner DO Primary Care Provider [phone] Cheri Ozuna APRN, PHOTOVOLTAIC TESTING TECHNICIAN Unavailable Emilia Reynolds MD Unavailable [phone] Reason for Visit * Reason Comments Medication Refill Encounter Details Date Type Department Care Team (Late st Contact Info) Description 06/29/2023 Refill [facility] - [facility] #[address] [place] [address] Daria Salamanca MD #2 [place] [address] Medication Refill Social History Tobacco Use Types [...] on file 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 [address] [place] [address] Iva Ann, PT [place] Discharge Disposition: Discharged to home or Selfcare 02/10/2025 1:15 PM CDT Office Visit [facility] #2 [place] [address] Emilia Reynolds MD #2 [facility] [address] [place] [address] documented as of this encounter Goals Goal [...] making a change Department associated with goal: [facility] Steps to achieve goal: [...] 19 Confirmed 07/01/2023 07/01/2023 023 12:17 AM METALLOGRAPHY TEACHER COVID - 19 07/01/2023 07/01/2023 07/11/2023 12:1 6 AM CDT Assessment Noted Time PHQ-9 Depression Total Score: 0 04/13/20 23 1:00 PM CDT documented as of this encounter Care Teams Combat Control Relationship Specialty Start Date End Date Daria Salamanca MD #2 [place] [address] PCP - General Family Medicine 12/31/20 09/05/23 Luisa Pitts PAC #2 [place] [address] PCP - General Physician Legal Support Specialist 09/06/23 01/24/24 Mandie Miner DO [address] [address] PCP - General Family Medicine 01/25/24 Provider, None [place] 12/31/20 Britton Hopson MD #2 [facility] [address] [place] [address] Consulting Physician Colon and Rectal Surgery 02/10/23 An Isaacs, WEBFED OFFSET PRESS OPERATOR, PHOTOVOLTAIC TESTING TECHNICIAN #2 [facility] [address] [place] [address] Nurse Practitioner Advanced Practice Nurse 09/18/23 08/16/24 Lorena Leon III, MD #2 [place] [address] Consulting Physician Urology 10/06/22 Rodríguez Keita MD #2 [place] [address] Consulting Physician Pulmonary Disease 08/17/23 Catarina Kline, WEBFED OFFSET PRESS OPERATOR, ONBOARDING SPECIALIST #2 [place] [address] Nurse Practitioner Advanced Practice Nurse 06/30/22 Cheri Ozuna WEBFED OFFSET PRESS OPERATOR, PHOTOVOLTAIC TESTING TECHNICIAN #[address] [place] [address] Nurse Practitioner Advanced Practice Nurse 04/19/24 Emilia Reynolds MD #2 [facility] [address] [place] [address] Consulting Physician Urology 07/20/24 documented as of this encounter
--- OUTSIDE RECORDS SUMMARY | 2025-01-29 18:48 | XMS_ITS | Continuity of Care Document ---
Author Organization [facility] Address [address] [place] [address] Phone Care Team Providers Care Client Application Support Specialist Name Role Phone [facility] Unavailable Unavail able Isaiah Anthony Unavailable Unavailable Procedures Procedure Date SV Poly Carb Sph +/- 7.12 To +/- 20 D Ju [facility] Replacement - Vistakon Disp W/BW Soft [facility] Office/outpatient Visit, Est Advance Directives Directive Yes / No Effective Date File Name No Information Encounters Encounter Description Practice Location Reason(s) For Visit Diagnoses Date Provider Providers Copied on Encounter [facility], [address] [place] [address] [address], [place], [place], [id number], [place] tel:[phone] [facility] No Information 9 [facility] . [address] [facility], [facility] [address], [place], [place], [id number], [place]. tel:[phone] Referring Provider: Fabio Vega, [address] [place] [address] [address], [place], [address]. tel:[phone] barba Provider: Isaiah Anthony, [address] [place] [address], [place], [address]. tel:[phone] [facility], [address] [place] [address] [address], [place], [place], [id number], [place] tel:[phone] [facility] No Information Nov-0 1-200 [address] [place]. [address] [facility] , [address], [place], [address], [place]. tel:[phone] Office/outpat ient Visit, [facility], [address], [place], [place], [address], [place] tel:[phone] [facility] No Information Sep-2 5-200 [address] [place]. [address] [facility] [place] , [address], [place], [address], [place]. tel:[phone] Family History Family Member Type Diagnosis Age [...]
--- OUTSIDE RECORDS SUMMARY | 2025-01-29 18:48 | XMS_ITS | Encounter Summary ---
Author Organization [facility] Address [address] [place] [address] Phone Care Team Providers Care Records Analysis Manager Name Role Phone Daria Salamanca MD Primary Care Provider [phone] Provider, None Unavailable Unavailable Britton Hopson MD Unavailable Luisa Pitts Primary Care Provider + An Isaacs CHARGE AUDITOR, SALES DEVELOPMENT REPRESENTATIVE Unavailable + [phone] Edward HUTCHINSON MD, Courtney Unavailable [phone] Rodríguez Keita MD Unavailable Catarina Kline APRN, ANIMAL BOUNTY HUNTER Unavailable + [phone] Mandie Miner DO Primary Care Provider [phone] Cheri Ozuna APRN, SALES DEVELOPMENT REPRESENTATIVE Unavailable Emilia Reynolds MD Unavailable [phone] Reason for Visit * Reason Comments Medication Refill Encounter Details Date Type Department Care Team (Late st Contact Info) Description 06/09/2022 Refill [facility] - Family Medicine [facility] #2 [place] [address] Daria Salamanca MD #2 [place] [address] Medication Refill Social History Tobacco Use Types [...] on file 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 [place] [address] Iva Ann, PT [place] Discharge Disposition: Discharged to home or Selfcare 02/10/2025 1:15 PM CDT Office Visit [facility] #2 [place] [address] Emilia Reynolds MD #2 [facility] [address] [place] [address] documented as of this encounter Visit Diagnoses Not on filedocumented in this encounter Additional Health Concerns Infection Onset Date Last Indicated Resolved Time COVID - 19 05/21/2023 05/21/2023 05/31/2023 12:1 6 AM CDT COVID - 19 Confirmed 07/01/2023 07/01/2023 023 12:17 AM AGRICULTURAL ENGINEERING TECHNICIANS COVID - 19 07/01/2023 07/01/2023 07/11/2023 12:1 6 AM CDT Assessment Noted Time PHQ-9 Depression Total Score: 0 01/25/20 10:00 AM CDT documented as of this encounter Care Teams Records Analysis Manager Relationship Specialty Start Date End Date Daria Salamanca MD #2 [place] [address] PCP - General Family Medicine 12/31/20 09/05/23 Luisa Pitts PAC #2 [place] [address] PCP - General Physician Mica Washer Gluer 09/06/23 01/24/24 Mandie Miner DO 2 [facility] [address] [place] [address] PCP - General Family Medicine 01/25/24 Provider, None [place] 12/31/20 Britton Hopson MD #2 [facility] [address] [place] [address] Consulting Physician Colon and Rectal Surgery 02/10/23 An Isaacs, CHARGE AUDITOR, SALES DEVELOPMENT REPRESENTATIVE #2 [facility], [facility] [address] [place] [address] Nurse Practitioner Advanced Practice Nurse 09/18/23 08/16/24 Lorena Leon III, MD #2 [place] [address] Consulting Physician Urology 10/06/22 Rodríguez Keita MD #2 [place] [address] Consulting Physician Pulmonary Disease 08/17/23 Catarina Kline, CHARGE AUDITOR, ANIMAL BOUNTY HUNTER #2 [place] [address] Nurse Practitioner Advanced Practice Nurse 06/30/22 Cheri Ozuna CHARGE AUDITOR, SALES DEVELOPMENT REPRESENTATIVE #2 [place] [address] Nurse Practitioner Advanced Practice Nurse 04/19/24 Emilia Reynolds MD #2 [facility] [address] [place] [address] Consulting Physician Urology 07/20/24 documented as of this encounter
--- OUTSIDE RECORDS SUMMARY | 2025-01-29 18:48 | XMS_ITS | Encounter Summary ---
Author Organization [facility] Address [address] [place] [address] Phone Care Team Providers Care Pit Crane Operator Name Role Phone Daria Salamanca MD Primary Care Provider [phone] Provider, None Unavailable Unavailable Britton Hopson MD Unavailable Luisa Pitts PAC Primary Care Provider + An Isaacs APRN, ELECTRIC MULE DRIVER Unavailable + [phone] Edward HUTCHINSON MD, Courtney Unavailable +[phone] Rodríguez Keita MD Unavailable Catarina Kline APRN, ELECTRICIAN SECOND Unavailable + [phone] Mandie Miner DO Primary Care Provider [phone] Cheri Ozuna APRN, ELECTRIC MULE DRIVER Unavailable Emilia Reynolds MD Unavailable [phone] Reason for Visit * Reason Comments Medication Refill Encounter Details Date Type Department Care Team (Late st Contact Info) Description 03/16/2022 Refill [facility] #2 [place] [address] Luisa Pitts, CHELI #2 [place] [address] Medication Refill Social History Tobacco Use Types Packs/Day Years Used Date Smoking Tobacco: Never Smokeless Tobacco: Never Alcohol Use Standard Drinks/Week Comments Not Currently 0 (1 standard drink = 0.6 oz pur e alcohol) PHQ-2 Answer Date Recorded Total Score - Questions 1-9 0 10/15 Sex and Gender Information Value Date Recorded Sex Assigned at Not on file 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 [address] [facility], [address] [place] [address] Mandie Miner, DO 2 [facility] [address] [place] [address] Iva Ann, PT [place] Discharge Disposition: Discharged to home or Selfcare 02/10/2025 1:15 PM CDT Office Visit [facility] #2 [place] [address] Emilia Reynolds MD #2 [facility] [address] [place] [address] documented as of this encounter Visit Diagnoses Diagnosis Essential hypertension Unspecified essential hypertension documented in this encounter Additional Health Concerns Infection Onset Date Last Indicated Resolved Time COVID - 19 05/21/2023 05/21/2023 05/31/2023 12:1 6 AM CDT COVID - 19 Confirmed 07/01/2023 07/01/2023 023 12:17 AM LEATHER GOODS SALES REPRESENTATIVE COVID - 19 07/01/2023 07/01/2023 07/11/2023 12:1 6 AM CDT Assessment Noted Time PHQ-9 Depression Total Score: 0 01/25/20 10:00 AM CDT documented as of this encounter Care Teams Pit Crane Operator Relationship Specialty Start Date End Date Daria Salamanca MD #2 [place] [address] PCP - General Family Medicine 12/31/20 09/05/23 Luisa Pitts PAC #2 [place] [address] PCP - General Physician Pediatric Licensed Practical Nurse 09/06/23 01/24/24 Mandie Miner DO 2 [facility] [address] [place] [address] PCP - General Family Medicine 01/25/24 Provider, None [place] 12/31/20 Britton Hopson MD #2 [facility] [address] [place] [address] Consulting Physician Colon and Rectal Surgery 02/10/23 An Isaacs, C++ QUANT DEVELOPER, ELECTRIC MULE DRIVER #2 [facility] [address] [place] [address] Nurse Practitioner Advanced Practice Nurse 09/18/23 08/16/24 Lorena Leon III, MD #2 [place] [address] Consulting Physician Urology 10/06/22 Rodríguez Keita MD #2 [place] [address] Consulting Physician Pulmonary Disease 08/17/23 Catarina Kline APRN, ELECTRICIAN SECOND #2 [place] [address] Nurse Practitioner Advanced Practice Nurse 06/30/22 Cheri Ozuna APRN, ELECTRIC MULE DRIVER #2 [place] [address] Nurse Practitioner Advanced Practice Nurse 04/19/24 Emilia Reynolds MD #[address] [address] Consulting Physician Urology 07/20/24 documented as of this encounter
--- OUTSIDE RECORDS SUMMARY | 2025-01-29 18:48 | XMS_ITS | Encounter Summary ---
Author Organization [facility] Address [address] [place] [address] Phone Care Team Providers Care Programs Assistant Name Role Phone Provider, None Unavailable Unavailable Britton Hopson MD Unavailable Edward HUTCHINSON MD, Courtney Unavailable [phone] Rodríguez Keita MD Unavailable Catarina Kline APRN, SALVAGE REPAIRER Unavailable + [phone] Mandie Miner DO Primary Care Provider [phone] Cheri Ozuna APRN, SAFETY PIN ASSEMBLING MACHINE OPERATOR Unavailable Emilia Reynolds MD Unavailable [phone] Encounter Details Date Type Department Care Team (Latest Contact Info) Description 01/13/2025 Results Follow-Up [facility] - Family Medicine - [place] #2 [place] [address] Mandie Miner DO 2 [facility]. [address] [place] [address] URINALYSIS REFLEX IF INDICATED BY ABNORMAL RESULTS, CBC WITH AUTO DIFFERENTIAL Social History Tobacco Use Types Packs/Day Years Used Date Smoking Tobacco: Never Smokeless Tobacco: Never Alcohol Use Standard Drinks/Week Comments Yes 0 (1 standard drink = 0.6 oz pur e alcohol) occassional [facility] Utilities Answer Date Recorded In the past [...] often do you attend chur ch or sabianism services? Never 01/25/2024 Do you belong to any clubs o r organizations such as congregational groups, unions, fraternal or athletic groups, or [...] Total Score - Questions 1-9 0 10/2024 [facility] - Occupational Stress [...] place to sleep or slept in a longterm (including now)? No 01/25/2024 Education Answer Date Recorded What is the highest level of school you have completed or the highest degree you have received? 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 [address] [place] [address] Iva Ann, PT [place] Discharge Disposition: Discharged to home or Selfcare 02/10/2025 1:15 PM CDT Office Visit [facility] #2 [place] [address] Emilia Reynolds MD #2 [facility] [address] [place] [address] documented as of this encounter Goals Goal [...] making a change Department associated with goal: [facility] Steps to achieve goal: [...] documented as of this encounter Care Teams Programs Assistant Relationship Specialty Start Date End Date Mandie Miner DO 2 [facility] [address] [place] [address] PCP - General Family Medicine 01/25/24 Provider, None [place] 12/31/20 Britton Hopson MD #2 [facility] [address] [place] [address] Consulting Physician Colon and Rectal Surgery 02/10/23 Lorena Leon III, MD #2 [place] [address] Consulting Physician Urology 10/06/22 Rodríguez Keita MD #2 [place] [address] Consulting Physician Pulmonary Disease 08/17/23 Catarina Kline APRN, SALVAGE REPAIRER #2 [place] [address] Nurse Practitioner Advanced Practice Nurse 06/30/22 Cheri Ouzna APRN, SAFETY PIN ASSEMBLING MACHINE OPERATOR #2 [place] [address] Nurse Practitioner Advanced Practice Nurse 04/19/24 [facility]ilia Reynolds MD [facility] [address] [address] Consulting Physician Urology 07/20/24 documented as of this encounter
--- OUTSIDE RECORDS SUMMARY | 2025-01-29 18:49 | XMS_ITS | Encounter Summary ---
Author Organization [facility] Address [address] [place] [address] Phone Care Team Providers Care Video Editing Internship Name Role Phone Provider, None Unavailable Unavailable Britton Hopson MD Unavailable Luisa Pitts PAC Primary Care Provider + An Isaacs APRN, AVIONICS ELECTRONICS TECHNICIAN Unavailable + [phone] Edward HUTCHINSON MD, Courtney Unavailable +[phone] Rodríguez Keita MD Unavailable Catarina Kline APRN, ACCOUNTS RECEIVABLE ACCOUNTANT Unavailable + [phone] Mandie Miner DO Primary Care Provider [phone] Cheri Ozuna APRN, AVIONICS ELECTRONICS TECHNICIAN Unavailable Emilia Reynolds MD Unavailable [phone] Reason for Visit * Reason Comments Medication Refill Encounter Details Date Type Department Care Team (Late st Contact Info) Description 12/28/2023 Refill [facility] #2 [place] [id number] Luisa Pitts, CHELI [address]2 [place] [address] Medication Refill Social History Tobacco Use Types [...] on file 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 Gender Identity Not on file Sexual Orientation Not on file documented as of this encounter Miscellaneous Notes * Telephone Encounter - Farrah Joshi RN - 12/28/2023 2:52 PM CDT Medication(s) [facility]illed and [facility] Medication Refill Standing Order for [...] 09/28/23 Office Visit Dashawn Gutierrez APRN, LUIS [facility] [place] 09/03/23 Office Visit Luisa Pitts PAC [facility] [place] 08/03/23 Office Visit Luisa Pitts PAC [facility] [place] 06/01/23 Office Visit Luisa Pitts PAC [facility] [place] 05/04/23 Office Visit Luisa Pitts PAC [facility] [place] 04/13/23 Office Visit Shahbaz Cho MD [facility] [place] 02/16/23 Office Visit Daria Salamanca MD [facility] 01/26/23 Office Visit Luisa Pitts PAC [facility] [place] 01/19/23 Office Visit Daria Salamanca MD [facility] [place] Showing recent visits within past 365 days [...] Description 02/07/2025 4:45 PM CDT Physical Therapy [facility] Rehab at [facility] [address], [address] [place] [address] Mandie Miner, DO 2 [facility]. [address] [place] [address] Iva Ann, PT [place] Discharge Disposition: Discharged to home or Selfcare 02/10/2025 1:15 PM CDT Office Visit [facility] UROLOGY #2 [place] [address] Emilia Reynolds MD #2 [facility] [address] [place] [address] documented as of this encounter Goals Goal [...] making a change Department associated with goal: [facility] Steps to achieve goal: [...] documented as of this encounter Care Teams Video Editing Internship Relationship Specialty Start Date End Date Luisa Pitts PAC #2 [place] [address] PCP - General Physician Penology Teacher 09/06/23 01/24/24 Mandie Miner DO 2 [facility]. [address] [place] [address] PCP - General Family Medicine 01/25/24 Provider, None [place] 12/31/20 Britton Hopson MD #2 [facility] [address] [place] [address] Consulting Physician Colon and Rectal Surgery 02/10/23 An Isaacs APRN, AVIONICS ELECTRONICS TECHNICIAN #2 [facility] [address] [place] [address] Nurse Practitioner Advanced Practice Nurse 09/18/23 08/16/24 Lorena Leon III, MD #2 [place] [address] Consulting Physician Urology 10/06/22 Rodríguez Keita MD #2 [place] [address] Consulting Physician Pulmonary Disease 08/17/23 Catarina Kline APRN, ACCOUNTS RECEIVABLE ACCOUNTANT #2 [place] [address] Nurse Practitioner Advanced Practice Nurse 06/30/22 Cheri Ozuna APRN, AVIONICS ELECTRONICS TECHNICIAN #2 [place] [address] Nurse Practitioner Advanced Practice Nurse 04/19/24 Emilia Reynolds MD #[address] [address] Consulting Physician Urology 07/20/24 documented as of this encounter
--- OUTSIDE RECORDS SUMMARY | 2025-01-29 18:49 | XMS_ITS | Encounter Summary ---
Author Organization [facility] Address [address] [place] [address] Phone Care Team Providers Care Disc Pad Grinding Machine Feeder Name Role Phone Daria Salamanca MD Primary Care Provider [phone] Provider, None Unavailable Unavailable Britton Hopson MD Unavailable Luisa Pitts Primary Care Provider + An Isaacs [employer]CKLER [employer] LACER, STRIPPER SOFT PLASTIC Unavailable + [phone] Edward HUTCHINSON MD, Courtney Unavailable +[phone] Rodríguez Keita MD Unavailable Catarina Kline APRN, INCLUSION MANAGER Unavailable + [phone] Mandie Miner DO Primary Care Provider [phone] Cheri Ozuna APRN, STRIPPER SOFT PLASTIC Unavailable Emilia Reynolds MD Unavailable [phone] Reason for Visit * Reason Comments Medication Refill Encounter Details Date Type Department Care Team (Late st Contact Info) Description 04/14/2023 Refill [facility] - Family Medicine [facility] #2 [place] [address] Daria Salamanca MD #2 [place] [address] Medication Refill Social History Tobacco Use Types [...] on file 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 [address] [place] [address] Iva Ann, PT [place] Discharge Disposition: Discharged to home or Selfcare 02/10/2025 1:15 PM CDT Office Visit [facility]OLOGY #2 [place] [address] Emilia Reynolds MD #2 [facility] [address] [place] [address] documented as of this encounter Visit Diagnoses Not on filedocumented in this encounter Additional Health Concerns Infection Onset Date Last Indicated Resolved Time COVID - 19 05/21/2023 05/21/2023 05/31/2023 12:1 6 AM CDT COVID - 19 Confirmed 07/01/2023 07/01/2023 023 12:17 AM BAIT DIGGER COVID - 19 07/01/2023 07/01/2023 07/11/2023 12:1 6 AM CDT Assessment Noted Time PHQ-9 Depression Total Score: 0 04/13/20 1:00 PM CDT documented as of this encounter Care Teams Disc Pad Grinding Machine Feeder Relationship Specialty Start Date End Date Daria Salamanca MD #2 [place] [address] PCP - General Family Medicine 12/31/20 09/05/23 Luisa Pitts PAC #2 [place] [address] PCP - General Physician Window Clerk 09/06/23 01/24/24 Mandie Miner DO 2 [facility] J[facility]SA [facility]. [address] [place] [address] PCP - General Family Medicine 01/25/24 Provider, None [place] 12/31/20 Britton Hopson MD #2 [facility] [address] [place] [address] Consulting Physician Colon and Rectal Surgery 02/10/23 An Isaacs APRN, STRIPPER SOFT PLASTIC #2 [facility] [address] [place] [address] Nurse Practitioner Advanced Practice Nurse 09/18/23 08/16/24 Lorena Leon III, MD #2 [place] [address] Consulting Physician Urology 10/06/22 Rodríguez Keita MD #2 [place] [address] Consulting Physician Pulmonary Disease 08/17/23 Catarina Kline APRN, INCLUSION MANAGER #2 [place] [address] Nurse Practitioner Advanced Practice Nurse 06/30/22 Cheri Ozuna APRN, STRIPPER SOFT PLASTIC #2 [place] [address] Nurse Practitioner Advanced Practice Nurse 04/19/24 Emilia Reynolds MD #[address] [address] Consulting Physician Urology 07/20/24 documented as of this encounter
--- OUTSIDE RECORDS SUMMARY | 2025-01-29 18:49 | XMS_ITS | Encounter Summary ---
Author Organization [facility] Address [address] [place] [address] Phone Care Team Providers Care Certified Forklift Operator Name Role Phone Provider, None Unavailable Unavailable Britton Hopson MD Unavailable Edward HUTCHINSON MD, Courtney Unavailable [phone] Rodríguez Keita MD Unavailable Catarina Kline APRN, AUTOMOTIVE TECHNICIAN Unavailable + [phone] Mandie Miner DO Primary Care Provider [phone] Cheri Ozuna APRN, SUPERINTENDENT REFUSE DISPOSAL Unavailable Emilia Reynolds MD Unavailable [phone] Reason for Visit * Reason Comments Medication Refill Encounter Details Date Type Department Care Team (Late st Contact Info) Description 08/22/2024 Refill [facility] - [facility]ology - [place] #2 [place] [address] Cheri Ozuna APRN, SUPERINTENDENT REFUSE DISPOSAL #2 [place] [address] Medication Refill Social History Tobacco Use Types Packs/Day Years Used Date Smoking Tobacco: Never Smokeless Tobacco: Never Alcohol Use Standard Drinks/Week Comments Not Currently 3 (1 standard drink = 0.6 oz pure alcohol) a couple times a week at max, typically a beer or a couple drinks. [facility] Utilities Answer Date Recorded In the [...] often do you attend chur ch or latter day services? 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 E GRADER documented in this encounter Plan of Treatment Upcoming Encounters Date Type Department Care Team (Late st Contact Info) Description 02/07/2025 4:45 PM CDT Physical Therapy [facility] Re[facility] at [facility] [address] [facility], [address] [place] [address] Mandie Miner, DO 2 [facility]. [address] [place] [address] Iva Ann, PT [place] Discharge Disposition: Discharged to home or Selfcare 02/10/2025 1:15 PM CDT Office [facility] GROUP UROLOGY #2 [place] [address] Emilia Reynolds MD #2 [facility] [address] [place] [address] documented as of this encounter Goals Goal [...] change Department associated with goal: [facility] Steps to achieve [...] documented as of this encounter Care Teams Certified Forklift Operator Relationship Specialty Start Date End Date Mandie Miner DO 2 [facility] [address] [place] [address] PCP - General Family Medicine 01/25/24 Provider, None [place] 12/31/20 Britton Hopson MD #[address] [address] Consulting Physician Colon and Rectal Surgery 02/10/23 Lorena Leon III, MD #2 [place] [address] Consulting Physician Urology 10/06/22 Rodríguez Keita MD #2 [place] [address] Consulting Physician Pulmonary Disease 08/17/23 Catarina Kline APRN, AUTOMOTIVE TECHNICIAN #2 [place] [address] Nurse Practitioner Advanced Practice Nurse 06/30/22 Cheri Ozuna APRN, SUPERINTENDENT REFUSE DISPOSAL #2 [place] [address] Nurse Practitioner Advanced Practice Nurse 04/19/24 Emilia Reynolds MD #[address] [address] Consulting Physician Urology 07/20/24 documented as of this encounter
--- OUTSIDE RECORDS SUMMARY | 2025-01-29 18:49 | XMS_ITS | Encounter Summary ---
Author Organization [facility] Address [address] [place] [address] Phone Care Team Providers Care High School Biology Teacher Name Role Phone Daria Salamanca MD Primary Care Provider [phone] Provider, None Unavailable Unavailable Britton Hopson MD Unavailable Luisa Pitts Primary Care Provider + An Isaacs CIRCUIT COURT CLERK, APPRA[employer]ER [employer]ATS [employer] MARINE Unavailable + [phone] Edward HUTCHINSON MD, Courtney Unavailable [phone] Rodríguez Keita MD Unavailable Catarina Kline APRN, AMERICAN HISTORY TEACHER Unavailable + [phone] Mandie Miner DO Primary Care Provider [phone] Cheri Ozuna APRN, APPRAISER BOATS [employer] MARINE Unavailable Emilia Reynolds MD Unavailable [phone] Reason for Visit * Reason Comments Medication Refill Encounter Details Date Type Department Care Team (Late st Contact Info) Description 04/16/[address] 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 Gender Identity Not on file Sexual Orientation [...] Description 02/07/2025 4:45 PM CDT Physical Therapy [facility] Rehab at [facility] [address] [facility], [address] [place] [address] Mandie Miner DO 2 [facility] [address] [place] [address] Iva Ann, PT [place] Discharge Disposition: Discharged to home or Selfcare 02/10/2025 1:15 PM CDT Office Visit [facility] UROLOGY #2 [place] [address] Emilia Reynolds MD #[address] [address] documented as of this encounter Visit Diagnoses Diagnosis Panic disorder Panic disorder without agoraphobia documented in this encounter Additional Health Concerns Infection Onset Date Last Indicated Resolved Time COVID - 19 05/21/2023 05/21/2023 05/31/2023 12:1 6 AM CDT COVID - 19 Confirmed 07/01/2023 07/01/2023 023 12:17 AM MORTGAGE LOAN OFFICER COVID - 19 07/01/2023 07/01/2023 07/11/2023 12:1 6 AM CDT Assessment Noted Time PHQ-9 Depression Total Score: 0 04/13/20 1:00 PM CDT documented as of this encounter Care Teams High School Biology Teacher Relationship Specialty Start Date End Date Daria Salamanca MD #2 [place] [address] PCP - General Family Medicine 12/31/20 09/05/23 Luisa Pitts PAC #2 [place] [address] PCP - General Physician Image Assembler 09/06/23 01/24/24 Mandie Miner DO 2 [facility] [address] [place] [address] PCP - General Family Medicine 01/25/24 Provider, None [place] 12/31/20 Britton Hopson MD #2 [facility] [address] [place] [address] Consulting Physician Colon and Rectal Surgery 02/10/23 An Isaacs, CIRCUIT COURT CLERK, APPRAIS[employer]ATS [employer] MARINE #2 [facility] [address] [place] [address] Nurse Practitioner Advanced Practice Nurse 09/18/23 08/16/24 Lorena Leon III, MD #2 [place] [address] Consulting Physician Urology 10/06/22 Rodríguez Keita MD #2 [place] [address] Consulting Physician Pulmonary Disease 08/17/[address] CLERK, AMERICAN HISTORY TEACHER #2 [place] [address] Nurse Practitioner Advanced Practice Nurse 06/30/22 Cheri Ozuna APRN, AP[employer]AIS[employer]ATS [employer] MARINE #2 [place] [address] Nurse Practitioner Advanced Practice Nurse 04/19/24 Emilia Reynolds MD #2 [facility] [address] [place] [address] Consulting Physician Urology 07/20/24 documented as of this encounter
--- OUTSIDE RECORDS SUMMARY | 2025-01-29 18:49 | XMS_ITS | Encounter Summary ---
Author Organization [facility] Address [address] [place] [address] Phone Care Team Providers Care Financial Supervisor Name Role Phone Daria Salamanca MD Primary Care Provider [phone] Provider, None Unavailable Unavailable Britton Hopson MD Unavailable Luisa Pitts PAC Primary Care Provider + An Isaacs APRN, WOOL HANDLER Unavailable + [phone] Edward HUTCHINSON MD, Courtney Unavailable [phone] Rodríguez Keiat MD Unavailable Catarina Kline APRN, PORTFOLIO ASSISTANT Unavailable + [phone] Mandie Miner DO Primary Care Provider [phone] Cheri Ozuna APRN, WOOL HANDLER Unavailable Emilia Reynolds MD Unavailable [phone] Reason for Visit * Reason Comments Medication Refill Encounter Details Date Type Department Care Team (Late st Contact Info) Description 04/11/2023 Refill [facility] #2 [place] [address] Luisa Pitts, CHELI #2 [place] [address] Medication Refill Social History Tobacco Use Types [...] on file 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 Gender Identity Not on file Sexual Orientation [...] Description 02/07/2025 4:45 PM CDT Physical Therapy [facility] Rehab at [facility] [address] [place] [address] Mandie Miner DO 2 [facility] [address] [place] [address] Iva Ann, PT [place] Discharge Disposition: Discharged to home or Selfcare 02/10/2025 1:15 PM CDT Office Visit [facility] #2 [place] [address] Emilia Reynolds MD #2 [facility] [address] [place] [address] documented as of this encounter Visit Diagnoses Diagnosis Vitamin D deficiency Unspecified vitamin D deficiency documented in this encounter Additional Health Concerns Infection Onset Date Last Indicated Resolved Time COVID - 19 05/21/2023 05/21/2023 05/31/2023 12:1 6 AM CDT COVID - 19 Confirmed 07/01/2023 07/01/2023 023 12:17 AM MOUNT LOADER COVID - 19 07/01/2023 07/01/2023 07/11/2023 12:1 6 AM CDT Assessment Noted Time PHQ-9 Depression Total Score: 0 01/25/20 21 10:00 AM CDT documented as of this encounter Care Teams Financial Supervisor Relationship Specialty Start Date End Date Daria Salamanca MD #2 [place] [address] PCP - General Family Medicine 12/31/20 09/05/23 Luisa Pitts PAC #2 [place] [address] PCP - General Physician Fashion Director Party Plan Sales 09/06/23 01/24/24 Mandie Miner DO 2 [facility] [address] [place] [address] PCP - General Family Medicine 01/25/24 Provider, None [place] 12/31/20 Britton Hopson MD #2 [facility] [address] [place] [address] Consulting Physician Colon and Rectal Surgery 02/10/23 An Isaacs, SALES PROJECT MANAGER, WOOL HANDLER #2 [facility] [address] [place] [address] Nurse Practitioner Advanced Practice Nurse 09/18/23 08/16/24 Lorena Leon III, MD #2 [place] [address] Consulting Physician Urology 10/06/22 Rodríguez Keita MD #2 [place] [address] Consulting Physician Pulmonary Disease 08/17/23 Catarina Kline, SALES PROJECT MANAGER, PORTFOLIO ASSISTANT #2 [place] [address] Nurse Practitioner Advanced Practice Nurse 06/30/22 Cheri Ozuna SALES PROJECT MANAGER, WOOL HANDLER #2 [place] [address] Nurse Practitioner Advanced Practice Nurse 04/19/24 Emilia Reynolds MD #2 [facility] [address] [place] [address] Consulting Physician Urology 07/20/24 documented as of this encounter
--- OUTSIDE RECORDS SUMMARY | 2025-01-29 18:49 | XMS_ITS | Clinical Summary ---
Author Organization [facility] Address [address] [place] [address] Phone Care Team Providers Care Therapy Manager Name Role Phone Provider, None Unavailable Unavailable Britton Hopson MD Unavailable Edward HUTCHINSON MD, Courtney Unavailable [phone] Rodríguez Keita MD Unavailable Catarina Kline APRN, INSECT CONTROL INSPECTOR Unavailable + [phone] Mandie Miner DO Primary Care Provider [phone] Cheri Ozuna APRN, PRODUCTION SANITIZER Unavailable Emilia Reynolds MD Unavailable [phone] Allergies Active Allergy Reactions Criticality Noted Date [...] Type Department Care Team Description 01/23/2025 Telephone [facility] [address] [place] [address] Mandie Miner, DO Advice Only 01/20/2025 3:20 PM CDT Office Visit [facility] - [facility] [address] [place] [address] Mandie Miner, DO Low back pain without sciatica, unspecified back pain laterality, unspecified chronicity (Primary Dx); Hyperlipidemia, unspecified hyperlipidemia type; NILAY (generalized anxiety disorder) Discharge Disposition: Discharged to home or Selfcare 01/20/2025 Telephone [facility] [address] [place] [address] Mandie Miner, DO Follow-up 01/20/2025 Travel 01/20/2025 Nurse Triage [facility] [address] [place] [address] Mandie Miner, DO Back Pain 01/13/2025 10:40 AM CDT Office Visit [facility] [address] [place] [address] Mandie Miner, DO Left testicular pain (Primary Dx); Dysuria; Hypertension, unspecified type; LEWIS (obstructive sleep apnea) Discharge Disposition: Discharged to home or Selfcare 01/13/2025 Results Follow-Up [facility] [address] [place] [address] Mandie Miner, DO URINALYSIS REFLEX IF INDICATED BY ABNORMAL RESULTS, CBC WITH AUTO DIFFERENTIAL 01/13/2025 Travel 01/05/2025 3:45 PM CDT Office Visit [facility] [address] [place] [address] Mamadou Saavedra MD Cystitis (Primary Dx) Discharge Disposition: Discharged to home or Selfcare 01/05/2025 Travel 01/04/2025 Refill [facility] [address] [place] [address] Mandie Miner, DO Medication Refill 12/30/2024 Results Follow-Up [facility] #2 [place] [address] Emilia Reynolds MD PSA DIAGNOSTIC,TOTAL 12/30/2024 Travel 12/25/2024 Refill [facility] [address] [place] [address] Luisa Pitts, PAC Medication Refill 12/25/2024 Refill [facility] - [facility] - [place] [address] [place] [address] Cheri Ozuna APRN, PRODUCTION SANITIZER Medication Refill 12/02/2024 2:45 PM CDT Office Visit [facility] [address] [place] [address] Khoi Mcbride MD Zaid, Uwais Bin, MD Left inguinal hernia (Primary Dx); Left testicular pain; Family history of prostate cancer Discharge Disposition: Discharged to home or Selfcare 12/02/2024 Travel 11/10/2024 Results [facility] [place] [address] Trent Ritter MD Pathology Surgical 11/04/2024 10:24 AM PERSONNEL MONITOR Anesthesia Event [facility] Periop [address] [place] [address] Diaz Knowles APRN, KEG VARNISHER 11/04/2024 9:00 AM PERSONNEL MONITOR - 11/04/2024 9:30 AM PERSONNEL MONITOR [facility] [address] [place] [address] Trent Ritter MD EGD-distal antral biopsy-GE junction biopsy-esophageal biopsy at 37cm r/o EOE-esophageal biopsy at 34cm r/o EOE 11/04/2024 8:15 AM PERSONNEL MONITOR Ancillary Procedure [facility] Lab Main [address] [place] [address] Trent Ritter MD 11/04/2024 8:05 AM PERSONNEL MONITOR - 11/04/2024 11:38 AM PERSONNEL MONITOR Hospital Encounter [facility] Lab Preop/Pacu II [address] [place] [address] Trent Ritter MD Esophageal dysphagia Discharge Disposition: Discharged to home or Selfcare 11/04/2024 Travel 11/02/2024 MyChart RX Renewal [facility] [address] [place] [address] Luisa Pitts, CHELI Medication Renewal Reviewed from Last 3 Months Immunizations Immunization Administration Dates Next Due Covid-19, Mrna, Lnp-s, Pf, 3 0 Mcg/0.3 Ml Dose (YouGoDo) 12/14/2020,11/24/2019 Influenza Vaccine, MDCK,quad rivalent, pres free [...] = 0.6 oz pur e alcohol) occassional [facility] Utilities Answer Date Recorded In the past 12 months has e [employer], gas, oil, or water [employer] threatened to shut off services in your home? Patient declined 01/20/2025 Social Connection and Isolation Panel [NHANES] A nswer Date Recorded In a typical week, how many times do you talk on the phone with family, friends, or neighbors? Patient declined 01/20/2025 How often do you get togethe r with friends or relatives? Patient declined 01/20/2025 How often do you attend druze or latter day serv ices? Patient declined 01/20/2025 Do you belong to any clubs o r organizations such as druze groups, unions, fraternal or athletic groups, or [...] Total Score - Questions 1-9 0 10/2024 [facility] - Occupational [...] to sleep or slept in a senior care (including now)? No 01/25/2024 Housing Stability Vital Sign Answer Malick e Recorded In the last 12 months, was t here a time when you were not able to pay the mortgage or rent on time? Patient declined 01/21/20 Number of Times Moved in the Last Year Not on fi le 01/20/2025 At any time in the past 12 m [facility], were you homeless or living in a senior care (including now)? Patient declined 01/20/2025 Education Answer Date Recorded What is the highest level of school you have completed or the highest degree you have received? Associate degree: academic program 01/19/2023 Sexually Active Control Partners Comments Yes Female Sex and Gender Information Value Date Recorded Sex Assigned at Not on file Legal Sex Male 3:29 PM PERSONNEL MONITOR Gender Identity Not on file Sexual Orientation [...] 4:45 PM CDT Physical Therapy [facility] [address] [place] [address] Mandie Miner, DO 2 [facility] [address] [place] [address] Iva Ann, PT [place] Discharge Disposition: Discharged to home or Selfcare 02/10/2025 1:15 PM CDT Office Visit [facility] [address] [place] [address] Emilia Reynolds MD [address]2 [facility] [place] [facility] [place] [address] Health Maintenance Due Date Last Done Comments [...] making a change Department associated with goal: [facility] Steps to achieve [...] cancer PATHOLOGY SURGICAL Routine 11/04/2024 10:34 AM PERSONNEL MONITOR [place] ESOPHAGOGASTRODUODENOSCOP Y TRANSORAL DIAGNOSTIC 11/04/2024 10:24 AM PERSONNEL MONITOR EGD-distal antral biopsy-GE junction biopsy-esophage al biopsy at 37cm r/o EOE-esophageal biopsy at 34cm r/o EOE Special Needs Dx reflux [place] EGD FLEXIBLE TRANSNASAL D X W/COLLJ SPEC BR/WA 11/04/2024 10:24 AM PERSONNEL MONITOR EGD-distal antral biopsy-GE junction biopsy-esophage al biopsy at 37cm r/o EOE-esophageal biopsy at 34cm r/o EOE Special Needs Dx reflux GI LAB IMAGING - EGD Routine 11/04/2024 8:11 AM PERSONNEL MONITOR HEPATITIS C ANTIBODY Routine 02/02/2023 7:34 AM CDT Need for hepatitis C screening test from Last 3 Months or Most Recently Relevant to Health Maintenance Results * URINALYSIS REFLEX IF INDICATED BY ABNORMAL RESULTS (01/13/2025 11:52 AM CDT) SPECIFIC GRAVITY 1.015 1.003 - 1.030 01/13/2025 12:23 PM CDT [facility] URINE PH 6.0 5.0 - 9.0 01/13/2025 12:23 PM CDT [facility] WBC ESTERASE Negative Negative 01/13/2025 12:23 PM CDT [facility] NITRITE Negative Negative 01/13/2025 12:23 PM CDT [facility] PROTEIN, RANDOM URINE Negative Negative 01/13/2025 12:23 PM CDT [facility] URINE GLUCOSE, QUAL Negative Negative 01/13/2025 12:23 PM CDT [facility] URINE KETONES Negative Negative 01/13/2025 12:23 PM CDT [facility] UROBILINOGEN Normal Normal mg/dL 01/13/2025 12:23 PM CDT [facility] URINE BLOOD Negative Negative lee/ul 01/13/2025 12:23 PM CDT [facility] URINALYSIS COLOR Yellow 01/14/20 12:23 PM CDT [facility] URINALYSIS CLARITY Clear 01/13/2025 12:23 PM CDT [facility] Urine URINE SPECIMEN OBTAINED BY CLEAN CATCH PROCEDURE / Unknown Non-Phlebotomy Collection / Unknown 01/13/2025 11:52 AM CDT 01/13/2025 12:13 PM CDT Mandie Miner DO URINE ORDERABLES Final Result [facility] [address] [place] [address] * CBC WITH AUTO DIFFERENTIAL (01/13/2025 11:52 AM CDT) WBC 6.12 4.00 - 12.00 10(3)/mcL 01/13/2025 12:18 PM CDT [facility] RBC 4.80 4.40 - 5.80 10(6)/mcL 01/13/2025 12:18 PM CDT [facility] HEMOGLOBIN (HGB) 15.0 13.0 - 16.5 g/dL 01/13/2025 12:18 PM CDT [facility] HEMATOCRIT (HCT) 43.1 38.0 - 50.0 % 01/13/2025 12:18 PM CDT [facility] MCV 89.8 82.0 - 96.0 fL 01/13/2025 12:18 PM CDT [facility] MCH 31.3 26.0 - 32.0 pg 01/13/2025 12:18 PM CDT [facility] MCHC 34.8 31.0 - 36.0 g/dL 01/13/2025 12:18 PM CDT [facility] PLATELET COUNT 240 140 - 440 10(3)/mcL 01/13/2025 12:18 PM CDT [facility] RDW 12.1 11.8 - 15.5 % 01/13/2025 12:18 PM CDT [facility] MPV 9.8 8.0 - 12.6 fL 01/13/2025 12:18 PM CDT [facility] NEUTROPHILS 49.8 40.0 - 68.0 % 01/13/2025 12:18 PM CDT [facility] LYMPHOCYTES 41.2 19.0 - 49.0 % 01/13/2025 12:18 PM CDT [facility] MONOCYTES 7.8 3.0 - 13.0 % 01/13/2025 12:18 PM CDT [facility] EOSINOPHILS 1.0 0.0 - 8.0 % 01/13/2025 12:18 PM CDT [facility] BASOPHILS 0.2 0.0 - 1.0 % 01/13/2025 12:18 PM CDT [facility] ABSOLUTE NEUTROPHILS 3.05 1.40 - 5.30 10(3)/mcL 01/13/2025 12:18 PM CDT [facility] ABSOLUTE LYMPHOCYTES 2.52 0.90 - 3.30 10(3)/mcL 01/13/2025 12:18 PM CDT [facility] ABSOLUTE MONOCYTES 0.48 0.10 - 0.90 10(3)/mcL 01/13/2025 12:18 PM CDT [facility] ABSOLUTE EOSINOPHIL 0.06 0.00 - 0.50 10(3)/mcL 01/13/2025 12:18 PM CDT [facility] ABSOLUTE BASOPHILS 0.01 0.00 - 0.10 10(3)/mcL 01/13/2025 12:18 PM CDT [facility] NRBC PER 100 WBC 0 01/14/20 12:18 PM CDT [facility] Blood Venipuncture / Unknown 01/13/2025 11:52 AM CDT 01/13/2025 12:15 PM CDT us Mandie Miner DO HEMATOLOGY ORDERABLES Final R esult [facility] [address] [place] [address] * (ABNORMAL) LIPID PANEL (01/13/2025 11:52 AM CDT) CHOLESTEROL 183 <200 mg/dL 01/13/2025 1:37 PM CDT [facility] TRIGLYCERIDES 224(H) <150 mg/dL 01/13/2025 1:37 PM CDT [facility] HDL CHOLESTEROL 26(L) >40 mg/dL 1:37 PM CDT [facility] LDL 112 <130 mg/dL 01/13/2025 1:37 PM CDT [facility] VLDL 45 10 - 50 mg/dL 01/13/2025 1:37 PM CDT [facility] CHOL/HDL RATIO 7.0(H) 0.0 - 4.4 01/13/2025 1:37 PM CDT [facility] NON-HDL CHOLESTEROL 157(H) <130 mg/dL 01/13/2025 1:37 PM CDT [facility] IS THE PATIENT REQUIRED TO BE FASTING? No 01/13/2025 1:37 PM CDT [facility] Blood Venipuncture / Unknown 01/13/2025 11:52 AM CDT 01/13/2025 12:15 PM CDT us Mandie Miner DO CHEMISTRY ORDERABLES Final Re sult [facility] [address] [place] [address] * (ABNORMAL) CMP (COMPREHENSIVE METABOLIC PANEL) (01/13/2025 11:52 AM CDT) SODIUM 141 136 - 145 mmol/L 01/13/2025 1:37 PM CDT [facility] POTASSIUM 4.2 3.5 - 5.1 mmol/L 01/13/2025 1:37 PM CDT [facility] CHLORIDE 107 98 - 107 mmol/L 01/13/2025 1:37 PM CDT [facility] CO2, VENOUS 28 22 - 30 mmol/L 01/13/2025 1:37 PM CDT [facility] ANION GAP 10.2 <18.0 mmol/L 01/13/2025 1:37 PM CDT [facility] GLUCOSE 100(H) 70 - 99 mg/dL 01/13/2025 1:37 PM CDT [facility] BUN 13 9 - 21 mg/dL 01/13/2025 1:37 PM CDT [facility] CREATININE, BLOOD 1.45(H) 0.70 - 1.30 mg/dL 01/13/2025 1:37 PM CDT [facility] BUN/CREATININE RATIO 9(L) 12 - 20 ratio 01/13/2025 1:37 PM CDT [facility] TOTAL PROTEIN 7.5 6.0 - 8.0 g/dL 01/13/2025 1:37 PM CDT [facility] ALBUMIN 4.5 3.5 - 5.0 g/dL 01/13/2025 1:37 PM CDT [facility] A/G RATIO 1.5 1.0 - 2.2 01/13/2025 1:37 PM CDT [facility] CALCIUM 9.2 8.7 - 10.5 mg/dL 01/13/2025 1:37 PM CDT [facility] T BILI 0.6 0.2 - 1.2 mg/dL 01/13/2025 1:37 PM CDT [facility] SGOT (AST) 37 <43 U/L 01/13/2025 1:37 PM CDT [facility] SGPT (ALT) 34 <56 U/L 01/13/2025 1:37 PM CDT [facility] ALKALINE PHOSPHATASE 42 40 - 150 U/L 01/13/2025 1:37 PM CDT [facility] IS THE PATIENT REQUIRED TO BE FASTING? No 01/13/2025 1:37 PM CDT [facility] GFR, ESTIMATED >60 >=60 01/13/2025 1:37 PM CDT [facility] Comment: Creatinine Clearance is the preferred criteria for selecting drug dose adjustments in renally impaired patients. The GFR is provided as additional pertinent clinical information. GFR is reported in mL/min/1.73 sq m. Calculation based on the Chronic Kidney Disease Epidemiology Collaboration (CKD- EPI) equation refit without adjustment for race. GFR, EST. >60 >=60 025 1:37 PM CDT [facility] GFR, EST. NONAFRICAN 54(L) >=60 01/13/2025 1:37 PM CDT [facility] Blood Venipuncture / Unknown 01/13/2025 11:52 AM CDT 01/13/2025 12:15 PM CDT Narrative Authorizing Provider [id number]|2025-01-29 18:49:00|2025-01-29 18:48:00|XMS_ITS|REGINA THRASHER|External Medical Summaries|[id number]|" Clinical Summary Created on: January 29, 2025 Ramiro Poole : 1985 Sex: Male Author Organization [facility] Address [address] [place] [address] Care Team Providers Care Therapy Manager Name Role Phone Shaunna Diego MD Primary Care Provider [phone] Allergies Active Allergy Reactions Criticality Noted Date [...] on file Legal Sex Male 3:59 AM PERSONNEL MONITOR Gender Identity Male 02/29/2020 3:45 PM CDT Sexual Orientation Straight 02/29/2020 3: 45 PM CDT 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 Not on file Not on file Obstetrics History Last Filed Vital Signs Vital Sign Reading Time Taken Comments Blood Pressure 126/82 09/13/2023 12:09 PM PERSONNEL MONITOR Pulse 104 09/13/2023 12:09 PM PERSONNEL MONITOR Temperature 37.1 C (98.8 F) 09/13/2023 12:09 PM PERSONNEL MONITOR Respiratory Rate 18 09/13/2023 12:09 PM PERSONNEL MONITOR Oxygen Saturation 99% 09/13/2023 12:09 PM PERSONNEL MONITOR Inhaled Oxygen Concentration - - Weight 108.4 kg (239 lb) 09/13/2023 12:09 PM PERSONNEL MONITOR Height 182.9 cm (6') 09/13/2023 12:09 PM PERSONNEL MONITOR Body Mass Index 32.41 09/13/2023 12:09 PM PERSONNEL MONITOR Plan of Treatment Health Maintenance Due Date [...] patient's age to complete this topic Insurance [employer] [facility]AN Care Teams Therapy Manager Relationship Specialty Start Date End Date Shaunna iDego MD PCP - General 09/13/17 "
--- OUTSIDE RECORDS SUMMARY | 2025-01-29 18:49 | XMS_ITS | Encounter Summary ---
Author Organization [facility] Address [address] [place] [address] Phone Care Team Providers Care Streetcar Starter Name Role Phone Provider, None Unavailable Unavailable Britton Hopson MD Unavailable Luisa Pitts PAC Primary Care Provider + An Isaacs APRN, MANAGER PROPERTY Unavailable + [phone] Edward HUTCHINSON MD, Courtney Unavailable [phone] Rodríguez Keita MD Unavailable Catarina Kline APRN, CERAMIC TILE INSTALLATION HELPER Unavailable + [phone] Mandie Miner DO Primary Care Provider [phone] Cheri Ozuna APRN, MANAGER PROPERTY Unavailable Emilia Reynolds MD Unavailable [phone] Reason for Visit * Reason Comments Medication Refill Encounter Details Date Type Department Care Team (Late st Contact Info) Description 01/15/2024 [facility]ill [facility] [address] [place] [id number] Luisa Pitts, CHELI [address] [place] [address] Medication Refill Social History Tobacco Use Types [...] on file Legal Sex Male 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 Gender Identity Not on file Sexual Orientation Not on file documented as of this encounter Miscellaneous Notes * Telephone Encounter - Laurie Wagner CMA - 01/18/2024 3:03 PM CDT All Patient Appointments Provider Department Dept Phone 01/25/2024 9:40 AM Mandie Miner [facility] Medical [facility] - Family Medicine - [place] [phone] 03/14/2024 11:30 AM Catarina Kline [facility] - Neurology - [place] [phone] * Telephone Encounter - Luisa Pitts PAC - 01/18/2024 1:22 PM CDT I believe patient was planning to establish care with Dr. Mcbride since daria left Not sure if this is still [...] Dept 09/28/23 Office Visit Dashawn Gutierrez APRN, MANAGER PROPERTY [facility] [place] 09/03/23 Office Visit Luisa Pitts, PAC [facility] [place] 08/03/23 Office Visit Luisa Pitts, PAC [facility] [place] 06/01/23 Office Visit Luisa Pitts, PAC [facility] [place] 05/04/23 Office Visit Luisa Pitts, PAC [facility] [place] 04/13/23 Office Visit Shahbaz Cho MD [facility] [place] 02/16/23 Office Visit Daria Salamanca MD [facility] [place] 01/26/23 Office Visit Luisa Pitts, PAC [facility] [place] 01/19/23 Office [facility] Showing recent visits within past 365 days and meeting all other requirements Future Appointments No visits were found meeting these conditions. Showing future appointments within next 90 days and meeting all other requirements documented in this encounter Plan of Treatment Upcoming Encounters Date Type Department Care Team (Late st Contact Info) Description 02/07/2025 4:45 PM CDT Physical Therapy [facility] [address] [facility] [place] [address] Mandie Miner, DO 2 [facility] [address] [place] [address] Iva Ann, PT [place] Discharge Disposition: Discharged to home or Selfcare 02/10/2025 1:15 PM CDT Office Visit [facility] #[address] [place] [address] Emilia Reynolds MD [address] [address] documented as of this encounter Goals Goal [...] change Department associated with goal: [facility] Steps to achieve goal: [...] documented as of this encounter Care Teams Streetcar Starter Relationship Specialty Start Date End Date Luisa Pitts PAC [address] [place] [address] PCP - General Physician Admissions Manager Rn 09/06/23 01/24/24 Mandie Miner DO 2 [facility] [address] [place] [address] PCP - General Family Medicine 01/25/24 Provider, None [place] 12/31/20 Britton Hopson MD #2 [facility] [address] [place] [address] Consulting Physician Colon and Rectal Surgery 02/10/23 An Isaacs, AIR GRINDER, MANAGER PROPERTY #2 [facility] [address] [place] [address] Nurse Practitioner Advanced Practice Nurse 09/18/23 08/16/24 Lorena Leon III, MD [address] [place] [address] Consulting Physician Urology 10/06/22 Rodríguez Keita MD [address] [place] [address] Consulting Physician Pulmonary Disease 08/17/23 Catarina Kline APRN, CERAMIC TILE INSTALLATION HELPER [address] [place] [address] Nurse Practitioner Advanced Practice Nurse 06/30/22 Cheri Ozuna APRN, MANAGER PROPERTY [address] [place] [address] Nurse Practitioner Advanced Practice Nurse 04/19/24 Emilia Reynolds MD #2 [facility] [address] [place] [address] Consulting Physician Urology 07/20/24 documented as of this encounter
--- OUTSIDE RECORDS SUMMARY | 2025-01-29 18:49 | XMS_ITS | Encounter Summary ---
Author Organization [facility] Address [address] [place] [address] Phone Care Team Providers Care Agricultural And Forestry Supervisor Name Role Phone Daria Salamanca MD Primary Care Provider [phone] Provider, None Unavailable Unavailable Britton Hopson MD Unavailable Luisa Pitts Primary Care Provider + An Isaacs ASSURANCE ENGINEER, YARD RIGGER Unavailable + [phone] Edward HUTCHINSON MD, Courtney Unavailable [phone] Rodríguez Keita MD Unavailable Catarina Kline APRN, ANALYST FOOD AND BEVERAGE Unavailable + [phone] Mandie Miner DO Primary Care Provider [phone] Cheri Ozuna APRN, YARD RIGGER Unavailable Emilia Reynolds MD Unavailable [phone] Reason for Visit * Reason Comments Medication Refill Encounter Details Date Type Department Care Team (Late st Contact Info) Description 04/15/2023 Refill [facility] - Family Medicine [facility] [address] [place] [address] Daria Salamanca MD [address] [place] [address] Medication Refill Social History Tobacco Use Types [...] on file 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 Showing future appointments within next 90 days and meeting all other requirements documented in this encounter Plan of Treatment Upcoming Encounters Date Type Department Care Team (Late st Contact Info) Description 02/07/2025 4:45 PM CDT Physical [facility] [address], [address] [place] [address] Mandie Miner, DO 2 [facility]. [address] [place] [address] Iva Ann, PT [place] Discharge Disposition: Discharged to home or Selfcare 02/10/2025 1:15 PM CDT Office Visit [facility] #[address] [place] [address] Emilia Reynolds MD #2 [facility] [address] [place] [address] documented as of this encounter Visit Diagnoses Diagnosis Panic disorder Panic disorder without agoraphobia documented in this encounter Additional Health Concerns Infection Onset Date Last Indicated Resolved Time COVID - 19 05/21/2023 05/21/2023 05/31/2023 12:1 6 AM CDT COVID - 19 Confirmed 07/01/2023 07/01/2023 023 12:17 AM PAPER SORTER AND COUNTER COVID - 19 07/01/2023 07/01/2023 07/11/2023 12:1 6 AM CDT Assessment Noted Time PHQ-9 Depression Total Score: 0 04/13/20 1:00 PM CDT documented as of this encounter Care Teams Agricultural And Forestry Supervisor Relationship Specialty Start Date End Date Daria Salamanca MD [address] [place] [address] PCP - General Family Medicine 12/31/20 09/05/23 Luisa Pitts PAC [address] [place] [address] PCP - General Physician Deep Well Contractor 09/06/23 01/24/24 Mandie Miner DO 2 [facility]. [address] [place] [address] PCP - General Family Medicine 01/25/24 Provider, None [place] 12/31/20 Britton Hopson MD #2 [facility] [address] [place] [address] Consulting Physician Colon and Rectal Surgery 02/10/23 An Isaacs, ASSURANCE ENGINEER, YARD RIGGER #2 [facility] [address] [place] [address] Nurse Practitioner Advanced Practice Nurse 09/18/23 08/16/24 Lorena Leon III, MD #[address] [place] [address] Consulting Physician Urology 10/06/22 Rodríguez Keita MD #2 [place] [id number] Consulting Physician Pulmonary Disease 08/17/23 Catarina Kline APRN, ANALYST FOOD AND BEVERAGE [address] [place] [address] Nurse Practitioner Advanced Practice Nurse 06/30/22 Cheri Ozuna APRN, YARD RIGGER [address] [place] [address] Nurse Practitioner Advanced Practice Nurse 04/19/24 Emilia Reynolds MD #[address] [address] Consulting Physician Urology 07/20/24 documented as of this encounter
--- OUTSIDE RECORDS SUMMARY | 2025-01-29 18:49 | XMS_ITS | Encounter Summary ---
Author Organization [facility] Address [address] [place] [address] Phone Care Team Providers Care Bench Boring Machine Operator Name Role Phone Provider, None Unavailable Unavailable Britton Hopson MD Unavailable An Isaacs APRN, TAKE AWAY WORKER Unavailable + [phone] Edward HUTCHINSON MD, Courtney Unavailable [phone] Rodríguez Keita MD Unavailable Catarina Kline APRN, PROCESS SAFETY MANAGER Unavailable + [phone] Mandie Miner DO Primary Care Provider [phone] Cheri Ozuna APRN, TAKE AWAY WORKER Unavailable Emilia Reynolds MD Unavailable [phone] Reason for Referral * PT/OT/ST (Routine) - Closed Specialty Diagnoses / Procedures Referred By Contac t Referred To Contact Physical Therapy Diagnoses Bursitis of right shoulder Right shoulder pain, unspecified chronicity Gregg Tello MD [address] [facility] [address] [place] [address] Phone: tel: fax: [facility] [address], [address] [address] Phone: tel: fax:[phone] Referral ID Status Reason Start Date Expiration Date Visits Re quested Visits Authorized [id number] Closed 03/30/2024 50 60 Scheduling Instructions Encounter Details Date Type Department Care Team (Latest Contact Info) Description 03/30/2024 Transcribe Orders [facility] [address] [place] [address] Gregg Tello MD [address] [facility] [address] [place] [address] Bursitis of right shoulder (Primary Dx); Right shoulder pain, unspecified chronicity Social History Tobacco Use Types Packs/Day Years Used Date Smoking Tobacco: Never Smokeless Tobacco: Never Alcohol Use Standard Drinks/Week Comments Not Currently 3 (1 standard drink = 0.6 oz pure alcohol) a couple times a week at max, typically a beer or a couple drinks. [facility] Utilities Answer Date Recorded In the past 12 months has Nutmeg, gas, oil, or water Jalousier threatened to shut off services in your [...] How often do you attend chur or scientology services? Never 01/25/2024 Do you belong to any clubs o r organizations such as hinduism groups, unions, fraternal or athletic groups, or [...] Score - Questions 1-9 0 3 09/2022 [facility] - Occupational Stress Questionnaire Answer Date [...] place to sleep or slept in a prison (including now)? No 01/25/2024 Education Answer Date Recorded What is the highest level of school you have completed or the highest degree you have received? 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 [address] [place] [address] Iva Ann, PT [place] Discharge Disposition: Discharged to home or Selfcare 02/10/2025 1:15 PM CDT Office Visit [facility] #[address] [place] [address] Emilia Reynolds MD #2 [facility] [address] [place] [address] Scheduled Referrals Name Type Priority Associated Diagnoses [...] documented as of this encounter Care Teams Bench Boring Machine Operator Relationship Specialty Start Date End Date Mandie Miner DO 2 [facility]. [address] [place] [address] PCP - General Family Medicine 01/25/24 Provider, None [place] 12/31/20 Britton Hopson MD #[address] [facility] [address] [place] [address] Consulting Physician Colon and Rectal Surgery 02/10/23 An Isaacs, CARDING MACHINE FEEDER, TAKE AWAY WORKER #2 [facility] [address] [place] [address] Nurse Practitioner Advanced Practice Nurse 09/18/23 08/16/24 Lorena Leon III, MD #2 [place] [address] Consulting Physician Urology 10/06/22 Rodríguez Keita MD #2 [place] [address] Consulting Physician Pulmonary Disease 08/17/23 Catarina Kline APRN, PROCESS SAFETY MANAGER #[address] [place] [address] Nurse Practitioner Advanced Practice Nurse 06/30/22 Cheri Ozuna APRN, TAKE AWAY WORKER #2 [place] [address] Nurse Practitioner Advanced Practice Nurse 04/19/24 Emilia Reynolds MD #[address] [address] Consulting Physician Urology 07/20/24 documented as of this encounter
--- OUTSIDE RECORDS SUMMARY | 2025-01-29 18:49 | XMS_ITS | Clinical Summary ---
Author Organization [facility] Address [address] [place] [address] Phone Care Team Providers Care Power Digger Operator Name Role Phone Shaunna Diego MD Primary Care Provider [phone] Allergies Active Allergy Reactions Criticality Noted Date [...] Comments Blood Pressure 151/77 09/16/2023 7:05 AM ADVENTURE EDUCATION TEACHER Pulse 93 09/16/2023 7:05 AM ADVENTURE EDUCATION TEACHER Temperature 36.6 C (97.9 F) 09/16/2023 7:05 AM ADVENTURE EDUCATION TEACHER Respiratory Rate 20 09/16/2023 7:05 AM ADVENTURE EDUCATION TEACHER Oxygen Saturation 98% 09/16/2023 7:15 AM ADVENTURE EDUCATION TEACHER Inhaled Oxygen Concentration - - Weight 98.4 kg (217 lb) 09/16/2023 7:05 AM ADVENTURE EDUCATION TEACHER Height 182.9 cm (6') 09/16/2023 7:05 AM ADVENTURE EDUCATION TEACHER Body Mass Index 29.43 09/16/2023 7:05 AM ADVENTURE EDUCATION TEACHER Plan of Treatment Health Maintenance Due Date Last Done Comments HEPATITIS B VACCINES (1 of 3 - 19+ 3-dose series) 2005 INFLUENZA VACCINE (#1) 2024 3, 06/12/2022, 05/27/2021, Additional history exists DTAP/TDAP/TD VACCINES (2 - Td or Tdap) 02/14/2025 02/14/2015 HPV VACCINES Aged Out No longer eligi ble based on patient's age to complete this topic Insurance [id number] [place] [id number] Member Subscriber Plan / Payer (Ef fective 2023-Present) Name:Ramiro Poole III Relation to Subscriber:Self Name:Ramiro Poole III Payer ID:[id number] (NAIC) Type:PPO Address: [facility] [id number] [place] [id number] Care Teams Power Digger Operator Relationship Specialty Start Date End Date Shaunna Diego MD [address] [place] [address] PCP - General Family Practice 04/14/18
--- OUTSIDE RECORDS SUMMARY | 2025-01-29 18:49 | XMS_ITS | Referral Summary ---
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 [employer] Not on file Not on file Not on file Last Filed Vital Signs Vital Sign Reading Time Taken Comments Blood Pressure 126/82 09/13/2023 12:09 PM POSTMASTER Pulse 104 09/13/2023 12:09 PM POSTMASTER Temperature 37.1 C (98.8 F) 09/13/2023 12:09 PM POSTMASTER Respiratory Rate 18 09/13/2023 12:09 PM POSTMASTER Oxygen Saturation 99% 09/13/2023 12:09 PM POSTMASTER Inhaled Oxygen Concentration - - Weight 108.4 kg (239 lb) 09/13/2023 12:09 PM POSTMASTER Height 182.9 cm (6') 09/13/2023 12:09 PM POSTMASTER Body Mass Index 32.41 09/13/2023 12:09 PM POSTMASTER Plan of Treatment Not on file Insurance [employer] [facility] [employer] [facility] [employer] Care Teams Citrix Consultant Relationship Specialty Start Date End Date Shaunna Diego MD PCP - General 09/13/17
[2025-01-29 20:25] VITALS: BP 143/88; PULSE 83; RESP 20; TEMP 36.6; O2SAT 100
[2025-01-29] MEDS: dexAMETHasone SOD PHOS INJ 10 MG/ML 1 ML VIAL BY MOUTH (20:29)
== END 2025-01-29 20:35 | disposition home or self-care (01) ==
PROVIDERS: Physician Assistant; Emergency Provider Emergency Medicine
DX: M54.16 Radiculopathy, lumbar region (principal); F41.9 Anxiety disorder, unspecified; K21.9 Gastro-esophageal reflux disease without esophagitis
CPT/HCPCS: 72131; 81003; 99284; J1100